=== PATIENT | male | born 1940 | race Caucasian/White ===

== ENCOUNTER → 2017-08-21 14:38 | Outpatient (POV) | payer MEDICARE, SELFPAY | PROVIDERS: Family Provider Internal Medicine Adolescent Medicine; Visit Provider Internal Medicine Nephrology | DX: Z00.00 Encounter for general adult medical examination without abnormal findings (principal) ==

== ENCOUNTER → 2018-03-08 14:01 | Outpatient (POV) | payer MEDICARE, SELFPAY | PROVIDERS: Family Provider Internal Medicine Adolescent Medicine; Visit Provider Internal Medicine Nephrology | DX: Z00.00 Encounter for general adult medical examination without abnormal findings (principal) ==

== ENCOUNTER → 2019-04-03 09:54 | Outpatient (CLI) | payer MEDICARE, OTHER, SELFPAY ==
--- NOTE | 2019-04-03 10:06 | ECG_ITS ---
APPROVED REPORT Exam: Resting ECG HR:61 bpm ECG Measurements Heart Rate 61 AXES NM 166 P 79 QRSd 80 QRS 62 QT 404 T 64 QTc 406 <Conclusion> Normal sinus rhythm with sinus arrhythmia Normal ECG Electronically signed by : Casimiro Cobos, 04/03/2019 13:42:47
[2019-04-03 10:49] LABS: Basophils # 0.1 K/mm3 (0-0.2); Eosinophils # 0.5 K/mm3 (0.0-0.4); Eosinophils % 5.6 % (0.1-12.0); Hematocrit 44.6 % (42.0-52.0); Hemoglobin 14.2 g/dL (14.1-18.0); Lymphocytes # 2.7 K/mm3 (0.7-4.5); Lymphocytes % 33.1 % (10-50); Mean Corpuscular HGB Conc 31.8 g/dL (31.8-35.4); Mean Corpuscular Hemoglobin 30.4 pg (27.0-31.2); Mean Corpuscular Volume 95.7 fl (80-94); Mean Platelet Volume 8.7 fl (7.4-10.4); Monocytes # 0.8 K/mm3 (0.1-1.0); Monocytes % 9.8 % (1.7-9.3); Neutrophils # 4.1 K/mm3 (1.8-7.8); Neutrophils % 50.4 % (37.0-80.0); Platelet Count 181 K/mm3 (142-424); Red Blood Count 4.66 M/mm3 (4.60-6.20); Red Cell Distribution Width 14.2 % (11.5-17.5); White Blood Count 8.1 K/mm3 (4.8-10.8)
== END ==
PROVIDERS: Visit Provider Otolaryngology
DX: Z01.818 Encounter for other preprocedural examination (principal); L98.9 Disorder of the skin and subcutaneous tissue, unspecified
CPT/HCPCS: 36415; 85025; 93005

== ENCOUNTER → 2022-01-04 09:29 | Outpatient (POV) | payer MEDICARE, OTHER, SELFPAY | PROVIDERS: Visit Provider Dermatology | DX: Z00.00 Encounter for general adult medical examination without abnormal findings (principal) ==

== ENCOUNTER → 2022-03-22 14:13 | Outpatient (POV) | payer MEDICARE, OTHER, SELFPAY | PROVIDERS: Visit Provider Dermatology | DX: Z00.00 Encounter for general adult medical examination without abnormal findings (principal) ==

== ENCOUNTER → 2022-04-12 12:52 | Outpatient (POV) | payer MEDICARE, OTHER, SELFPAY | PROVIDERS: Visit Provider Dermatology | DX: Z00.00 Encounter for general adult medical examination without abnormal findings (principal) ==

== ENCOUNTER 2024-02-20 09:00 | Observation (INO) | payer MEDICARE, OTHER, SELFPAY ==
[2024-02-20] VITALS (13 sets, daily range): BP systolic 136–186; BP diastolic 61–100; PULSE 54–102; RESP 15–21; TEMP 36.4–37; O2SAT 94–98; BMI 23.1; BMI 22.6
--- NOTE | 2024-02-20 09:03 | ECG_ITS ---
APPROVED REPORT Exam: Resting ECG HR:68 bpm ECG Measurements Heart Rate 68 AXES QRSd 93 QRS 57 QT 422 T 56 QTc 440 Conclusion Sinus rhythm with intermittent PVCs Electronically signed by : IWONA POLLARD, 02/20/2024 13:31:10
--- NOTE | 2024-02-20 09:08 | PC.NURSE ---
Family at BS
--- NOTE | 2024-02-20 09:10 | XR_ITS ---
FINAL REPORT CLINICAL HISTORY: Chest pain, dizziness, nausea FINDINGS: SINGLE-VIEW CHEST The heart size is normal. The mediastinum is normal. The lungs are clear. There is no pneumothorax. IMPRESSION: No acute cardiopulmonary process. Reviewed, Interpreted and Dictated by Gelacio Smith MD Transcribed by Mila Valdez Authenticated and [facility]
--- NOTE | 2024-02-20 09:13 | PC.NURSE ---
RAD at BS
[2024-02-20 09:15] LABS: Basophils # 0.1 K/mm3 (0-0.2); Basophils % 1.6 % (0.1-2.0); Eosinophils # 0.4 K/mm3 (0.0-0.4); Eosinophils % 5.2 % (0.1-12.0); Hematocrit 47.3 % (42.0-52.0); Hemoglobin 15.4 g/dL (14.1-18.0); Lymphocytes # 2.3 K/mm3 (0.7-4.5); Lymphocytes % 31.4 % (10-50); Mean Corpuscular HGB Conc 32.5 g/dL (31.8-35.4); Mean Corpuscular Hemoglobin 31.7 pg (27.0-31.2); Mean Corpuscular Volume 97.4 fl (80-94); Mean Platelet Volume 9.8 fl (7.4-10.4); Monocytes # 0.7 K/mm3 (0.1-1.0); Monocytes % 10.2 % (1.7-9.3); Neutrophils # 3.7 K/mm3 (1.8-7.8); Neutrophils % 51.6 % (37.0-80.0); Platelet Count 160 K/mm3 (142-424); Red Blood Count 4.85 M/mm3 (4.60-6.20); Red Cell Distribution Width 14.1 % (11.5-17.5); White Blood Count 7.2 K/mm3 (4.8-10.8)
[2024-02-20] MEDS: LACTATED RINGERS 1000ML 1,000 ML 999 ML IV (09:15)
[2024-02-20] MEDS: ONDANSETRON 4MG/2ML VIAL 4 MG IV (09:15)
[2024-02-20] MEDS: ASPIRIN 81MG CHEWABLE TABLET 324 MG PO (09:16)
--- NOTE | 2024-02-20 09:18 | PC.NURSE ---
Molina Bass at bedside
--- NOTE | 2024-02-20 09:20 | CT_ITS ---
FINAL REPORT TECHNIQUE: thin section axial CT with and without IV contrast supplemented with multiplanar 3-D reconstruction of the head. This study was performed with techniques to keep radiation doses as low as reasonably achievable, (ALARA)individualized dose reduction techniques using automated exposure control or adjustment of mA and/or kV according to the patient's size were employed. CLINICAL HISTORY: isolated dizziness, falling to left. FINDINGS: The cranial circulation is unremarkable. There is no significant stenosis, aneurysm or occlusion. The right A1 segment is dominant. IMPRESSION: No acute process. Reviewed, Interpreted and Dictated by Gelacio Smith MD Transcribed by Mila Valdez Authenticated and [facility]
--- NOTE | 2024-02-20 09:20 | CT_ITS ---
FINAL REPORT TECHNIQUE: NASCET technique utilized for stenosis evaluation. CLINICAL HISTORY: isolated dizziness, falling to left. FINDINGS: RIGHT CAROTID: No significant stenosis is seen of the cervical common or internal carotid artery. LEFT CAROTID: No significant stenosis seen of the cervical common or internal carotid artery. VERTEBRALS: The vertebral arteries are codominant. No significant stenosis is present. IMPRESSION: No significant arterial abnormality. Reviewed, Interpreted and Dictated by Gelacio Smith MD Transcribed by Mila Valdez Authenticated and . [facility]
--- NOTE | 2024-02-20 09:20 | CT_ITS ---
FINAL REPORT TECHNIQUE: Axial CT images were performed through the head. Coronal reformatted images were submitted. This study was performed with techniques to keep radiation doses as low as reasonably achievable (ALARA). Individualized dose reduction techniques using automated exposure control or adjustment of mA and/or kV according to the patient's size were employed. CLINICAL HISTORY: isolated dizziness, falling to left. FINDINGS: There is moderate atrophy with proportional ventriculomegaly. There is mild decreased attenuation in the deep white matter bilaterally. There is no evidence of hemorrhage. There is no mass or edema identified. There is no abnormal extra-axial fluid seen. The sinuses are well aerated. IMPRESSION: Chronic appearing findings without acute intracranial abnormality. Reviewed, Interpreted and Dictated by Gelacio Smith MD Transcribed by Mila Valdez Authenticated and . [facility]
--- NOTE | 2024-02-20 09:22 | PC.NURSE ---
Dr. Auguste would like to Stroke Alert pt. I notified radiology for pt to go STAT to scan.
[2024-02-20 09:23] LABS: Chloride 109 mmol/L (98-107); Sodium 138 mmol/L (136-145)
[2024-02-20 09:25] LABS: Magnesium 1.8 mg/dl (1.6-2.3)
[2024-02-20 09:26] LABS: Alanine Aminotransferase 15 U/L (12-78); Albumin/Globulin Ratio 1.6 (1.1-1.8); Alkaline Phosphatase 65 U/L (38-126); Aspartate Amino Transferase 31 U/L (17-59); Bilirubin,Total 0.8 mg/dl (0.2-1.3); Blood Urea Nitrogen 22 mg/dl (9-20); Calcium 8.8 mg/dl (8.4-10.2); Carbon Dioxide 25 mmol/L (22.0-30.0); Creatinine Clearance Estimated 45 mL/min (50-200); Estimated Glomerular Filt Rate 48 ml/min (>60); GFR (African American) 58 ML/MIN (>60); Globulin 2.5 g/dL (1.3-3.2); Glucose 161 mg/dl (74-100); Total Protein,Serum 6.5 g/dl (6.3-8.2)
[2024-02-20 09:34] LABS: NT Pro Brain Natriuretic Pep. 426 pg/mL (0-450)
[2024-02-20 09:42] LABS: T4 (Thyroxine) 8.1 ug/dl (5.53-11.0)
[2024-02-20] MEDS: SODIUM CHLORIDE 0.9% 10ML SYR (RAD ONLY) 10 ML IV (09:44)
[2024-02-20] MEDS: 0.9 % SODIUM CHLORIDE 50 ML VIAL IV (09:44)
[2024-02-20 09:45] LABS: Troponin I < 0.01 ng/ml (0.00-0.034)
[2024-02-20] MEDS: IOPAMIDOL-370 (76%);100ML BOTTLE 80 ML IV (09:45)
--- NOTE | 2024-02-20 10:11 | HMH.EDCP ---
Discharge Plan Disposition Patient Disposition: Admitted Chief Complaint: Dizziness Prescriptions Prescriptions: No Action pantoprazole 20 mg tablet,delayed release (DR/EC) 20 mg PO DAILY metformin 500 mg tablet 500 mg PO BID aspirin [Aspir-81] 81 mg tablet,delayed release (DR/EC) 81 mg PO DAILY levothyroxine 75 mcg capsule 75 mcg PO DAILY lisinopril-hydrochlorothiazide 10-12.5 mg tablet 1 tab PO DAILY Referrals Follow up/Referrals: Casimiro Cobos MD [Primary Care Provider] - See instructions Clinical Impressions Clinical Impression: Dizziness, Atrial bigeminy Print Language Print Language: Azeri Discharge ED Provider: Kevin Auguste HPI General Chief Complaint: Dizziness Stated Complaint: Chest Pain Time Seen by Provider: 02/20/24 09:08 History of Present Illness HPI narrative: Please note that above description of symptoms, in this electronic medical record under categorization of recalled from ER triage doctor by RN are reflective of an initial nursing assessment, however, is not reflective of my full history and physical exam that was personally taken and clarified. Consequentially, this preceding description of symptoms, which may include the patient's categorized chief complaint in the EMR, do not reflect my personal clinical impression, and the ultimate description of history of present illness and patient stated complaints should be deferred to this section of the note. Unless stated otherwise or congruent with this section of the note, additional signs, symptoms, or incongruence should be interpreted as inaccurate with my clinical impression. Related Data Home Medications ?Medication ?Instructions ?Recorded ?Confirmed aspirin 81 mg tablet,delayed 81 mg PO DAILY preventitive 02/25/19 12/13/21 release (Aspir-) levothyroxine 75 mcg capsule 75 mcg PO DAILY thyroid 02/25/19 12/13/21 lisinopril 10 1 tab PO DAILY blood pressure 02/25/19 12/13/21 mg-hydrochlorothiazide 12.5 mg tablet metformin 500 mg tablet 500 mg PO BID sugar 02/25/19 12/13/21 pantoprazole 20 mg tablet,delayed 20 mg PO DAILY stomach 02/25/19 12/13/21 release Allergies Allergy/AdvReac Type Severity Reaction Status Date / Time morphine Allergy Intermediate I-ITCHING Verified 12/13/21 12:56 [facility] Disclaimer: The information contained in this section may have been updated after the patient was seen, as this information can be updated by other users. Social History Smoking Status: Former smoker alcohol intake: never substance use type: denies use current occupational status: retired Travel in the last 8 weeks: None household members: spouse housing: house current occupational exposures/hazards: No caffeine: Yes ROS Obtained: Yes All systems reviewed & no additional complaints except as documented Physical Exam General General appearance: alert and in distress (Secondary to nausea) Eye Eye exam: Present normal appearance, PERRL and EOMI; Absent nystagmus Neck Neck exam: Present normal inspection and trachea midline Chest Chest inspection: Present normal inspection and symmetric chest wall rise Respiratory Respiratory exam: Present normal lung sounds bilaterally; Absent respiratory distress, wheezes, stridor, accessory muscle use or prolonged expiratory phase Cardiovascular Cardiovascular exam: Present normal rhythm, bradycardia, systolic murmur and other (Pulses equal and symmetric in upper and lower extremities) Abdominal Exam Abdominal exam: Present soft; Absent distention or tenderness Extremities Exam Extremities exam: Absent edema Neurological Exam Neurological exam: Present alert, oriented X3, CN II-XII intact and other (Cerebellar exam within normal limits); Absent motor sensory deficit Skin Skin exam: Present warm and dry; Absent cyanosis, diaphoresis or pallor HEART Score HEART Score HEART Score assessment performed?: Yes History (anamnesis): Moderately suspicious ECG: Normal Age: >65 years Risk factors: Atherosclerosis history Troponin: </= normal limit HEART Score: 5 Critical Care Critical Care Time Critical Care Time: Yes (neuro) Attestation: On 02/20/24, the high probability of a clinically significant, sudden or life threatening deterioration of the following system(s) required my full and direct attention, intervention and personal management. The time I documented below is in addition to time spent performing reported procedures but includes the following listed in this critical care notation. Total Time Total Critical Care Time: 45 Medical Decision Making Medical Records Medical records reviewed: Yes I reviewed the patient's medical records. Sreedhar Inquiry Pt receiving controlled substance: No Sreedhar was queried for this patient: No Vital Signs Vital Signs: 02/20/24 09:01 02/20/24 10:05 02/20/24 10:31 Temperature 98.6 F Temperature Source Oral Pulse Rate 62 Pulse Rate [Right] 102 H Respiratory Rate 17 16 Blood Pressure 177/70 H 171/72 H Blood Pressure [Right Arm] 186/100 H Blood Pressure Mean 111 105 Blood Pressure Mean [Right Arm] 128 Blood Pressure Source [Right Arm] Automatic Cuff 02 Sat by Pulse Oximetry 98 98 Oxygen Delivery Method Room Air Room Air 02/20/24 11:01 02/20/24 11:31 Temperature Temperature Source Pulse Rate 62 59 L Pulse Rate [Right] Respiratory Rate 18 Blood Pressure 169/75 H 170/87 H Blood Pressure [Right Arm] Blood Pressure Mean 108 111 Blood Pressure Mean [Right Arm] Blood Pressure Source [Right Arm] 02 Sat by Pulse Oximetry 95 95 Oxygen Delivery Method Room Air Room Air Lab Data Labs: Lab Results 02/20/24 09:01: WBC 7.2, RBC 4.85, Hgb 15.4, Hct 47.3, MCV 97.4 H, MCH 31.7 H, MCHC 32.5, RDW 14.1, Plt Count 160, MPV 9.8, Neut % (Auto) 51.6, Lymph % (Auto) 31.4, Carlton % (Auto) 10.2 H, Eos % (Auto) 5.2, Baso % (Auto) 1.6, Neut # (Auto) 3.7, Lymph # (Auto) 2.3, Carlton # (Auto) 0.7, Eos # (Auto) 0.4, Baso # (Auto) 0.1, Sodium 138, Potassium 4.0, Chloride 109 H, Carbon Dioxide 25, Anion Gap 8.0, BUN 22 H, Creatinine 1.40 H, Estimated Creat Clear 45, Estimated GFR 48 L, Est GFR ( Amer) 58 L, Glucose 161 H, Hemoglobin A1c 6.9 H, Calcium 8.8, Magnesium 1.8, Total Bilirubin 0.8, AST 31, ALT 15, Alkaline Phosphatase 65, Troponin I < 0.01, NT-Pro-B Natriuret Pep 426, Total Protein 6.5, Albumin 4.0, Globulin 2.5, Albumin/Globulin Ratio 1.6, TSH 16.30 H, Thyroxine (T4) 8.1 02/20/24 09:01 02/20/24 09:01 Response Orders (Tests/Meds): ED MEDICATIONS Discontinued Medications Generic Name Dose Route Start Last Admin Trade Name Freq PRN Reason Stop Dose Admin Aspirin 324 mg 02/20/24 09:11 02/20/24 09:16 Aspirin 81mg Chewable Tablet PO 02/20/24 09:12 324 mg ONCE ONE Administration Lactated Ringer's 1,000 mls @ 999 mls/hr 02/20/24 09:13 02/20/24 09:15 Lactated Ringer's 1000 Ml Bag IV 02/20/24 10:13 999 mls/hr .Q1H1M ONE Administration Iopamidol 80 ml 02/20/24 09:39 02/20/24 09:45 Iopamidol-370 (76%);100ml Bottle IV 02/20/24 09:40 80 ml ONCE ONE Administration Meclizine HCl 50 mg 02/20/24 11:38 Meclizine 25mg Tablet PO 02/20/24 11:39 ONCE ONE Ondansetron HCl 4 mg 02/20/24 09:13 02/20/24 09:15 Ondansetron 4mg/2ml Vial IV 02/20/24 09:14 4 mg ONCE ONE Administration Sodium Chloride 50 ml 02/20/24 09:39 02/20/24 09:44 0.9 % Sodium Chloride 50 Ml Vial IV 02/20/24 09:40 50 ml ONCE ONE Administration Sodium Chloride 10 ml 02/20/24 09:39 02/20/24 09:44 Sodium Chloride 0.9% 10ml Syr (Rad Only) IV 02/20/24 09:40 10 ml ONCE ONE Administration ORDERS Category Date Time Status CT angio head Stat Cat Scan 02/20/24 09:[address] angio neck Stat Cat Scan 02/20/24 09:[address] head/brain wo con Stat Cat Scan 02/20/24 09:20 Completed Cardiology Consult [Consult to Cardiology] [CONS] Cons 02/20/24 11:38 Active Routine CXR --portable [XR chest portable] Stat Exams 02/20/24 09:10 Completed CMP [Comprehensive Metabolic Panel] Stat Lab 02/20/24 09:01 Completed Complete Blood Count Auto Diff Stat Lab 02/20/24 09:01 Completed Hemoglobin A1C Stat Lab 02/20/24 09:01 Completed MAG [Magnesium] Stat Lab 02/20/24 09:01 Completed NT Pro Brain Natriuretic Pep. Stat Lab 02/20/24 09:01 Completed T4 (Thyroxine) Stat Lab 02/20/24 09:01 Completed TSH [Thyroid Stimulating Hormone] Stat Lab 02/20/24 09:01 Completed Troponin I Q3H Lab 02/20/24 12:15 Ordered Troponin I Q3H Lab 02/20/24 15:15 Ordered Troponin I Stat Lab 02/20/24 09:01 Completed MDM Narrative Medical Decision Narrative: 83 male who hypertension, hyperlipidemia, dm, hypothyroidism presenting with dizziness. Patient states that he woke up around 7 AM with dizziness that he is never had before. Started also having chest pain. Called EMS. EMS arrived, patient no longer complaining of chest pain, but having dizziness. States that he was falling to the left, family corroborating story. Patient states he is never had a history of vertigo, never had anything like this in the past. No current chest pain, no other neurologic deficits. No vision changes, headache, but has been nauseated and vomiting due to the dizziness. History was obtained via conversation with patient, family, EMS. On arrival, patient hemodynamically stable, alert, oriented x4, appropriate, GCS 15, moving all extremities spontaneously, pupils equal and reactive to light. Full physical exam performed and significant for NIHSS 0. Cranial nerve, cerebellar, motor and sensory exams normal. Ambulation trial deferred at this time. Patient's cardiac exam with right upper sternal border murmur concerning for aortic stenosis, but no other abnormalities on cardiovascular exam. Lungs are clear to auscultation bilaterally. Differential includes posterior circulation stroke, BPPV, metabolic abnormality, arrhythmia, ACS, MA, dissection, among others. Patient was given 324 mg aspirin, 4 mg Zofran for symptomatic management and correction of underlying abnormalities. Patient placed on continuous cardiac monitoring and continuous pulse ox with initial blood pressure 177/70, heart rate 62, saturation 98% on room air. Independent interpretation of EKG shows sinus rhythm 68 beats a minute with intermittent PVCs. No ST or T wave changes concerning for acute ischemia. FL within normal limits, QRS 93, QTc 440 Workup independently interpreted and significant for nonactionable CBC. Chemistry with mild HUNTER versus CKD, unknown baseline, creatinine 1.4. Patient's troponin and BNP nonactionable. Chest x-ray negative.. On independent interpretation of imaging, no acute intracranial hemorrhage, no obvious vascular stenosis, dissection, or other abnormality on CTA head and neck. See radiology read for full review of final results. Heart score 5. He was consulted and case was discussed at length. They visited patient. Recommended admission for telemetry monitoring. On reevaluation, patient remains dizzy, nauseated. Meclizine was given. I am still concerned about posterior circulation stroke that was not identified on CTA of the head and neck. Because of this, as well as cardiology recommendations, I contacted hospitalist and case was discussed at length, ultimately patient to be admitted for further MRI, cardiac monitoring, and further evaluation. Because patient high risk for clinical decompensation, deemed appropriate for inpatient admission. Results were relayed to patient who voiced understanding and patient was agreeable to inpatient admission and management. Patient was admitted to the hospital for further definitive management. Section Housekeeper disclaimer Much of this encounter note is an electronic reinforcing steel worker spoken language to printed text. Electronic reinforcing steel worker of the spoken language may permit errors. Although I have reviewed the note, some errors may still exist.
--- NOTE | 2024-02-20 11:23 | PC.NURSE ---
Called Cardiology per Dr Auguste to have them come and see this pt
--- NOTE | 2024-02-20 11:41 | PC.NURSE ---
Dianna Valdovinos APRN in Cardiology returned call, gave information for consult.
[2024-02-20 12:12] LABS: Hemoglobin A1C 6.9 % (4.0-6.0)
[2024-02-20] MEDS: MECLIZINE 25MG TABLET 50 MG PO (12:28)
--- NOTE | 2024-02-20 12:40 | CA_ITS ---
APPROVED REPORT EXAM: Comprehensive 2D, Doppler, and color-flow Echocardiogram Security Assistant: PRESTON Alvarado, RVS Ht: 6 ft 2 in Wt: 180lbs BSA: 2.08 BP: 170/87 mmHg Rhythm: Bradycardia Indications: CP, MurmurVertigo, Brett cardia, SOA, Ex-smoker, DM, HTN, HLD 2D Dimensions IVSd 1.13 cm M: 0.6-1.2 LVEF (Visual) 49.20 % PWd 1.12 cm M: 0.6 - 1.2 LA Volume 56.10 mL LVDd 4.71 cm M: 4.2 - 5.9 LA Volume Index [id number] mL/m2 (M/F) 16-34 LVDs 3.54 cm M: 2.5 - 4.0 Left Atrium 4.02 cm M: 3.0 - 4.0 M-Mode Dimensions RVDd 3.35 cm (0.9-2.6) LA Diam 3.76 cm (1.9-4.0) LVDd 4.45 cm (3.5-5.7) LVDs 3.51 cm (3.5-5.7) IVSd 1.00 cm (0.6-1.1) PWd 0.90 cm (0.6-1.1) EF (Teich) 43.20% EPSs 0.87 cm FS 21.10% EDV (Teich) 90.10 mL TAPSE 2.01 (<1.7) ESV (Teich) 51.20 mL LV Diastology E Decel Time 227 (160-240 msec) E/A Ratio 0.85 MED A' 12.00 cm/s LAT A' 11.50 cm/s Aortic Valve MAGGIE Index 1.46 cm2/m2 AoV Peak Romeo. 119.0 (50-130 cm/s) AO Peak GR. 5.60 mmHg AO Mean GR. 2.80 (<5 mmHg) AO VTI 28.4 (18-25 cm) MAGGIE (VTI) 3.11 (2.5-4.5 cm2) Mitral Valve MV A Velocity 83.0 (40-130 cm/s) E/A Ratio 0.85 Pulmonary Valve [place] End VMAX 178.0 cm/s Tricuspid Valve TR P. Velocity 276.00 cm/s RAP Estimate 10.00 mmHg RVSP 40.50 mmHg Left Ventricle The left ventricle is normal size. The left ventricular systolic function is normal. The left ventricular ejection fraction is within the normal range. There is increased LV wall thickness. Proximal septal thickening is noted. There is normal LV segmental wall motion. The left ventricular diastolic function is normal. LVEF is 55%. Right Ventricle Right ventricle is mildly dilated. The right ventricular systolic function is normal. Atria The left atrium size is normal. The right atrium is mildly dilated. There is no Doppler evidence of interatrial shunt. Aortic Valve The aortic valve is mildly thickened. There is no aortic valvular stenosis. No aortic regurgitation. Mitral Valve The mitral valve is normal in structure. No evidence of mitral valve stenosis. Mild mitral regurgitation. Tricuspid Valve The tricuspid valve leaflets are thin and pliable. Mild tricuspid regurgitation. RVSP is 30-35 mmHg. Pulmonic Valve The pulmonary valve is normal in structure. Trace pulmonic regurgitation. Great Vessels The aortic root is normal in size. The ascending aorta is normal in size. IVC is normal in size and collapses >50% with inspiration. Pericardium There is no pericardial effusion. Other Information Study Quality: Fair Conclusion Normal biventricular systolic function. Mild RV dilation. Mild RA dilation. Mild MR, mild TR. RVSP 30-35 mmHg. Electronically signed by : Sadaf Ballesteros MD 02/21/2024 10:07:19
--- NOTE | 2024-02-20 12:44 | P.CONCA_ITS ---
History of Present Illness History of Present Illness Consult date: 02/20/24 Requesting physician: Kevin Auguste Chief complaint: dizziness History of present illness: This is an 83-year-old white gentleman who presented to the emergency department complaints of dizziness. He has a past medical history of hypertension, hyperlipidemia, diabetes mellitus and hypothyroidism. The patient has been noncompliant with his medications and stopped taking all of his medicines about 6 months or more ago. The patient states that he woke up around 7 AM this morning with dizziness. He states that he was severely dizzy and when he tried to sit up on the bed he was leaning to his left. He states that he was unable to really sit up independently because of how dizzy he was. He states that his had to help him walk to the chair. He states that this was severe. He states at times it feels like the room is spinning and then at times it feels like he is the one spinning and very dizzy and unsteady and feels like he is leaning to the left. He denied any chest pain or pressure. He states he is short of breath intermittently at times and no worse than usual for him. He denies any lower extremity edema. He does have associated nausea with the dizziness. He states that he has been dry heaving and vomited small amounts on 2 or 3 occasions because of the significant dizziness. He denies any fever, chills, diarrhea constipation, PND or orthopnea. 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 Upon arrival to the emergency department the patient was found to be in ventricular bigeminy and had an elevated blood pressure with a systolic blood pressure greater than 170. Cardiology was then consulted. CTA of the head and neck were both negative for any acute processes. [facility] Disclaimer: The information contained in this section may have been updated after the patient was seen, as this information can be updated by other users. Medical History (Updated 02/20/24 @ 13:05 by Dianna Valdovinos APRN) Renal insufficiency Medical non-compliance Hypothyroidism Diabetes mellitus Hyperlipidemia Hypertension Ventricular bigeminy Social History Smoking Status: Former smoker alcohol intake: never substance use type: denies use current occupational status: retired Travel in the last 8 weeks: None household members: spouse housing: house current occupational exposures/hazards: No caffeine: Yes Review of Systems Review of Systems Review of systems:: pertinent systems reviewed and negative unless documented below Constitutional Constitutional: Reports system reviewed and no additional complaints, except as documented and Denies headache(s) Eyes Eyes: Reports system reviewed and no additional complaints, except as documented ENT Ears, Nose, Mouth, and Throat: Reports system reviewed and no additional complaints, except as documented, Reports disequilibrium, Reports dizziness and Denies headache(s) *Cardiovascular Cardiovascular: Reports system reviewed and no additional complaints, except as documented, Denies chest pain, Reports dyspnea on exertion and Reports ligh theadedness *Respiratory Respiratory: Reports system reviewed and no additional complaints, except as documented and Reports dyspnea on exertion *Gastrointestinal Gastrointestinal: Reports system reviewed and no additional complaints, except as documented *Genitourinary Genitourinary: Reports system reviewed and no additional complaints, except as documented *Musculoskeletal Musculoskeletal: Reports system reviewed and no additional complaints, except as documented Integumentary/Breasts Skin/Breast: Reports system reviewed and no additional complaints, except as documented *Neurologic Neurologic: Reports system reviewed and no additional complaints, except as documented, Reports disequilibrium, Reports dizziness and Denies headache(s) Psychiatric Psychiatric: Reports system reviewed and no additional complaints, except as documented Endocrine Endocrine: Reports system reviewed and no additional complaints, except as documented Hematologic/Lymphatic Hematologic/Lymphatic: Reports system reviewed and no additional complaints, except as documented Allergic/Immunologic Allergic/Immunologic: Reports system reviewed and no additional complaints, except as documented Exam Data for Last 24 hours Vital signs and Labs for Last 24 Hours: Temp Pulse Resp BP Pulse Ox O2 Del Method 98.6 F 63 18 165/66 H 96 Room Air 02/20/24 09:01 02/20/24 12:01 02/20/24 11:31 02/20/24 12:01 02/20/24 12:02/20/24 12:01 Laboratory Results - last 24 hr 02/20/24 09:01: WBC 7.2, RBC 4.85, Hgb 15.4, Hct 47.3, MCV 97.4 H, MCH 31.7 H, MCHC 32.5, RDW 14.1, Plt Count 160, MPV 9.8, Neut % (Auto) 51.6, Lymph % (Auto) 31.4, [place] % (Auto) 10.2 H, Eos % (Auto) 5.2, Baso % (Auto) 1.6, Neut # (Auto) 3.7, Lymph # (Auto) 2.3, [place] # (Auto) 0.7, Eos # (Auto) 0.4, Baso # (Auto) 0.1, Sodium 138, Potassium 4.0, Chloride 109 H, Carbon Dioxide 25, Anion Gap 8.0, BUN 22 H, Creatinine 1.40 H, Estimated Creat Clear 45, Estimated GFR 48 L, Est GFR ( Amer) 58 L, Glucose 161 H, Hemoglobin A1c 6.9 H, Calcium 8.8, Magnesium 1.8, Total Bilirubin 0.8, AST 31, ALT 15, Alkaline Phosphatase 65, Troponin I < 0.01, NT-Pro-B Natriuret Pep 426, Total Protein 6.5, Albumin 4.0, Globulin 2.5, Albumin/Globulin Ratio 1.6, TSH 16.30 H, Thyroxine (T4) 8.1 I & O for Last 24 hours: Intake & Output 02/17/24 02/18/24 02/19/24 02/20/24 23:59 23:59 23:59 23:59 Weight 180 lb Narrative: EKG is sinus rhythm with PVCs and a rate of 68 bpm. Telemetry strip is sinus rhythm with ventricular bigeminy and a rate in the 60s. Constitutional Constitutional: no acute distress and average body habitus *Routine HEENT Exam Head: Present normocephalic and atraumatic ENT: Present mucous membranes moist *Routine Neck Exam Neck: Present supple, full ROM and normal carotid upstroke; Absent JVD, carotid bruit or lymphadenopathy *Routine Respiratory Exam Respiratory: Present CTA bilaterally, normal respiratory effort, able to speak in complete sentences and symmetric chest movement *Routine Cardiovascular Exam Cardiovascular: Present RRR, Normal S1 and Normal S2; Absent murmur or gallop *Routine Abdominal Exam Abdominal: Present soft and normoactive bowel sounds; Absent tenderness, distended or organomegaly *Routine Extremities Exam Extremities: Present full ROM, pulses intact and normal capillary refill; Absent cyanosis, clubbing or edema *Routine Skin Exam Skin: Present intact and warm; Absent erythema *Routine Neurological Exam Neurological: Present alert, oriented X3 and CN II-XII intact; Absent sensory deficit or motor deficit Routine Psychiatric Exam Psychiatric: Present normal affect Meds Home Medications and Allergies Home Medications ?Medication ?Instructions ?Recorded ?Confirmed ?Type aspirin 81 mg tablet,delayed 81 mg PO DAILY preventitive 02/25/19 12/13/21 History release (Aspir-) levothyroxine 75 mcg capsule 75 mcg PO DAILY thyroid 02/25/19 12/13/21 History lisinopril 10 1 tab PO DAILY blood pressure 02/25/19 12/13/21 History mg-hydrochlorothiazide 12.5 mg tablet metformin 500 mg tablet 500 mg PO BID sugar 02/25/19 12/13/21 History pantoprazole 20 mg tablet,delayed 20 mg PO DAILY stomach 02/25/19 12/13/21 History release New Prescriptions to Start Prescriptions: Allergies Allergy/AdvReac Type Severity Reaction Status Date / Time morphine Allergy Intermediate I-ITCHING Verified 12/13/21 12:56 Assessment and Plan *Assessment and plan (1) Dizziness: Status: Acute Category: Medical Code(s): R42 - Dizziness and giddiness (2) Ventricular bigeminy: Status: Acute Category: Medical Code(s): I49.8 - Other specified cardiac arrhythmias (3) Hypertension: Status: Acute Qualifiers: Hypertension type: primary hypertension Qualified Code(s): I10 - Essential (primary) hypertension Category: Medical Code(s): I10 - Essential (primary) hypertension (4) Hyperlipidemia: Status: Acute Qualifiers: Hyperlipidemia type: mixed hyperlipidemia Qualified Code(s): E78.2 - Mixed hyperlipidemia Category: Medical Code(s): E78.5 - Hyperlipidemia, unspecified (5) Diabetes mellitus: Status: Acute Qualifiers: Diabetes mellitus complication status: without complication 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: without construction 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 use Diabetes mellitus type: type 2 Qualified Code(s): E11.9 - Type 2 diabetes mellitus without complications Category: Medical Code(s): E11.9 - Type 2 diabetes mellitus without complications (6) Hypothyroidism: Status: Acute Qualifiers: Hypothyroidism type: unspecified Qualified Code(s): E03.9 - Hypothyroidism, unspecified Category: Medical Code(s): E03.9 - Hypothyroidism, unspecified (7) Medical non-compliance: Status: Acute Category: Medical Code(s): Z91.199 - Patient's noncompliance with other medical treatment and regimen due to unspecified reason (8) Renal insufficiency: Status: Acute Category: Medical Code(s): N28.9 - Disorder of kidney and ureter, unspecified Plan Plan: 1. The patient presented to the emergency department with complaints of dizziness. He is still quite dizzy during my physical examination. However, he is neurologically intact and no nystagmus is noted. He remains in ventricular bigeminy during the cardiology examination. We do recommend that the patient be admitted to the hospital and placed on telemetry for observation for at least 24 hours. We want to rule out any high-grade AV blocks, bradycardia or tacky arrhythmias secondary to the ventricular bigeminy. 2. Will obtain an echocardiogram to evaluate his LV function secondary to his dizziness and shortness of breath. 3. CTA of the head and neck were negative for any stenosis. 4. Recommend a brain MRI with and without contrast in the morning to definitively rule out a CVA. 5. He denies any chest pain or pressure. His initial troponin is negative. We do recommend serial troponins to rule out a non-STEMI. 6. His blood pressure is elevated. He reports that he stopped taking his medicine over 6 months ago. He needs better control of his blood pressure. Will restart lisinopril 10 mg p.o. daily. 7. Repeat a BMP in the morning. His creatinine is 1.4 today so we want to make sure that this does not worsen with 3 initiating lisinopril. 8. The patient does have hypothyroidism. His TSH is greater than 16. This could be the cause of his ventricular ectopy. The patient does need treatment of his hypothyroidism. Will defer this to the hospitalist. 9. Further recommendations will be made pending the patient's response to treatment and the results of his echocardiogram. Thank you for the opportunity to help participate in the care of this patient. All recommendations and orders are per Dr. Ballesteros.
[2024-02-20] MEDS: LISINOPRIL 10MG TABLET 10 MG PO (13:51)
--- NOTE | 2024-02-20 14:00 | EXP.HP ---
History of Present Illness *Admission Date: 02/20/24 *Reason for visit:: Dizziness *History of present illness: This is an 83-year-old white gentleman with past medical history of renal insufficiency, hypothyroidism, diabetes, hyperlipidemia, hypertension, bigeminy. Patient admits to 6 months of medical noncompliance for unknown reasons. Patient presents to hospital complaining of dizziness starting at 7 AM. Patient reports left-sided falling due to ataxia with vertigo/lightheadedness symptoms noted. Patient unable to sit/stand without ataxia secondary to dizziness symptoms. Denies recent infections. Admits to dry heaves and small emesis today. Denies abdominal pain, diarrhea, constipation, fevers, chills, known sick contacts, lower extremity swelling, SOB/VELEZ. Patient found to be bradycardic upon presentation in emergency room. Patient required assistance from today to prevent fall secondary to ataxia. Patient's blood pressure elevated in emergency room with systolic over 170s. CTA head/neck in emergency room negative for acute CVA. Patient noted to be in bigeminy at time of initial ED evaluation. [facility] Disclaimer: The information contained in this section may have been updated after the patient was seen, as this information can be updated by other users. Medical History (Updated 02/20/24 @ 13:05 by Dianna Valdovinos APRN) Renal insufficiency Medical non-compliance Hypothyroidism Diabetes mellitus Hyperlipidemia Hypertension Ventricular bigeminy Social History Smoking Status: Former smoker alcohol intake: never substance use type: denies use current occupational status: retired Travel in the last 8 weeks: None household members: spouse housing: house current occupational exposures/hazards: No caffeine: Yes Review of Systems Constitutional Constitutional: Reports system reviewed and no additional complaints, except as documented ENT Ears, Nose, Mouth, and Throat: Reports disequilibrium and Reports dizziness *Neurologic Neurologic: Reports system reviewed and no additional complaints, except as documented, Reports disequilibrium and Reports dizziness Meds Home Medications and Allergies Home Medications ?Medication ?Instructions ?Recorded ?Confirmed ?Type No Known Home Medications 02/20/24 02/20/24 History New Prescriptions to Start Prescriptions: Allergies Allergy/AdvReac Type Severity Reaction Status Date / Time morphine Allergy Intermediate I-ITCHING Verified 12/13/21 12:56 Exam Data for Last 24 hours Vital signs and Labs for Last 24 Hours: Temp Pulse Resp BP Pulse Ox O2 Del Method 98.6 F 63 18 165/66 H 96 Room Air 02/20/24 09:01 02/20/24 12:01 02/20/24 11:31 02/20/24 12:01 02/20/24 12:01 02/20/24 12:01 Laboratory Results - last 24 hr 02/20/24 09:01: WBC 7.2, RBC 4.85, Hgb 15.4, Hct 47.3, MCV 97.4 H, MCH 31.7 H, MCHC 32.5, RDW 14.1, Plt Count 160, MPV 9.8, Neut % (Auto) 51.6, Lymph % (Auto) 31.4, [place] % (Auto) 10.2 H, Eos % (Auto) 5.2, Baso % (Auto) 1.6, Neut # (Auto) 3.7, Lymph # (Auto) 2.3, [place] # (Auto) 0.7, Eos # (Auto) 0.4, Baso # (Auto) 0.1, Sodium 138, Potassium 4.0, Chloride 109 H, Carbon Dioxide 25, Anion Gap 8.0, BUN 22 H, Creatinine 1.40 H, Estimated Creat Clear 45, Estimated GFR 48 L, Est GFR ( Amer) 58 L, Glucose 161 H, Hemoglobin A1c 6.9 H, Calcium 8.8, Magnesium 1.8, Total Bilirubin 0.8, AST 31, ALT 15, Alkaline Phosphatase 65, Troponin I < 0.01, NT-Pro-B Natriuret Pep 426, Total Protein 6.5, Albumin 4.0, Globulin 2.5, Albumin/Globulin Ratio 1.6, TSH 16.30 H, Thyroxine (T4) 8.1 I & O for Last 24 hours: Intake & Output 02/17/24 02/18/24 02/19/24 02/20/24 23:59 23:59 23:59 23:59 Weight 81.647 kg Constitutional Constitutional: no acute distress *Routine HEENT Exam Head: Present normocephalic Eye: Present EOMI ENT: Present mucous membranes moist *Routine Neck Exam Neck: Present supple and full ROM *Routine Respiratory Exam Respiratory: Present diminished air movement *Routine Cardiovascular Exam Cardiovascular: Present RRR, Normal S1 and Normal S2 *Routine Abdominal Exam Abdominal: Present soft and normoactive bowel sounds *Routine Rectal Exam Rectal:: deferred *Routine Genitalia Exam Genitalia:: deferred *Routine Extremities Exam Extremities: Present full ROM and normal capillary refill *Routine Skin Exam Skin: Present intact and dry *Routine Neurological Exam Neurological: Present alert, oriented X3 and abnormal gait Assessment and Plan *Assessment and plan (1) Renal insufficiency: Status: Acute Category: Medical Code(s): N28.9 - Disorder of kidney and ureter, unspecified (2) Diabetes mellitus: Status: Acute Qualifiers: Diabetes mellitus complication status: without complication Diabetes mellitus senior living insulin use: without intermediate accountant use Diabetes mellitus type: type 2 Qualified Code(s): E11.9 - Type 2 diabetes mellitus without complications Category: Medical Code(s): E11.9 - Type 2 diabetes mellitus without complications (3) Ventricular bigeminy: Status: Acute Category: Medical Code(s): I49.8 - Other specified cardiac arrhythmias (4) Hypertension: Status: Acute Qualifiers: Hypertension type: primary hypertension Qualified Code(s): I10 - Essential (primary) hypertension Category: Medical Code(s): I10 - Essential (primary) hypertension (5) Dizziness: Status: Acute Category: Medical Code(s): R42 - Dizziness and giddiness (6) Hypothyroidism: Status: Acute Qualifiers: Hypothyroidism type: unspecified Qualified Code(s): E03.9 - Hypothyroidism, unspecified Category: Medical Code(s): E03.9 - Hypothyroidism, unspecified Plan 83-year-old with past medical history of renal insufficiency, hypertension, diabetes, hyperlipidemia, hypertension presents with dizziness and bigeminy. Patient ataxic gait emergency room and falls to the right. Patient admits to stopping home medications 6 months ago for unknown reasons. Dizziness rule out arrhythmia or brain symptoms for CVA vs vestibular neuritis: ? CT imaging in emergency room showed no signs of acute CVA. Will order MRI during hospitalization. PT/OT evaluation. Place patient on telemetry to monitor for AV blocks and arrhythmias. Also consult cardiology. Order serial troponins. HUNTER superimposed on CKD: Gentle hydration during hospitalization Hypertension: Patient stopped meds 6 months ago for unknown reasons. Restart BP meds during hospitalization. Diabetes: Sinus, insulin, ACHS Accu-Cheks. hemoglobin A1c 6.9 confirming diabetes diagnosis.. Subclinical hypothyroidism: Patient with high TSH but normal T4. Will monitor during hospitalization and only treat the patient becomes symptomatic PPx: Lovenox subcutaneous FEN: Cardiac diet CODE STATUS: Full
[2024-02-20 14:27] LABS: Troponin I < 0.01 ng/ml (0.00-0.034)
[2024-02-20] MEDS: ENOXAPARIN 40MG/0.4ML SYRINGE 40 MG SQ (14:31)
[2024-02-20] MEDS: 0.9 % SODIUM CHLORIDE 1000ML 1,000 ML 100 ML IV (14:31)
[2024-02-20 16:49] LABS: Troponin I < 0.01 ng/ml (0.00-0.034)
[2024-02-20 17:00] LABS: POC Glucose,Bedside 202 (70-110)
[2024-02-20] MEDS: humaLOG 100 UNITS/ML 10ML VIAL (SSI) SQ (17:17)
[2024-02-21] VITALS: BP 141/69; PULSE 54; PULSE 59; RESP 18; TEMP 36.8; O2SAT 93
[2024-02-21] MEDS: 0.9 % SODIUM CHLORIDE 1000ML 1,000 ML 100 ML IV (00:40)
[2024-02-21 04:00] VITALS: BP 123/55; PULSE 60; PULSE 65; RESP 16; TEMP 36.6; O2SAT 97; BMI 23.9
[2024-02-21 05:41] LABS: POC Glucose,Bedside 121 (70-110)
--- NOTE | 2024-02-21 06:00 | MR_ITS ---
FINAL REPORT CLINICAL HISTORY: dizziness, CVA symptoms COMPARISON: None FINDINGS: Multiplanar MR imaging of the brain was performed without and with contrast. There is no evidence of intracranial hemorrhage or mass. No abnormal extra-axial fluid collection is seen. Mild to moderate atrophy is present with proportional mild ventriculomegaly. There are patchy areas of increased signal in periventricular white matter, consistent with mild changes of ischemic/gliotic microvascular disease. There is no evidence of shift of the midline structures. The posterior fossa and brainstem have an unremarkable appearance. No area of abnormal restricted diffusion is identified. No abnormal contrast enhancement is seen. Normal major vessel vascular flow voids are noted. There is mild increase signal in the left mastoid air cells consistent with chronic mastoiditis. IMPRESSION: Mild to moderate atrophy with proportional ventriculomegaly. Patchy increased signal in the periventricular white matter consistent with chronic mild ischemic/gliotic microvascular disease. Mild increased signal in the left mastoid air cells consistent with chronic mastoiditis. Reviewed, Interpreted and Dictated by Gelacio Smith MD Transcribed by Chayo Ross Authenticated and [facility]
[2024-02-21 08:00] VITALS: BP 128/61; PULSE 65; RESP 19; TEMP 36.6; O2SAT 94
--- NOTE | 2024-02-21 08:03 | HMH.PTEV ---
Physical Therapy Evaluation Rehab PT IP Evaluation Start: 02/20/24 13:59 Freq: ONCE Status: Active Protocol: Document 02/21/24 07:45 JERI (Rec: 02/21/24 07:53 JERI [id number]) Subjective/History History History Per H&P: This is an 83-year-old white gentleman with past medical history of renal insufficiency , hypothyroidism, diabetes, hyperlipidemia, hypertension, bigeminy. Patient admits to 6 months of medical noncompliance for unknown reasons. Patient presents to hospital complaining of dizziness starting at 7 AM. Patient reports left-sided falling due to ataxia with vertigo/lightheadedness symptoms noted. Patient unable to sit/stand without ataxia secondary to dizziness symptoms. Denies recent infections. Admits to dry heaves and small emesis today. Denies abdominal pain, diarrhea, constipation, fevers , chills, known sick contacts, lower extremity swelling, SOB /VELEZ. Patient found to be bradycardic upon presentation in emergency room. Patient required assistance from today to prevent fall secondary to ataxia. Patient' s blood pressure elevated in emergency room with systolic over 170s. CTA head/neck in emergency room negative for acute CVA. Patient noted to be in bigeminy at time of initial ED evaluation. Subjective Subjective Pt visibly frustrated with PT' s history taking questions. I have no trouble walking . Pt lives with his in a split level home. Pt's bedroom is on the second floor (4 steps). Pt IND with all mobility prior to admission. Pt still driving before admission. New diagnosis of cancer in past 12 No months? Rehab PT IP Eval Objective Appearance Patient Behavior Cooperative Patient Orientation Person,Situation Difficulty following instructions none Speech Pattern Clear Ambulation Patient Able to Ambulate Yes Ambulation Observation IP General Gait Pattern Observation No Deviations/Normal Ambulation Distance (feet) 20 Ambulation Assistive Device None Ambulation Ability Supervision/Stand by Balance Ability to Arise Able, w/o using arms Sitting Balance Steady, safe Standing Balance Narrow stance w/o support Transfers Bed Transfer Ability Independent Sit to Stand Bed Transfer Ability Independent Rehab PT IP prob,goals,plan Problems Date of Evaluation: 02/21/24 Rehab Potential Rehab Potential Innapropriate for Skilled Therapy Discharge Plan PT Discharge Plan Pt frustrated with PT's request to demo functional mobility. Pt ambulated with SUP and VCs to control speed. Pt demo'd good balance. Pt safe to d/c home when deemed medically necessary d/t current level of mobility, home set-up, and family support. Pt not appropriate for skilled acute care PT at this time d/t pt?s mobility being at baseline. Eval Complexity Eval Charge Codes 40823 - Moderate Complexity PHYSICIAN CERTIFICATION: I certify the specified therapy services for Layo Bergeron are required, authorized, and reviewed every 30 days.
[2024-02-21] MEDS: LISINOPRIL 10MG TABLET 10 MG PO (09:55)
[2024-02-21] MEDS: DOCUSATE SODIUM 100 MG CAPSULE PO (09:55)
[2024-02-21] MEDS: ENOXAPARIN 40MG/0.4ML SYRINGE 40 MG SQ (09:55)
[2024-02-21 09:58] LABS: Albumin Level 3.3 g/dl (3.5-5.0); Chloride 108 mmol/L (98-107)
[2024-02-21 09:59] LABS: Potassium 4.5 mmoL/L (3.5-5.1); Sodium 139 mmol/L (136-145)
[2024-02-21 10:01] LABS: Alanine Aminotransferase 13 U/L (12-78); Aspartate Amino Transferase 20 U/L (17-59); Blood Urea Nitrogen 18 mg/dl (9-20); Chloride 108 mmol/L (98-107); Creatinine Clearance Estimated 43 mL/min (50-200); Estimated Glomerular Filt Rate 44 ml/min (>60); GFR (African American) 54 ML/MIN (>60); Potassium 4.8 mmoL/L (3.5-5.1); Sodium 139 mmol/L (136-145)
[2024-02-21 10:02] LABS: Albumin/Globulin Ratio 1.5 (1.1-1.8); Alkaline Phosphatase 57 U/L (38-126); Anion Gap 4.5 mEq/L (5-15); Bilirubin,Total 0.6 mg/dl (0.2-1.3); Calcium 8.1 mg/dl (8.4-10.2); Carbon Dioxide 31 mmol/L (22.0-30.0); Chol/HDL Ratio 7.3 (1-3.5); Cholesterol 203 mg/dl (140-200); Globulin 2.2 g/dL (1.3-3.2); Glucose 189 mg/dl (74-100); HDL Cholesterol 28 mg/dl (40-60); Total Protein,Serum 5.5 g/dl (6.3-8.2); Triglycerides 245 mg/dl (30-150); VLDL Cholesterol 49 mg/dL (0-40)
[2024-02-21 10:04] LABS: Anion Gap 5.8 mEq/L (5-15); Blood Urea Nitrogen 19 mg/dl (9-20); Calcium 8.2 mg/dl (8.4-10.2); Carbon Dioxide 30 mmol/L (22.0-30.0); Creatinine Clearance Estimated 46 mL/min (50-200); Estimated Glomerular Filt Rate 48 ml/min (>60); GFR (African American) 58 ML/MIN (>60); Glucose 187 mg/dl (74-100)
--- NOTE | 2024-02-21 10:07 | EXP.CARD.PN ---
Subjective Subjective Date: 02/21/24 Time: 09:30 Principal diagnosis: dizziness, HTN, hypothroidism Interval history: This is an 83-year-old white gentleman who presented to the emergency department with complaints of dizziness. The patient was in ventricular bigeminy while in the emergency department so the patient was kept overnight for observation. This morning he is in sinus rhythm and his ventricular ectopy has significantly improved. His blood pressure is under much better control today. He states that his dizziness has essentially resolved and he was able to get up and ambulate with no issues this morning. He states he is feeling much better. He denies any chest pain or pressure. He denies any shortness of breath or edema. He denies any fever, chills, nausea, vomiting, diarrhea, PND or orthopnea. Exam Data for Last 24 hours Vital signs and Labs for Last 24 Hours: Temp Pulse Resp BP Pulse Ox O2 Del Method 98 F 65 19 128/61 94 L Room Air 02/21/24 08:00 02/21/24 08:00 02/21/24 08:00 02/21/24 08:00 02/21/24 08:00 02/21/24 09:00 Laboratory Results - last 24 hr 02/20/24 09:01: Hemoglobin A1c 6.9 H 02/20/24 13:45: Troponin I < 0.01 02/20/24 16:18: Troponin I < 0.01 02/20/24 16:53: POC Glucose 202 H 02/21/24 05:32: POC Glucose 121 H I & O for Last 24 hours: Intake & Output 02/18/24 02/19/24 02/20/24 02/21/24 23:59 23:59 23:59 23:59 Intake Total 1360 / 1360 330 / 330 Output Total 800 / 800 Balance 1360 / 1360 -470 / -470 Weight 176 lb 3 oz 186 lb 6.4 oz Narrative: Telemetry strip is sinus rhythm. Constitutional Constitutional: no acute distress and average body habitus *Routine HEENT Exam Head: Present normocephalic and atraumatic ENT: Present mucous membranes moist *Routine Neck Exam Neck: Present supple, full ROM and normal carotid upstroke; Absent JVD, carotid bruit or lymphadenopathy *Routine Respiratory Exam Respiratory: Present CTA bilaterally, normal respiratory effort, able to speak in complete sentences and symmetric chest movement *Routine Cardiovascular Exam Cardiovascular: Present RRR, Normal S1 and Normal S2; Absent murmur or gallop *Routine Abdominal Exam Abdominal: Present soft and normoactive bowel sounds; Absent tenderness, distended or organomegaly *Routine Extremities Exam Extremities: Present full ROM, pulses intact and normal capillary refill; Absent cyanosis, clubbing or edema *Routine Skin Exam Skin: Present intact and warm; Absent erythema *Routine Neurological Exam Neurological: Present alert, oriented X3 and CN II-XII intact; Absent sensory deficit or motor deficit Routine Psychiatric Exam Psychiatric: Present normal affect Progress Note: A&P Assessment and plan (1) Dizziness: Status: Acute (2) Hypertension: Status: Acute (3) Ventricular bigeminy: Status: Acute (4) Renal insufficiency: Status: Acute (5) Diabetes mellitus: Status: Acute (6) Hypothyroidism: Status: Acute (7) Medical non-compliance: Status: Acute (8) Hyperlipidemia: Status: Acute Assessment and Plan Assessment and Plan for All Diagnoses:: Plan: 1. The patient presented to the emergency department complaints of dizziness. This is significantly proved during his hospital stay. He did have a CTA of the head and neck which ruled out a CVA. He is scheduled to undergo MRI this morning to definitively rule out a CVA. 2. The patient did have ventricular bigeminy yesterday and some bradycardia while in the field when EMS got to him. He was admitted overnight for observation on telemetry. No significant high-grade AV blocks noted in his ventricular activity/ventricular bigeminy has resolved. 3. His echocardiogram shows normal ejection fraction with mild MR and mild TR. 4. He denies any chest pain or pressure. He ruled out for an DC. No plans for invasive left cardiac catheterization at this time. 5. His blood pressure is well-controlled this morning after restarting lisinopril. 6. His LDL goal is less than 100. His LDL is 125. 7. His creatinine is stable at 1.4 today. 8. The patient does have hypothyroidism. His TSH is greater than 16. We do recommend that he go back on levothyroxine. Restart levothyroxine 75 mcg daily. 9. As long as his MRI of the brain is negative for CVA then the patient can be discharged today from a cardiac standpoint. He will need to be discharged on aspirin 81 mg daily and lisinopril 10 mg daily from a cardiac standpoint. He will also need to be discharged with a 2-week event monitor due to the ventricular bigeminy. He will need to follow-up in cardiology clinic in 1 to 2 weeks on an outpatient basis. Thank you for the opportunity to help participate in the care of this patient. All recommendations and orders are per Dr. Ballesteros.
[2024-02-21 10:09] LABS: POC Glucose,Bedside 158 (70-110)
[2024-02-21 10:13] LABS: Direct LDL Cholesterol 125.44 mg/dL (100-129)
[2024-02-21 10:24] LABS: Phosphorous 2.7 mg/dl (2.5-4.5)
--- NOTE | 2024-02-21 11:55 | EXP.DC.SUM ---
General Admission date:: 02/20/24 Discharge date: 02/21/24 HPI HPI HPI: This is an 83-year-old white gentleman with past medical history of renal insufficiency, hypothyroidism, diabetes, hyperlipidemia, hypertension, bigeminy. Patient admits to 6 months of medical noncompliance for unknown reasons. Patient presents to hospital complaining of dizziness starting at 7 AM. Patient reports left-sided falling due to ataxia with vertigo/lightheadedness symptoms noted. Patient unable to sit/stand without ataxia secondary to dizziness symptoms. Denies recent infections. Admits to dry heaves and small emesis today. Denies abdominal pain, diarrhea, constipation, fevers, chills, known sick contacts, lower extremity swelling, SOB/VELEZ. Patient found to be bradycardic upon presentation in emergency room. Patient required assistance from today to prevent fall secondary to ataxia. Patient's blood pressure elevated in emergency room with systolic over 170s. CTA head/neck in emergency room negative for acute CVA. Patient noted to be in bigeminy at time of initial ED evaluation. Hospital Course Hospital Course Hospital Course: Patient presented to hospital complaining of dizziness, vertigo, lightheadedness. Patient monitored on telemetry overnight with no arrhythmias noted. Patient had echocardiogram done 02/20 with no acute abnormalities. Patient evaluated by cardiology, with no cardiac dizziness etiologies noted. Patient had MRI/MRA brain done 02/20 without acute abnormalities. Patient evaluated by physical therapy/Occupational Therapy with no functional/ADL deficits noted. Patient's dizziness/vertigo/lightheadedness resolved during hospitalization on maintenance IV fluids. Patient subsequently discharged home and instructed to follow-up with PCP, cardiology, and neurology on outpatient basis. Patient noted to have A1c equals 6.9 during hospitalization. Patient admits to noncompliance with medication, and not taking metformin at home at baseline. Given patient's creatinine level 1.4, patient discontinued from metformin, and started on glyburide 2.5 mg p[address] daily by Dr. Ruelas at time of hospital discharge. Patient advised to follow-up with PCP for further diabetic medication titration. Exam Data for Last 24 hours Vital signs and Labs for Last 24 Hours: Temp Pulse Resp BP Pulse Ox O2 Del Method 98 F 65 19 128/61 94 L Room Air 02/21/24 08:00 02/21/24 08:00 02/21/24 08:00 02/21/24 08:00 02/21/24 08:00 02/21/24 11:00 Laboratory Results - last 24 hr 02/20/24 09:01: Hemoglobin A1c 6.9 H 02/20/24 13:45: Troponin I < 0.01 02/20/24 16:18: Troponin I < 0.01 02/20/24 16:53: POC Glucose 202 H 02/21/24 05:32: POC Glucose 121 H 02/21/24 09:28: Sodium 139 02/21/24 09:28: Sodium 139, Potassium 4.8 02/21/24 09:28: Potassium 4.5, Chloride 108 H 02/21/24 09:28: Chloride 108 H, Carbon Dioxide 30 02/21/24 09:28: Carbon Dioxide 31 H, Anion Gap 5.8 02/21/24 09:28: Anion Gap 4.5 L, BUN 19 02/21/24 09:28: BUN 18, Creatinine 1.40 H 02/21/24 09:28: Creatinine 1.50 H, Estimated Creat Clear 46 02/21/24 09:28: Estimated Creat Clear 43, Estimated GFR 48 L 02/21/24 09:28: Estimated GFR 44 L, Est GFR ( Amer) 58 L 02/21/24 09:28: Est GFR ( Amer) 54 L, Glucose 187 H 02/21/24 09:28: Glucose 189 H, Calcium 8.2 L 02/21/24 09:28: Calcium 8.1 L, Phosphorus 2.7, Total Bilirubin 0.6, AST 20 D, ALT 13, Alkaline Phosphatase 57, Total Protein 5.5 L, Albumin 3.3 L D, Globulin 2.2, Albumin/Globulin Ratio 1.5, Triglycerides 245 H, Cholesterol 203 H, LDL Cholesterol Direct 125.44, VLDL Cholesterol 49 H, HDL Cholesterol 28 L, Cholesterol/HDL Ratio 7.3 H 02/21/24 10:02: POC Glucose 158 H I & O for Last 24 hours: Intake & Output 02/18/24 02/19/24 02/20/24 02/21/24 23:59 23:59 23:59 23:59 Intake Total 1360 / 1360 330 / 330 Output Total 800 / 800 Balance 1360 / 1360 -470 / -470 Weight 79.917 kg 84.55 kg Constitutional Constitutional: no acute distress *Routine HEENT Exam Head: Present normocephalic Eye: Present EOMI ENT: Present mucous membranes moist *Routine Neck Exam Neck: Present supple and full ROM *Routine Respiratory Exam Respiratory: Present CTA bilaterally and respiratory distress *Routine Cardiovascular Exam Cardiovascular: Present RRR, Normal S1 and Normal S2 *Routine Abdominal Exam Abdominal: Present soft and normoactive bowel sounds *Routine Extremities Exam Extremities: Present full ROM, pulses intact and normal capillary refill *Routine Skin Exam Skin: Present intact and dry Results Data Completed and Pending Labs on day of discharge: Labs from last 24 hours 02/21/24 02/21/24 02/21/24 10:02 09:28 09:28 Sodium Potassium Chloride Carbon Dioxide Anion Gap BUN Creatinine Estimated Creat Clear Estimated GFR Est GFR ( Amer) Glucose 189 H POC Glucose 158 H Hemoglobin A1c Calcium 8.1 L 8.2 L Phosphorus 2.7 Total Bilirubin 0.6 AST 20 D ALT 13 Alkaline Phosphatase 57 Troponin I Total Protein 5.5 L Albumin 3.3 L D Globulin 2.2 Albumin/Globulin Ratio 1.5 Triglycerides 245 H Cholesterol 203 H LDL Cholesterol Direct 125.44 VLDL Cholesterol 49 H HDL Cholesterol 28 L Cholesterol/HDL Ratio 7.3 H 02/21/24 02/21/24 02/21/24 09:28 09:28 09:28 Sodium Potassium Chloride Carbon Dioxide Anion Gap BUN Creatinine Estimated Creat Clear 43 Estimated GFR 44 L 48 L Est GFR ( Amer) 54 L 58 L Glucose 187 H POC Glucose Hemoglobin A1c Calcium Phosphorus Total Bilirubin AST ALT Alkaline Phosphatase Troponin I Total Protein Albumin Globulin Albumin/Globulin Ratio Triglycerides Cholesterol LDL Cholesterol Direct VLDL Cholesterol HDL Cholesterol Cholesterol/HDL Ratio 02/21/24 02/21/24 02/21/24 09:28 09:28 09:28 Sodium Potassium Chloride Carbon Dioxide Anion Gap 4.5 L BUN 18 19 Creatinine 1.50 H 1.40 H Estimated Creat Clear 46 Estimated GFR Est GFR ( Amer) Glucose POC Glucose Hemoglobin A1c Calcium Phosphorus Total Bilirubin AST ALT Alkaline Phosphatase Troponin I Total Protein Albumin Globulin Albumin/Globulin Ratio Triglycerides Cholesterol LDL Cholesterol Direct VLDL Cholesterol HDL Cholesterol Cholesterol/HDL Ratio 02/21/24 02/21/24 02/21/24 09:28 09:28 09:28 Sodium Potassium 4.5 Chloride 108 H 108 H Carbon Dioxide 31 H 30 Anion Gap 5.8 BUN Creatinine Estimated Creat Clear Estimated GFR Est GFR ([facility]) Glucose POC Glucose Hemoglobin A1c Calcium Phosphorus Total Bilirubin AST ALT Alkaline Phosphatase Troponin I Total Protein Albumin Globulin Albumin/Globulin Ratio Triglycerides Cholesterol LDL Cholesterol Direct VLDL Cholesterol HDL Cholesterol Cholesterol/HDL Ratio 02/21/24 02/21/24 02/21/24 09:28 09:28 05:32 Sodium 139 139 Potassium 4.8 Chloride Carbon Dioxide Anion Gap BUN Creatinine Estimated Creat Clear Estimated GFR Est GFR ([facility]) Glucose POC Glucose 121 H Hemoglobin A1c Calcium Phosphorus Total Bilirubin AST ALT Alkaline Phosphatase Troponin I Total Protein Albumin Globulin Albumin/Globulin Ratio Triglycerides Cholesterol LDL Cholesterol Direct VLDL Cholesterol HDL Cholesterol Cholesterol/HDL Ratio 02/20/24 02/20/24 02/20/24 16:53 16:18 13:45 Sodium Potassium Chloride Carbon Dioxide Anion Gap BUN Creatinine Estimated Creat Clear Estimated GFR Est GFR ([facility]) Glucose POC Glucose 202 H Hemoglobin A1c Calcium Phosphorus Total Bilirubin AST ALT Alkaline Phosphatase Troponin I < 0.01 < 0.01 Total Protein Albumin Globulin Albumin/Globulin Ratio Triglycerides Cholesterol LDL Cholesterol Direct VLDL Cholesterol HDL Cholesterol Cholesterol/HDL Ratio 02/20/24 09:01 Sodium Potassium Chloride Carbon Dioxide Anion Gap BUN Creatinine Estimated Creat Clear Estimated GFR Est GFR ([facility]) Glucose POC Glucose Hemoglobin A1c 6.9 H Calcium Phosphorus Total Bilirubin AST ALT Alkaline Phosphatase Troponin I Total Protein Albumin Globulin Albumin/Globulin Ratio Triglycerides Cholesterol LDL Cholesterol Direct VLDL Cholesterol HDL Cholesterol Cholesterol/HDL Ratio Impressions Impressions: Date of Service: 02/20/24 Procedure(s): CA echo doppler complete Accession Number(s): [id number] Conclusion Normal biventricular systolic function. Mild RV dilation. Mild RA dilation. Mild MR, mild TR. RVSP 30-35 mmHg. 02/20/2024 CTA neck: IMPRESSION: No significant arterial abnormality. Reviewed, Interpreted and Dictated by Gelacio Smith MD Transcribed by Mila Valdez 02/20/2024 CTA head: No acute process CT head 02/20/2024: Chronic appearing findings without acute intracranial abnormalities. DS: Diagnosis Discharge Diagnosis (1) Dizziness: Status: Acute Code(s): R42 - Dizziness and giddiness (2) Hypertension: Status: Acute Code(s): I10 - Essential (primary) hypertension Qualifiers: Hypertension type: primary hypertension Qualified Code(s): I10 - Essential (primary) hypertension (3) Ventricular bigeminy: Status: Acute Code(s): I49.8 - Other specified cardiac arrhythmias (4) Renal insufficiency: Status: Acute Code(s): N28.9 - Disorder of kidney and ureter, unspecified (5) Diabetes mellitus: Status: Acute Code(s): E11.9 - Type 2 diabetes mellitus without complications Qualifiers: Diabetes mellitus complication status: without complication 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 insulin use: without senior care use Diabetes mellitus type: type 2 Qualified Code(s): E11.9 - Type 2 diabetes mellitus without complications (6) Hypothyroidism: Status: Acute Code(s): E03.9 - Hypothyroidism, unspecified Qualifiers: Hypothyroidism type: unspecified Qualified Code(s): E03.9 - Hypothyroidism, unspecified (7) Medical non-compliance: Status: Acute Code(s): Z91.199 - Patient's noncompliance with other medical treatment and regimen due to unspecified reason (8) Hyperlipidemia: Status: Acute Code(s): E78.5 - Hyperlipidemia, unspecified Qualifiers: Hyperlipidemia type: mixed hyperlipidemia Qualified Code(s): E78.2 - Mixed hyperlipidemia Meds Home Medications and Allergies Home Medications ?Medication ?Instructions ?Recorded ?Confirmed ?Type levothyroxine 75 mcg tablet 75 mcg PO DAILY 02/20/24 02/20/24 History allopurinol 300 mg tablet 300 mg PO DAILY #90 tabs 02/21/24 02/20/24 Rx aspirin 81 mg chewable tablet 81 mg PO DAILY #90 tabs 02/21/24 02/20/24 Rx cholecalciferol (vitamin D3) 50 50 mcg PO DAILY #90 caps 02/21/24 02/20/24 Rx mcg (2,000 unit) capsule (Vitamin D3) glyburide 2.5 mg tablet 2.5 mg PO DAILY #30 tabs 02/21/24 Rx lisinopril 10 mg tablet 10 mg PO DAILY #90 tabs 02/21/24 Rx omeprazole 40 mg capsule,delayed 40 mg PO DAILY #90 caps 02/21/24 02/20/24 Rx release New Prescriptions to Start Prescriptions: glyburide True Ruelas lisinopril SurajSherando Allergies Allergy/AdvReac Type Severity Reaction Status Date / Time morphine Allergy Intermediate I-ITCHING Verified 12/13/21 12:56 Discharge Plan Disposition Patient Disposition: Home, Self-Care Condition: Fair Follow up Plan Follow up with: Susannah Nuñez MD [Referring] - 1 month (syncope) Perry Lynn MD [Staff Physician] - 1 month (Evaluation for syncope. Status post MRI brain, echocardiogram, and cardiac evaluation during hospitalization 02/20/2024.) Casimiro Cobos MD [Primary Care Provider] - 02/27/24 10:15 am Prescriptions/Medication Reconciliation: New lisinopril 10 mg Tablet 10 mg PO DAILY Qty: 90 0RF glyburide 2.5 mg tablet 2.5 mg PO DAILY Qty: 30 0RF Continued levothyroxine 75 mcg Tablet 75 mcg PO DAILY omeprazole 40 mg Capsule,Delayed Release(Dr/Ec) 40 mg PO DAILY Qty: 90 0RF aspirin 81 mg Tablet,Chewable 81 mg PO DAILY Qty: 90 0RF allopurinol 300 mg Tablet 300 mg PO DAILY Qty: 90 0RF cholecalciferol (vitamin D3) [Vitamin D3] 50 mcg (2,000 unit) Capsule 50 mcg PO DAILY Qty: 90 0RF Discontinued metformin 500 mg Tablet 500 mg PO DAILY lisinopril-hydrochlorothiazide 10-12.5 mg Tablet 1 tab PO DAILY Problem Reconciliation Problems Reviewed?: Yes Patient Discharge Instructions ACTIVITY: Continue current activity DIET: continue same diet Patient Instructions: Essential Hypertension, DI for Dizziness-Nonvertigo Print Language: Vietnamese Providers Primary Care Provider: Casimiro Cobos Admit Provider: True Ruelas Attending Provider: True Ruelas
[2024-02-21] MEDS: SODIUM CHLORIDE 0.9% 10ML SYR (RAD ONLY) 10 ML IV (13:28)
[2024-02-21] MEDS: GADOTERIDOL INJ 20ML SYRINGE 17 ML IV (13:28)
[2024-02-21 14:14] LABS: Magnesium 1.8 mg/dl (1.6-2.3)
[2024-02-21 14:18] LABS: Basophils # 0.1 K/mm3 (0-0.2); Basophils % 1.5 % (0.1-2.0); Eosinophils # 0.3 K/mm3 (0.0-0.4); Eosinophils % 5.2 % (0.1-12.0); Hematocrit 45.7 % (42.0-52.0); Hemoglobin 14.3 g/dL (14.1-18.0); Lymphocytes # 1.7 K/mm3 (0.7-4.5); Lymphocytes % 28.6 % (10-50); Mean Corpuscular HGB Conc 31.3 g/dL (31.8-35.4); Mean Corpuscular Hemoglobin 31.7 pg (27.0-31.2); Mean Platelet Volume 10.2 fl (7.4-10.4); Monocytes # 0.6 K/mm3 (0.1-1.0); Neutrophils # 3.3 K/mm3 (1.8-7.8); Neutrophils % 54.6 % (37.0-80.0); Platelet Count 135 K/mm3 (142-424); Red Blood Count 4.52 M/mm3 (4.60-6.20); Red Cell Distribution Width 14.3 % (11.5-17.5); White Blood Count 6.1 K/mm3 (4.8-10.8)
--- NOTE | 2024-02-22 15:31 | CARE MANAGER ---
Contacted patient and related to hospital discharge. Patient states he is feeling better. He is aware of new medications and what medications to stop. He is also aware of follow up appointment and denies questions or concerns. KOTA Brenner
== END 2024-02-21 14:55 | disposition home or self-care (01) ==
LOC: ER 12:17 → 2ND 13:30
PROVIDERS: Nurse Practitioner Family; Admitting Provider Internal Medicine; Emergency Provider Emergency Medicine; PCP Internal Medicine Adolescent Medicine; Visit Provider Internal Medicine
DX: R42 Dizziness and giddiness (principal); N28.9 Disorder of kidney and ureter, unspecified; E11.9 Type 2 diabetes mellitus without complications; I49.8 Other specified cardiac arrhythmias; I10 Essential (primary) hypertension; E03.9 Hypothyroidism, unspecified; E78.2 Mixed hyperlipidemia; Z91.199 Patient's noncompliance with other medical treatment and regimen due to unspecified reason; Z09 Encounter for follow-up examination after completed treatment for conditions other than malignant neoplasm; Z87.891 Personal history of nicotine dependence; Z79.899 Other long term (current) drug therapy
CPT/HCPCS: 36415; 70450; 70496; 70498; 70553; 71045; 80048; 80053; 80061; 82962; 83036; 83735; 83880; 84100; 84436; 84443; 84484; 85025; 93005; 93270; 93306; 97162; 97165; 99291; A9576; G0378; J1650; J2405; J7030; J7120; Q9967

== ENCOUNTER 2024-03-21 10:59 | Outpatient (CLI) | payer MEDICARE, OTHER, SELFPAY | END 2024-03-21 23:59 | disposition home or self-care (01) | LOC: RT 11:00 | PROVIDERS: PCP Internal Medicine Adolescent Medicine; Visit Provider Physician Assistant | DX: R00.2 Palpitations (principal) | CPT/HCPCS: 93270 ==

== ENCOUNTER 2024-04-03 08:53 | Outpatient (CLI) | payer MEDICARE, OTHER, SELFPAY ==
--- NOTE | 2024-04-03 08:54 | CT_ITS ---
APPROVED REPORT Tube Builder: CLINICAL INDICATION Chest Pain TECHNIQUE Image Acquisition: A 128 slice MDCT scanner (TrekkSofta View) was used for data acquisition. A noncontrast coronary calcium scan was performed. A CT attenuation threshold of 130 Hounsfield units (HU) was used for the detection of calcium in contiguous voxels of 1 sq mm in area to be counted as individual lesions. Bolus tracking in the ascending aorta with a threshold of 180 HU was performed. Immediately afterwards, ECG synchronized cardiac CT was then performed from the cardiac base to apex using retrospective gating with ECG tube current modulation. A total of 85 mL of Isovue 370 mg/mL contrast medium was administered at 5 mL/sec followed by a saline flush using a biphasic injection protocol. A tube voltage of 120 KVp was used. The patient received the following medications prior to the cardiac CT. 0.8 mg of sublingual nitroglycerin The average heart rate at the time of acquisition was 64 bpm and regular. Image Reconstruction Transaxial images were reconstructed at 0.67 mm slide thickness. Data was reviewed interactively on an advanced workstation capable of 2 and 3-dimensional displays in all conventional reconstruction formats, including multiplanar reformations, maximum intensity projections, curved multiplanar reformations, and volume rendered reconstructions. When applicable, selected routine images describing the relevant coronary anatomy and pathology were saved and sent to PACS. Complications None Technical Quality Overall image quality was poor and non-diagnostic due to significant motion. Coronary artery opacification was adequate. Total DLP (Dose-Length Product) is 2564.1 mGy-cm. The reported value represents the total of one or more individual components during the CT acquisition of this date and at this time, and as such, the same value may appear in more than one CT report depending on the interpreting/reporting physicians. COMPARISON None FINDINGS CT Coronary Calcium Scoring LMA (Left Main Artery) = 20 LAD (Left Anterior Descending) = 325 LCX (Left Coronary Circumflex) = 107 RCA (Right Coronary Artery) = 0 Total Calcium Score = 452 using the AJ-130 method. The observed calcium score of 452 is at 45th percentile for subjects of the same age, sex, and race/ethnicity. The interpretation of the calcium heart score is based on the following continuum*: 0 = no calcified plaque detected (risk of coronary artery disease is very low ??? less than 5%) 1-10 = calcium detected in extremely minimal levels (risk of coronary diseases is still low ??? less than 10%) 11-100 = mild levels of plaque detected with certainty (mild or minimal narrowing of heart arteries is likely) 101-400 = definite,at least moderate levels of plaque detected (relatively high risk of a heart attack within 3-5 years) >401-999 = extensive levels of plaque detected (high risk of heart attack, high levels of vascular disease are present, high likelihood of at least one significant coronary narrowing) *The calcium heart score quantifies the burden of coronary calcification/plaque in the coronary arteries. The calcium heart score is not able to evaluate the presence or burden of non-calcified (i.e. soft) plaque. There is no identifiable calcification in the aortic valve, mitral annulus or mitral valve, pericardium, or myocardium. Coronary CT Angiography The coronary arterial system is right dominant. Quantitative Stenosis Grading: Left Main (LM): The left main originates normally from the left sinus of Valsalva. The LM bifurcates into the left anterior descending artery and left circumflex artery. There is mixed calcified/noncalcified plaque in the LM, with indeterminate degree of luminal stenosis. Left Anterior Descending (LAD) and Diagonal Branches: There is mixed calcified/noncalcified plaque noted in the proximal and mid LAD segments, with indeterminate degree of luminal stenosis. Left Circumflex (LCX) and Obtuse Marginals (OM): There is mixed calcified/noncalcified plaque in the proximal LCx, with indeterminant degree of luminal stenosis. Right Coronary Artery (RCA): The RCA originates normally from the right sinus of Valsalva. The RCA gives off a posterior descending artery (PDA) and posterolateral (PL) branches. Grossly, there is no obvious evidence of plaque in the RCA. Non-Coronary Cardiac Findings: Analysis of the left ventricular (LV) structure and function was performed after 3-D reconstruction of the LV from axial images, with user-corrected automatic contouring for assessment of LV volumes and user-defined reconstruction from oblique planes for measurement of 3-D cardiac structure and function. -The left ventricle systolic function is normal. -No pericardial thickening or calcification. -Central and branch pulmonary arteries in the [id number] are unremarkable. -Thoracic aorta within the visualized thoracic aortic-branches in the [id number] is unremarkable. Extracardiac Structures No significant extra-cardiac findings. Note, however, that this study is focused on the cardiac findings. IMPRESSION -Poor image quality due to significant motion. Nondiagnostic imaging of the coronary arteries. -Presence of coronary calcification with an Agatston score = 452 using the AJ-130 method. -The observed calcium score of 452 is at 45th percentile for subjects of the same age, sex, and race/ethnicity. -Multivessel atherosclerotic coronary disease with indeterminant degree of luminal stenosis due to poor image quality. Possible evidence of significant flow-limiting atherosclerosis of the coronary arteries. -CAD-RADS is indeterminate. Management recommendations per ACC/AHA guidelines*, as clinically appropriate. In the setting of nondiagnostic CCTA, further evaluation for CAD and ischemia is suggested with alternative modalities, if clinically feasible and indicated. *Recommendations: CAD RADS 0: Reassurance. Consider non-atherosclerotic causes of chest pain. CAD RADS 1: Consider non-atherosclerotic causes of chest pain. Consider preventive therapy and risk factor modification. CAD RADS 2: Consider non-atherosclerotic causes of chest pain. Consider preventive therapy and risk factor modification, particularly for patients with nonobstructive plaque in multiple segments. CAD RADS 3: Consider further functional testing. Consider symptom-guided anti-ischemic and preventive pharmacotherapy as well as risk factor modification per published guideline statements. CAD RADS 4A: Consider further functional testing or invasive coronary angiography with revascularization per published guideline statements. Consider symptom-guided anti-ischemic and preventive pharmacotherapy as well as risk factor modification per published guideline statements. CAD RADS 4B: Invasive coronary angiography recommended with revascularization per published guideline statements. Consider symptom-guided anti-ischemic and preventive pharmacotherapy as well as risk factor modification per published guideline statements. CAD RADS 5: Consider invasive angiography and/or viability assessment with revascularization per published guideline statements. Consider symptom-guided anti-ischemic and preventive pharmacotherapy as well as risk factor modification per published guideline statements. CRITICAL RESULT None COMMUNICATION Per this written report The coronary and cardiac findings of this CCTA were reviewed, reported, and signed by Neymar Ballesteros MD ([employer]) Conclusion Electronically signed by : Sadaf Ballesteros MD 04/08/2024 13:09:56
[2024-04-03 09:17] VITALS: BMI 23.3
[2024-04-03 09:19] VITALS: BP 153/88; PULSE 48; RESP 16; O2SAT 99
[2024-04-03 09:23] LABS: POC Glucose,Bedside 138 (70-110)
[2024-04-03 09:35] LABS: Chloride 104 mmol/L (98-107); Potassium 4.1 mmoL/L (3.5-5.1); Sodium 140 mmol/L (136-145)
[2024-04-03 09:38] LABS: Anion Gap 11.1 mEq/L (5-15); Blood Urea Nitrogen 19 mg/dl (9-20); Calcium 9.2 mg/dl (8.4-10.2); Carbon Dioxide 29 mmol/L (22.0-30.0); Creatinine Clearance Estimated 39 mL/min (50-200); Estimated Glomerular Filt Rate 41 ml/min (>60); GFR (African American) 50 ML/MIN (>60); Glucose 144 mg/dl (74-100)
[2024-04-03 10:03] VITALS: BP 161/98; PULSE 56; RESP 16; O2SAT 95
[2024-04-03] MEDS: NITROGLYCERIN 0.4MG SL TABLET SL (10:03)
[2024-04-03 10:06] VITALS: BP 135/93; PULSE 55; RESP 16; O2SAT 96
[2024-04-03 10:09] VITALS: BP 108/62; PULSE 58; RESP 16; O2SAT 96
[2024-04-03 10:12] VITALS: BP 103/56; PULSE 56; RESP 16; O2SAT 96
[2024-04-03 10:15] VITALS: BP 158/76; PULSE 59; RESP 16; O2SAT 98
[2024-04-03] MEDS: SODIUM CHLORIDE 0.9% 10ML SYR (RAD ONLY) 10 ML IV (10:17)
[2024-04-03] MEDS: 0.9 % SODIUM CHLORIDE 50 ML VIAL IV (10:17)
[2024-04-03] MEDS: IOPAMIDOL-370 (76%);100ML BOTTLE 85 ML IV (10:17)
[2024-04-03] MEDS: 0.9 % SODIUM CHLORIDE 1000ML 1,000 ML 999 ML IV (10:22)
== END 2024-04-03 11:06 | disposition home or self-care (01) ==
PROVIDERS: PCP Internal Medicine Adolescent Medicine; Visit Provider Physician Assistant
DX: I49.3 Ventricular premature depolarization (principal); E11.9 Type 2 diabetes mellitus without complications; E78.2 Mixed hyperlipidemia; I10 Essential (primary) hypertension; I49.8 Other specified cardiac arrhythmias; R42 Dizziness and giddiness; R06.00 Dyspnea, unspecified; R07.9 Chest pain, unspecified
CPT/HCPCS: 75574; 80048; 82962; J7030; Q9967

== ENCOUNTER 2024-06-04 10:16 | Outpatient (CLI) | payer MEDICARE, OTHER, SELFPAY ==
--- NOTE | 2024-06-04 10:19 | US_ITS ---
FINAL REPORT TECHNIQUE: Ultrasound images of the kidneys and bladder were obtained. CLINICAL HISTORY: STAGE 3 KIDNEY DISEASE COMPARISON: None FINDINGS: The right kidney measures 11.7 cm in length. There is a 3.6 cm right renal cyst. There is no hydronephrosis. The left kidney measures 11.1 cm in length. There is a probable nonobstructing stone in the mid left kidney. There is no hydronephrosis. The urinary bladder is unremarkable. The spleen is unremarkable. IMPRESSION: Right renal cyst. Probable nonobstructing left kidney stone without hydronephrosis. Reviewed, Interpreted and Dictated by Marcial Ash III, MD Transcribed by Sherin Preston Authenticated and [facility][1]
== END 2024-06-04 23:59 | disposition home or self-care (01) ==
LOC: RAD 10:17
PROVIDERS: PCP Internal Medicine Adolescent Medicine; Visit Provider Internal Medicine Adolescent Medicine
DX: N18.31 Chronic kidney disease, stage 3a (principal)
CPT/HCPCS: 76770

== ENCOUNTER 2024-09-24 12:44 | Outpatient (CLI) | payer MEDICARE, OTHER, SELFPAY ==
[2024-09-24 13:22] LABS: Basophils # 0.1 K/mm3 (0-0.2); Basophils % 1.1 % (0.1-2.0); Eosinophils # 0.3 K/mm3 (0.0-0.4); Eosinophils % 3.9 % (0.1-12.0); Hematocrit 47.3 % (42.0-52.0); Hemoglobin 15.7 g/dL (14.1-18.0); Lymphocytes # 2.5 K/mm3 (0.7-4.5); Mean Corpuscular HGB Conc 33.2 g/dL (31.8-35.4); Mean Corpuscular Hemoglobin 30.7 pg (27.0-31.2); Mean Corpuscular Volume 92.4 fl (80-94); Mean Platelet Volume 11.3 fl (7.4-10.4); Monocytes # 0.9 K/mm3 (0.1-1.0); Monocytes % 10.4 % (1.7-9.3); Neutrophils # 4.5 K/mm3 (1.8-7.8); Neutrophils % 54.4 % (37.0-80.0); Platelet Count 150 K/mm3 (142-424); Red Blood Count 5.12 M/mm3 (4.60-6.20); Red Cell Distribution Width 12.6 % (11.5-17.5); White Blood Count 8.2 K/mm3 (4.8-10.8)
[2024-09-24 13:51] LABS: Albumin Level 4.5 g/dl (3.5-5.0); Chloride 104 mmol/L (98-107); Sodium 138 mmol/L (136-145)
[2024-09-24 13:52] LABS: Potassium 4.6 mmoL/L (3.5-5.1)
[2024-09-24 13:54] LABS: Alanine Aminotransferase 19 U/L (12-78); Anion Gap 9.6 mEq/L (5-15); Aspartate Amino Transferase 26 U/L (17-59); Bilirubin,Unconjugated 0.5 mg/dL (0.0-1.1); Blood Urea Nitrogen 30 mg/dl (9-20); Carbon Dioxide 29 mmol/L (22.0-30.0); Estimated Glomerular Filt Rate 38 ml/min (>60); GFR (African American) 47 ML/MIN (>60); Total Protein,Serum 6.5 g/dl (6.3-8.2)
[2024-09-24 13:55] LABS: Alkaline Phosphatase 80 U/L (38-126); Bilirubin,Direct 0.1 mg/dl (0.0-0.4); Bilirubin,Indirect 0.5 mg/dL (0.0-0.9); Bilirubin,Total 0.6 mg/dl (0.2-1.3); Calcium 9.6 mg/dl (8.4-10.2); Chol/HDL Ratio 6.8 (1-3.5); Cholesterol 252 mg/dl (140-200); Glucose 224 mg/dl (74-100); HDL Cholesterol 37 mg/dl (40-60); Magnesium 1.8 mg/dl (1.6-2.3); Triglycerides 263 mg/dl (30-150); VLDL Cholesterol 53 mg/dL (0-40)
[2024-09-24 14:08] LABS: Direct LDL Cholesterol 154.71 mg/dL (100-129)
[2024-09-24 14:14] LABS: Free T4 (Free Thyroxine) 1.19 ng/dl (0.78-2.19)
[2024-09-24 14:27] LABS: Thyroid Stimulating Hormone 6.98 uIU/mL (0.465-4.68)
== END 2024-09-24 23:59 | disposition home or self-care (01) ==
LOC: LAB 12:46
PROVIDERS: PCP Nurse Practitioner Family; Visit Provider Physician Assistant
DX: R93.1 Abnormal findings on diagnostic imaging of heart and coronary circulation (principal); I47.10 Supraventricular tachycardia, unspecified; R06.09 Other forms of dyspnea; I49.3 Ventricular premature depolarization; E11.9 Type 2 diabetes mellitus without complications; E78.2 Mixed hyperlipidemia; I10 Essential (primary) hypertension; I49.8 Other specified cardiac arrhythmias; R42 Dizziness and giddiness
CPT/HCPCS: 36415; 80048; 80061; 80076; 83735; 84439; 84443; 85025

== ENCOUNTER 2024-09-25 13:11 | Observation (INO) | payer MEDICARE, OTHER, SELFPAY ==
[2024-09-25] VITALS (20 sets, daily range): BP systolic 112–150; BP diastolic 64–97; PULSE 44–73; RESP 14–20; TEMP 36.7–36.9; O2SAT 93–100; BMI 24.6
--- NOTE | 2024-09-25 07:17 | IR_ITS ---
APPROVED REPORT Patient Location: Outpatient PROCEDURES Left heart catheterization Left ventriculogram Selective coronary angiogram Drug-eluting stent deployment to the ostial proximal mid distal left main artery Drug-eluting stent deployment to the proximal and mid LAD INDICATION Coronary artery disease, Accelerated angina pectoris, Abnormal CCTA Informed consent was obtained prior to the procedure. COMPLICATIONS NONE Estimated Blood Loss: LESS THAN 10 ML TECHNIQUE One percent lidocaine used to anesthetize the right anterior aspect of the wrist. The right radial artery was accessed via the Seldinger technique. A 6 Portuguese sheath was placed in the right radial artery. 2.5 mg of Verapamil, 800 mcg of nitroglycerin, 1mg Lidocaine and 5000 U Heparin were given through the arterial sheath. The papa catheter was also used to perform left heart catheterization, left ventriculogram and selective coronary angiogram. At the end the diagnostic angiogram therapeutic Was administered giving a therapeutic ACT and the guide catheter was placed in left main artery followed by Choice PT extra-support wire placed in the circumflex artery and 1 in the LAD. A 2.5 x 20 mm noncompliant balloon was deployed at 20 stevie throughout the mid and proximal LAD to predilate the calcified severe stenoses. A 2.75 x 38 mm Omar frontier stent was deployed at 16 stevie in the proximal to mid LAD reducing the critical stenosis. An additional 4 mm x 30 mm Omar frontier stent was placed in the left coronary cusp extending into the ostium throughout the left main artery and into the proximal LAD overlapping the first stent. This was deployed at 16 stevie. A 4.5 x 12 mm balloon was then deployed in the ostial proximal and mid segment of the left main artery at 20 stevie. A 3.5 x 12 mm noncompliant balloon was deployed at 24 stevie throughout the proximal LAD to post dilate. Excellent angiograph results were obtained with LUIS-3 flow being present before and after the procedure and both the left main artery and the LAD. At the end the procedure the apparatus was removed the sheath was removed and hemostasis was achieved using TR banding patient was transferred to the postop putting in stable condition ANGIOGRAPHIC RESULTS The left main artery Has an ostial eccentric 40% stenosis with a distal 30 to 40% stenosis The left anterior descending artery Large with proximal calcified complex 80 to 90% stenoses which extend into the mid LAD The circumflex artery Large and dominant with an ostial 40% calcified stenosis in the mid vessel 30% stenosis The right coronary artery Nondominant small caliber with diffuse 30% calcified stenoses The KATZ ventriculogram reveals Preserved at 55% The left ventricular end-diastolic pressure 15 mmHg IMPRESSION Severe critical disease as described above Successful stenting the ostial proximal mid distal left main artery severe disease reduced to 0% with 1 drug-eluting stent Successful stenting the ostial proximal mid LAD severe disease reduced to 0% with 2 contiguous drug-eluting stents Preserved ejection fraction Normal LVEDP PLAN 1. Plavix and aspirin 2. Patient requires admission due to chronic renal insufficiency complex nature of the intervention as well as to reduce contrast nephropathy by giving IV fluids 3. Chemistry panel and CBC in the morning 4. LDL less than 55 achieved with high intensity statin 5. Avoidance of tobacco products 6. Risk factor modification 7. Cardiac rehabilitation Electronically signed by : Perry Lynn MD 09/25/2024 15:24:39
[2024-09-25] MEDS: HEPARIN 1,000 UNITS/ML 10ML VIAL (CATH LAB) 10000 UNIT IV (12:06)
[2024-09-25] MEDS: NITROGLYCERIN 800MCG/8ML SYR (CATH LAB) 800 MCG IA (12:06)
[2024-09-25] MEDS: VERAPAMIL 2.5MG/ML 2ML VIAL 2.5 MG IV (12:06)
[2024-09-25] MEDS: LIDOCAINE 1% 10ML MDV 20 ML IJ (12:06)
[2024-09-25] MEDS: 0.9 % SODIUM CHLORIDE 500 ML 25 ML IV (12:07)
[2024-09-25] MEDS: diphenhydrAMINE 50MG/ML VIAL 50 MG IV (12:07)
[2024-09-25] MEDS: HEPARIN 1,000 UNITS/500ML NS (CATH LAB) 3000 UNIT IV (12:07)
[2024-09-25] MEDS: MIDAZOLAM HCL 1MG/ML 5ML VIAL 1 MG IV (12:51)
[2024-09-25] MEDS: FENTANYL 100MCG/2ML VIAL 50 MCG IV (12:52)
[2024-09-25] MEDS: CLOPIDOGREL 300MG TABLET 600 MG PO (12:54)
--- NOTE | 2024-09-25 14:15 | HMH.PHAINT1 ---
Pharmacy Intervention Comments: home medication list verified using list from cardiology office
[2024-09-25] MEDS: IOPAMIDOL-370 (76%);100ML BOTTLE 120 ML IV (14:50)
[2024-09-25 15:00] LABS: CATHL Activated Clotting Time 315 SEC (74-125)
--- NOTE | 2024-09-25 17:10 | P.HP_ITS ---
History of Present Illness *Reason for visit:: LHC *History of present illness: Layo Bergeron is a 83-year-old male with a medical history significant for type 2 diabetes, hypertension, hyperlipidemia, hypothyroidism, former smoker, GERD who presented for an outpatient elective LHC and received 3 stents to LAD and left main artery. However, given his CKD stage III Dr. Lynn discussed admission and monitoring renal function post PCI to which I agreed. On my evaluation of patient, he was sitting comfortably in bed without acute concerns. Denies chest pain, shortness of breath. Extensively discussed LHC and risk factors to CAD and CKD today with family at bedside. Patient will start making lifestyle m odifications. [facility] Disclaimer: The information contained in this section may have been updated after the patient was seen, as this information can be updated by other users. Medical History Renal insufficiency Medical non-compliance Hypothyroidism Diabetes mellitus Hyperlipidemia Hypertension Ventricular bigeminy Family History Other No significant family history Social History Smoking Status: Former smoker alcohol intake: never substance use type: denies use current occupational status: retired Travel in the last 8 weeks: None household members: spouse housing: house current occupational exposures/hazards: No caffeine: Yes Have you lived/traveled outside [place] in past 30 days?: No Contact w/someone who lives/traveled outside [place] past 30 days?: No Exposure to someone with infectious disease in past 14 days?: No Do you have a fever (greater than 100.4 F or 38 C)?: No Have you tested positive for COVID-19: No Exposed to someone with COVID-19 in past 14 days?: No Do you have a sore throat?: No Do you have a cough?: No Do you have any weakness?: No Do you have any diarrhea?: No Are you experiencing any unusual bleeding?: No Do you have any muscle aches/pain?: No Do you have any abdominal pain?: No Are you experiencing loss of taste or smell?: No Other Medical History Have you received the Flu Vaccine for this season: No Have you received the Pneumonia Vaccine: No Meds Home Medications and Allergies Home Medications ?Medication ?Instructions ?Recorded ?Confirmed ?Type levothyroxine 75 mcg tablet 75 mcg PO DAILY 02/20/24 09/25/24 History aspirin 81 mg chewable tablet 81 mg PO DAILY #90 tabs 02/21/24 09/25/24 Rx cholecalciferol (vitamin D3) 50 50 mcg PO DAILY #90 caps 02/21/24 09/25/24 Rx mcg (2,000 unit) capsule (Vitamin D3) glyburide 2.5 mg tablet 2.5 mg PO DAILY #30 tabs 02/21/24 09/25/24 Rx lisinopril 10 mg tablet 10 mg PO DAILY #90 tabs 02/21/24 09/25/24 Rx omeprazole 40 mg capsule,delayed 40 mg PO DAILY #90 caps 02/21/24 09/25/24 Rx release bisoprolol fumarate 5 mg tablet 5 mg PO DAILY #30 tabs 08/12/24 09/25/24 Rx amlodipine 5 mg tablet (Norvasc) 5 mg PO DAILY #30 tabs 09/17/24 09/25/24 Rx clopidogrel 75 mg tablet (Plavix) 75 mg PO DAILY #30 tabs 09/25/24 Rx New Prescriptions to Start Prescriptions: clopidogrel [Plavix] Perry Lynn Allergies Allergy/AdvReac Type Severity Reaction Status Date / Time morphine Allergy Intermediate I-ITCHING Verified 09/17/24 10:03 Exam Data for Last 24 hours Vital signs and Labs for Last 24 Hours: Temp Pulse Resp BP Pulse Ox O2 Del Method 98.4 F 60 17 123/71 96 Room Air 09/25/24 13:02 09/25/24 16:00 09/25/24 13:45 09/25/24 13:45 09/25/24 13:45 09/25/24 13:45 Laboratory Results - last 24 hr 09/25/24 12:34: Activated Clotting Time 315 H* I & O for Last 24 hours: Intake & Output 09/22/24 09/23/24 09/24/24 09/25/24 23:59 23:59 23:59 23:59 Weight 84.822 kg Constitutional Constitutional: no acute distress *Routine HEENT Exam Head: Present normocephalic Eye: Present EOMI and PERRL ENT: Present mucous membranes moist *Routine Neck Exam Neck: Present supple; Absent lymphadenopathy *Routine Respiratory Exam Respiratory: Present CTA bilaterally *Routine Cardiovascular Exam Cardiovascular: Present RRR *Routine Abdominal Exam Abdominal: Present soft and normoactive bowel sounds; Absent tenderness *Routine Rectal Exam Rectal:: deferred *Routine Genitalia Exam Genitalia:: deferred *Routine Extremities Exam Extremities: Present edema; Absent cyanosis or clubbing Comments: Left leg pitting edema *Routine Skin Exam Skin: Present warm; Absent rash *Routine Neurological Exam Neurological: Present alert and oriented X3 Assessment and Plan *Assessment and plan (1) Abnormal findings on diagnostic imaging of heart and coronary circulation: Status: Acute Category: Medical Code(s): R93.1 - Abnormal findings on diagnostic imaging of heart and coronary circulation Plan Layo Reyes is a 83-year-old male with a medical history significant for type 2 diabetes, hypertension, hyperlipidemia, hypothyroidism, former smoker, GERD who presented for an outpatient elective LHC and received 3 stents to LAD and left main artery. However, given his CKD stage III Dr. Lynn discussed admission and monitoring renal function post PCI to which I agreed. On my evaluation of patient, he was sitting comfortably in bed without acute concerns. Denies chest pain, shortness of breath. Extensively discussed LHC and risk factors to CAD and CKD today with family at bedside. Patient will start making lifestyle modifications. #CAD #CKD stage III #Hyperlipidemia #Hypertension ? S/p PCI 09/25/2024 with 1 stent to left main artery, 2 stents to LAD. LVEF normal. Patient tolerated procedure well. ? Aspirin 81 mg, Plavix 75 mg, bisoprolol 5 mg, atorvastatin 40 mg. ? Continue home lisinopril 10 mg, hold amlodipine for now. ? Cardiology consulted, pending further recommendations. ? Hemoglobin A1c 6.9%, LDL 154, TSH 6.98, free T4 normal. Former smoker. ? Continuous cardiac telemetry. ? LR at 50 mL/h. Creatinine 1.7, GFR 38. At baseline. #Type 2 diabetes ? A1c 6.9 last year, follow-up repeat A1c. ? LDSSI, ACHS glucose checks. #Hypothyroidism ? TSH elevated 6.98, free T4 normal per ? Increased levothyroxine from 75 to 88 mcg. #GERD ? Continue home PPI. Full code DVT prophylaxis: Lovenox 40 mg
[2024-09-25] MEDS: LACTATED RINGERS 1000ML 1,000 ML 50 ML IV (17:43)
[2024-09-25 19:58] LABS: POC Glucose,Bedside 133 (70-110)
[2024-09-25] MEDS: PANTOPRAZOLE 40MG TABLET 40 MG PO (20:15)
[2024-09-25] MEDS: ATORVASTATIN 40MG TABLET 40 MG PO (20:15)
[2024-09-25 22:25] LABS: Basophils # 0.1 K/mm3 (0-0.2); Basophils % 0.8 % (0.1-2.0); Eosinophils # 0.3 K/mm3 (0.0-0.4); Eosinophils % 4.4 % (0.1-12.0); Hematocrit 41.3 % (42.0-52.0); Hemoglobin 14.1 g/dL (14.1-18.0); Lymphocytes # 2.4 K/mm3 (0.7-4.5); Lymphocytes % 32.7 % (10-50); Mean Corpuscular HGB Conc 34.1 g/dL (31.8-35.4); Mean Corpuscular Hemoglobin 31.2 pg (27.0-31.2); Mean Corpuscular Volume 91.4 fl (80-94); Mean Platelet Volume 11.2 fl (7.4-10.4); Monocytes # 0.8 K/mm3 (0.1-1.0); Monocytes % 11.3 % (1.7-9.3); Neutrophils # 3.7 K/mm3 (1.8-7.8); Neutrophils % 49.7 % (37.0-80.0); Platelet Count 131 K/mm3 (142-424); Red Blood Count 4.52 M/mm3 (4.60-6.20); Red Cell Distribution Width 12.6 % (11.5-17.5); White Blood Count 7.4 K/mm3 (4.8-10.8)
[2024-09-25 22:26] LABS: Chloride 104 mmol/L (98-107); Sodium 139 mmol/L (136-145)
[2024-09-25 22:29] LABS: Blood Urea Nitrogen 24 mg/dl (9-20); Carbon Dioxide 29 mmol/L (22.0-30.0); Creatinine Clearance Estimated 38 mL/min (50-200); Estimated Glomerular Filt Rate 38 ml/min (>60); GFR (African American) 47 ML/MIN (>60)
[2024-09-25 22:30] LABS: Calcium 8.7 mg/dl (8.4-10.2); Glucose 96 mg/dl (74-100)
[2024-09-26] VITALS: BP 150/72; PULSE 53; PULSE 60; RESP 17; TEMP 36.4; O2SAT 96
--- NOTE | 2024-09-26 01:44 | PC.NURSE ---
Took over care for patient at 0100, patient resting bed with no complaints.
[2024-09-26 04:00] VITALS: BP 118/71; PULSE 64; RESP 16; TEMP 36.4; O2SAT 97; BMI 22.2
[2024-09-26 04:03] VITALS: PULSE 80
--- NOTE | 2024-09-26 04:38 | PC.NURSE ---
Alert and oriented. No complaints of pain. Ambulates to the restroom with standby assist. Bed alarm on. Room air. Right radial site, dressing CDI. NSR on tele. Call light in reach.
--- NOTE | 2024-09-26 05:54 | PC.NURSE ---
Patient dressing came off Right radial site, went to replace with tegaderm and 2x2, patient stated he didnt like it because it is sticky , patient ask this RN to place coban around instead of tegaderm, educated patient need for dressing to be on for full 24 hours due to complications from band coming off delaying, and need for clear tegaderm to be able to assess the site while getting the pressure from the tegaderm. Patient stated to go ahead . Proceeded to dress site, put tegaderm on different way to prevent pulling of hair, which is the patients concern.
--- NOTE | 2024-09-26 06:01 | PC.NURSE ---
[facility] notified this RN of patient refusing lab draw. Notified Dennis Parham APRN.
[2024-09-26 08:00] VITALS: BP 124/54; PULSE 51; PULSE 90; RESP 21; TEMP 36.9; O2SAT 98
[2024-09-26] MEDS: LISINOPRIL 10MG TABLET 10 MG PO (08:35)
[2024-09-26] MEDS: BISOPROLOL 5MG TABLET 5 MG PO (08:35)
[2024-09-26] MEDS: ASPIRIN EC 81MG TABLET 81 MG PO (08:37)
[2024-09-26] MEDS: LEVOTHYROXINE 88MCG (0.088MG) TAB 88 MCG PO (08:41)
[2024-09-26] MEDS: CLOPIDOGREL 75MG TAB 75 MG PO (10:31)
[2024-09-26 12:00] VITALS: BP 135/84; PULSE 58; RESP 19; O2SAT 97
--- NOTE | 2024-09-26 12:21 | EXP.DC.SUM ---
General Admission date:: 09/25/24 HPI HPI HPI: Layo Bergeron is a 83-year-old male with a medical history significant for type 2 diabetes, hypertension, hyperlipidemia, hypothyroidism, former smoker, GERD who presented for an outpatient elective LHC and received 3 stents to LAD and left main artery. However, given his CKD stage III Dr. Lynn discussed admission and monitoring renal function post PCI to which I agreed. On my evaluation of patient, he was sitting comfortably in bed without acute concerns. Denies chest pain, shortness of breath. Extensively discussed LHC and risk factors to CAD and CKD today with family at bedside. Patient will start making lifestyle modifications. Hospital Course Hospital Course Hospital Course: Layo Reyes is a 83-year-old male with a medical history significant for type 2 diabetes, hypertension, hyperlipidemia, hypothyroidism, former smoker, GERD who presented for an outpatient elective LHC and received 3 stents to LAD and left main artery. However, given his CKD stage III Dr. Lynn discussed admission and monitoring renal function post PCI to which I agreed. On my evaluation of patient, he was sitting comfortably in bed without acute concerns. Denies chest pain, shortness of breath. Extensively discussed LHC and risk factors to CAD and CKD today with family at bedside. Patient will start making lifestyle modifications. #CAD #CKD stage III #Hyperlipidemia #Hypertension ? S/p PCI 09/25/2024 with 1 stent to left main artery, 2 stents to LAD. LVEF normal. Patient tolerated procedure well. ? Aspirin 81 mg, Plavix 75 mg, bisoprolol 5 mg, atorvastatin 40 mg. ? Continue home lisinopril, amlodipine. ? Hemoglobin A1c 6.9%, LDL 154, TSH 6.98, free T4 normal. Former smoker. ? Extensively discussed risk factors including diabetes, hyperlipidemia and educated on nutritional changes. Patient and family at bedside understood. ? Renal functions remained stable, creatinine 1.7, GFR 38. At baseline. #Type 2 diabetes ? A1c 6.9 last year, follow-up repeat A1c. ? LDSSI, ACHS glucose checks. ? Continue home regimen. #Hypothyroidism ? Continue home levothyroxine 75 mcg. #GERD ? Continue home PPI. Total time spent on discharge: 32 minutes on chart review, counseling, documentation, and direct care with patient. Exam Data for Last 24 hours Vital signs and Labs for Last 24 Hours: Temp Pulse Resp BP Pulse Ox O2 Del Method 98.4 F 51 L 21 124/54 L 98 Room Air 09/26/24 08:00 09/26/24 08:00 09/26/24 08:00 09/26/24 08:00 09/26/24 08:00 09/26/24 09:00 Laboratory Results - last 24 hr 09/25/24 12:34: Activated Clotting Time 315 H* 09/25/24 19:47: POC Glucose 133 H 09/25/24 21:44: WBC 7.4, RBC 4.52 L, Hgb 14.1, Hct 41.3 L, MCV 91.4, MCH 31.2, MCHC 34.1, RDW 12.6, Plt Count 131 L, MPV 11.2 H, Neut % (Auto) 49.7, Lymph % (Auto) 32.7, [place] % (Auto) 11.3 H, Eos % (Auto) 4.4, Baso % (Auto) 0.8, Neut # (Auto) 3.7, Lymph # (Auto) 2.4, [place] # (Auto) 0.8, Eos # (Auto) 0.3, Baso # (Auto) 0.1, Sodium 139, Potassium 4.0, Chloride 104, Carbon Dioxide 29, Anion Gap 10.0, BUN 24 H, Creatinine 1.70 H, Estimated Creat Clear 38, Estimated GFR 38 L, Est GFR ( Amer) 47 L, Glucose 96, Calcium 8.7 I & O for Last 24 hours: Intake & Output 09/23/24 09/24/24 09/25/24 09/26/24 23:59 23:59 23:59 23:59 Intake Total 580 / 580 360 / 360 Output Total 600 / 600 0 / 0 Balance -20 / -20 360 / 360 Weight 84.822 kg 76.067 kg Constitutional Constitutional: no acute distress *Routine HEENT Exam Head: Present normocephalic Eye: Present EOMI and PERRL ENT: Present mucous membranes moist *Routine Neck Exam Neck: Present supple; Absent lymphadenopathy *Routine Respiratory Exam Respiratory: Present CTA bilaterally *Routine Cardiovascular Exam Cardiovascular: Present RRR *Routine Abdominal Exam Abdominal: Present soft and normoactive bowel sounds; Absent tenderness *Routine Extremities Exam Extremities: Present edema; Absent cyanosis or clubbing *Routine Skin Exam Skin: Present warm; Absent rash *Routine Neurological Exam Neurological: Present alert and oriented X3 Results Data Completed and Pending Labs on day of discharge: Labs from last 24 hours 09/25/24 09/25/24 09/25/24 21:44 19:47 12:34 WBC 7.4 RBC 4.52 L Hgb 14.1 Hct 41.3 L MCV 91.4 MCH 31.2 MCHC 34.1 RDW 12.6 Plt Count 131 L MPV 11.2 H Neut % (Auto) 49.7 Lymph % (Auto) 32.7 [place] % (Auto) 11.3 H Eos % (Auto) 4.4 Baso % (Auto) 0.8 Neut # (Auto) 3.7 Lymph # (Auto) 2.4 [place] # (Auto) 0.8 Eos # (Auto) 0.3 Baso # (Auto) 0.1 Activated Clotting Time 315 H* Sodium 139 Potassium 4.0 Chloride 104 Carbon Dioxide 29 Anion Gap 10.0 BUN 24 H Creatinine 1.70 H Estimated Creat Clear 38 Estimated GFR 38 L Est GFR ( Amer) 47 L Glucose 96 POC Glucose 133 H Calcium 8.7 DS: Diagnosis Discharge Diagnosis (1) Abnormal findings on diagnostic imaging of heart and coronary circulation: Status: Acute Code(s): R93.1 - Abnormal findings on diagnostic imaging of heart and coronary circulation Meds Home Medications and Allergies Home Medications ?Medication ?Instructions ?Recorded ?Confirmed ?Type levothyroxine 75 mcg tablet 75 mcg PO DAILY 02/20/24 09/25/24 History cholecalciferol (vitamin D3) 50 50 mcg PO DAILY #90 caps 02/21/24 09/25/24 Rx mcg (2,000 unit) capsule (Vitamin D3) glyburide 2.5 mg tablet 2.5 mg PO DAILY #30 tabs 02/21/24 09/25/24 Rx lisinopril 10 mg tablet 10 mg PO DAILY #90 tabs 02/21/24 09/25/24 Rx omeprazole 40 mg capsule,delayed 40 mg PO DAILY #90 caps 02/21/24 09/25/24 Rx release bisoprolol fumarate 5 mg tablet 5 mg PO DAILY #30 tabs 08/12/24 09/25/24 Rx amlodipine 5 mg tablet (Norvasc) 5 mg PO DAILY #30 tabs 09/17/24 09/25/24 Rx clopidogrel 75 mg tablet (Plavix) 75 mg PO DAILY #30 tabs 09/25/24 Rx aspirin 81 mg chewable tablet 81 mg PO DAILY #90 tabs 09/26/24 Rx atorvastatin 40 mg tablet 40 mg PO HS 30 days #30 tabs 09/26/24 Rx New Prescriptions to Start Prescriptions: aspirin Werner Cox atorvastatin Werner Cox clopidogrel [Plavix] Perry Lynn Allergies Allergy/AdvReac Type Severity Reaction Status Date / Time morphine Allergy Intermediate I-ITCHING Verified 09/17/24 10:03 Discharge Plan Disposition Patient Disposition: Home, Self-Care Condition: Fair Follow up Plan Follow up with: Perry Lynn MD [Staff Physician] - 10/02/24 9:30 am Prescriptions/Medication Reconciliation: New clopidogrel [Plavix] 75 mg Tablet 75 mg PO DAILY Qty: 30 6RF atorvastatin 40 mg Tablet 40 mg PO HS 30 Days Qty: 30 0RF Continued amlodipine [Norvasc] 5 mg tablet 5 mg PO DAILY Qty: 30 2RF bisoprolol fumarate 5 mg tablet 5 mg PO DAILY Qty: 30 5RF levothyroxine 75 mcg Tablet 75 mcg PO DAILY lisinopril 10 mg Tablet 10 mg PO DAILY Qty: 90 0RF omeprazole 40 mg Capsule,Delayed Release(Dr/Ec) 40 mg PO DAILY Qty: 90 0RF cholecalciferol (vitamin D3) [Vitamin D3] 50 mcg (2,000 unit) Capsule 50 mcg PO DAILY Qty: 90 0RF glyburide 2.5 mg tablet 2.5 mg PO DAILY Qty: 30 0RF aspirin 81 mg Tablet,Chewable 81 mg PO DAILY Qty: 90 0RF Problem Reconciliation Problems Reviewed?: Yes Patient Discharge Instructions Patient Instructions: DI for Cardiac Catheterization, DI for Coronary Stenting, DI for Surgical Site Infection, DI for Moderate Sedation Print Language: Nigerian Providers Primary Care Provider: Casimiro Cobos Admit Provider: Werner Cox Attending Provider: Werner Cox
--- NOTE | 2024-09-26 13:35 | PC.NURSE ---
Student nurse, Samanta Fuller provided care to pt under my supervision.
--- NOTE | 2024-09-26 15:25 | DIET.NUTRFU ---
RD saw pateint prior to discharge to review cardiac and diabetic diet education, provided handouts. does most of the cooking but he seemed resistant to change his meal plans. He consumes buttermilk daily, butter and 3-4 fried eggs. provided contact information for further follow-up
--- NOTE | 2024-09-27 10:21 | SW/DCPLANNER ---
Spoke with patient on the phone. Patient stated that he is doing well and glad that this is all over. Patient stated that he is aware of his upcoming appointments. Patient stated that he was able to picker tender his new medicine from [facility]. Patient stated that he has no concerns or questions at this time. Divina Bruno
== END 2024-09-26 13:19 | disposition home or self-care (01) ==
LOC: 2ND 13:12
PROVIDERS: Internal Medicine; Admitting Provider Student in an Organized Health Care Education/Training Program; PCP Internal Medicine Adolescent Medicine; Visit Provider Student in an Organized Health Care Education/Training Program
DX: I25.118 Atherosclerotic heart disease of native coronary artery with other forms of angina pectoris (principal); I77.1 Stricture of artery; R93.1 Abnormal findings on diagnostic imaging of heart and coronary circulation; I47.10 Supraventricular tachycardia, unspecified; I49.3 Ventricular premature depolarization; E11.22 Type 2 diabetes mellitus with diabetic chronic kidney disease; E78.2 Mixed hyperlipidemia; I12.9 Hypertensive chronic kidney disease with stage 1 through stage 4 chronic kidney disease, or unspecified chronic kidney disease; Z87.891 Personal history of nicotine dependence; Z79.84 Long term (current) use of oral hypoglycemic drugs; N18.30 Chronic kidney disease, stage 3 unspecified; E03.9 Hypothyroidism, unspecified; Z79.01 Long term (current) use of anticoagulants; Z79.82 Long term (current) use of aspirin; Z79.899 Other long term (current) drug therapy; Z88.5 Allergy status to narcotic agent
CPT/HCPCS: 80048; 82962; 85025; 85347; 92928; 93458; 99152; 99153; C1725; C1760; C1769; C1874; C9600; G0378; J1200; J1644; J3010; J7120; Q9967

== ENCOUNTER 2024-09-28 09:00 | Outpatient (CLI) | payer MEDICARE, OTHER, SELFPAY ==
[2024-09-28 09:32] LABS: Anion Gap 14.4 mEq/L (5-15); Blood Urea Nitrogen 22 mg/dl (9-20); Carbon Dioxide 28 mmol/L (22.0-30.0); Chloride 100 mmol/L (98-107); Estimated Glomerular Filt Rate 38 ml/min (>60); GFR (African American) 47 ML/MIN (>60); Glucose 218 mg/dl (74-100); Potassium 4.4 mmoL/L (3.5-5.1); Sodium 138 mmol/L (136-145)
[2024-09-28 10:23] LABS: Basophils # 0.1 K/mm3 (0-0.2); Basophils % 1.3 % (0.1-2.0); Eosinophils # 0.4 K/mm3 (0.0-0.4); Eosinophils % 4.8 % (0.1-12.0); Hematocrit 45.2 % (42.0-52.0); Hemoglobin 15.3 g/dL (14.1-18.0); Lymphocytes # 2.3 K/mm3 (0.7-4.5); Mean Corpuscular HGB Conc 33.8 g/dL (31.8-35.4); Mean Corpuscular Hemoglobin 31.2 pg (27.0-31.2); Mean Corpuscular Volume 92.1 fl (80-94); Mean Platelet Volume 11.6 fl (7.4-10.4); Monocytes % 11.3 % (1.7-9.3); Neutrophils # 4.7 K/mm3 (1.8-7.8); Neutrophils % 55.2 % (37.0-80.0); Platelet Count 150 K/mm3 (142-424); Red Blood Count 4.91 M/mm3 (4.60-6.20); Red Cell Distribution Width 12.5 % (11.5-17.5); White Blood Count 8.5 K/mm3 (4.8-10.8)
== END 2024-09-28 23:59 | disposition home or self-care (01) ==
LOC: LAB 09:02
PROVIDERS: PCP Internal Medicine Adolescent Medicine; Visit Provider Physician Assistant
DX: N18.32 Chronic kidney disease, stage 3b (principal); E11.9 Type 2 diabetes mellitus without complications; I25.10 Atherosclerotic heart disease of native coronary artery without angina pectoris
CPT/HCPCS: 36415; 80048; 85025

== ENCOUNTER 2025-05-19 12:58 | Outpatient (CLI) | payer MEDICARE, SELFPAY ==
--- NOTE | 2025-05-19 13:03 | XR_ITS ---
FINAL REPORT TECHNIQUE: Chest PA & Lateral CLINICAL HISTORY: ORTHOPNEA, CAD, PERIPHERAL EDEMA, RT-SIDE CHEST PAIN states unable to lay flat COMPARISON: 02/20/2024 FINDINGS: 2 views of the chest were performed. The heart size is normal. The mediastinum is within normal limits. There is no acute cardiopulmonary process. There are no pleural effusions. There is no pneumothorax. The bony thorax appears intact. IMPRESSION: No acute cardiopulmonary process. Reviewed, Interpreted and Dictated by Gelacio Smith MD Transcribed by Chayo Ross Authenticated and [facility]
== END 2025-05-19 23:59 | disposition home or self-care (01) ==
LOC: RAD 13:00
PROVIDERS: PCP Nurse Practitioner Family; Visit Provider Nurse Practitioner Family
DX: I25.10 Atherosclerotic heart disease of native coronary artery without angina pectoris (principal)
CPT/HCPCS: 71046

== ENCOUNTER 2025-05-21 10:18 | Inpatient (IN) | payer MEDICARE, SELFPAY ==
[2025-05-21] VITALS (25 sets, daily range): BP systolic 118–158; BP diastolic 60–84; PULSE 53–75; RESP 13–20; TEMP 36.4–37.1; O2SAT 92–99; BMI 23.7
--- NOTE | 2025-05-21 10:20 | ECG_ITS ---
APPROVED REPORT Exam: Resting ECG HR:74 bpm ECG Measurements Heart Rate 74 AXES [place] 186 P 93 QRSd 92 QRS 25 QT 432 T -2 QTc 460 Conclusion SINUS RHYTHM WITH FREQUENT VENTRICULAR PREMATURE COMPLEXES MODERATE ST DEPRESSION [0.05+ mV ST DEPRESSION] ABNORMAL ECG INTERPRETATION BASED ON A DEFAULT AGE OF 40 YEARS UNCONFIRMED REPORT Normal sinus rhythm with frequent PVCs. Mild ST depression in lead V3 and V4. Mild ST elevation in aVL. Electronically signed by : NADYA GARNER, 05/22/2025 14:27:29
--- NOTE | 2025-05-21 10:40 | ED_ITS ---
<Statement entered by Asim Herbert MD - 05/21/25 20:11> I was consulted by the DELFIN, and we discussed the complexity of the problems being addressed. I approve the treatment and management plan for this patient's care in the emergency department, thus performing a substantive portion of the medical decision making. Both the patient's EKGs were interpreted by me personally. Patient has frequent PVCs as well as ST depressions in leads V3 and V4 on initial EKG without reciprocal changes. No STEMI based on this EKG. Repeat EKG shows further ST depressions in leads V3, V4, V5 and mild depressions in V6 with possible very mild ST elevation in aVL. There is likely some mild ST depression in lead III and aVF as well. Asim Herbert MD Discharge Plan Disposition Patient Disposition: Admitted Prescriptions Prescriptions: No Action levothyroxine 88 mcg tablet 88 mcg PO DAILY Patient Comments: TAKE 1 TABLET BY MOUTH ONCE DAILY amlodipine 5 mg tablet See Rx Instructions .ROUTE .COMPLEX Qty: 30 5RF Dose Instruction: TAKE 1 TABLET BY MOUTH ONCE DAILY Rx Instructions: TAKE 1 TABLET BY MOUTH ONCE DAILY bisoprolol fumarate 5 mg tablet See Rx Instructions .ROUTE .COMPLEX Qty: 90 3RF Dose Instruction: Take 1 tablet by mouth once daily Rx Instructions: Take 1 tablet by mouth once daily clopidogrel 75 mg tablet See Rx Instructions .ROUTE .COMPLEX Qty: 90 3RF Dose Instruction: TAKE 1 TABLET BY MOUTH ONCE DAILY Rx Instructions: TAKE 1 TABLET BY MOUTH ONCE DAILY lisinopril 10 mg Tablet 10 mg PO DAILY Qty: 90 0RF omeprazole 40 mg Capsule,Delayed Release(Dr/Ec) 40 mg PO DAILY Qty: 90 0RF cholecalciferol (vitamin D3) [Vitamin D3] 50 mcg (2,000 unit) Capsule 50 mcg PO DAILY Qty: 90 0RF glyburide 2.5 mg tablet 2.5 mg PO DAILY Qty: 30 0RF atorvastatin 40 mg Tablet 40 mg PO HS 30 Days Qty: 30 0RF aspirin 81 mg Tablet,Chewable 81 mg PO DAILY Qty: 90 0RF Referrals Follow up/Referrals: Magalie White APRN [Primary Care Provider, Medical] - See instructions Clinical Impressions Clinical Impression: Acute non-ST elevation myocardial infarction (NSTEMI) Instructions Patient Instructions: Acute Coronary Syndrome Print Language Print Language: Indian Discharge ED Provider: Asim Herbert [facility] General Chief Complaint: Chest Pain Stated Complaint: chest pain Time Seen by Provider: 05/21/25 10:25 Mode of Arrival: EMS Source of Information: Patient Limitations: No Limitations Description of Symptoms (Recalled from ER Triage Doc. by RN): patient states he has had substernal chest pain for 3 days that is pressure, ems gave him 324mg of aspirin and one sublingual nitro 0.4 that relieved his pain. in triage he reports he is better and ready to go home History of Present Illness HPI narrative: Patient is a 84-year-old male who presents to the emergency department via EMS with complaints of chest pain. Patient states chest pain has been happening on and off for some time, has been worsening over the past several days, and was worse all through the night which prompted him to call 911 this morning. Patient describes the pain as being in the middle of his chest and does not endorse radiation, states the pain has been worse with laying flat which has led him to be sleeping in a recliner recently. Patient endorses shortness of breath along with the chest pain. States he took some of his ahwjkxy-eh-gql's water retention pills in recent days and has felt some relief, states his doctor gave him a 40 mg Lasix yesterday which he believes has helped his leg swelling go down. Patient had 2 stents placed in August 2024; states that he thinks he has felt worse with regards to chest pain and shortness of breath since then. Patient was given 325 of aspirin and 1 sublingual nitro by EMS and route to the ED. Patient states he does not know if the nitro made him feel any better; EMS provider states that at that time the patient said his pain went from a 12 to a 5 after the nitro. Patient denies any pain or nausea at time of this HPI patient denies any recent fever or other recent complaints; denies abdominal pain, nausea, vomiting. Cardiac cath 09/25/2024 IMPRESSION Severe critical disease as described above Successful stenting the ostial proximal mid distal left main artery severe disease reduced to 0% with 1 drug-eluting stent Successful stenting the ostial proximal mid LAD severe disease reduced to 0% with 2 contiguous drug-eluting stents Preserved ejection fraction Normal LVEDP Onset (ago): day(s) Related Data Home Medications ?Medication ?Instructions ?Recorded ?Confirmed levothyroxine 88 mcg tablet 88 mcg PO DAILY 11/28/24 0 11/28/24 Previous Rx's ?Medication ?Instructions ?Recorded cholecalciferol (vitamin D3) 50 50 mcg PO DAILY #90 ca ps 02/21/24 mcg (2,000 unit) capsule (Vitamin D3) glyburide 2.5 mg tablet 2.5 mg PO DAILY #30 tabs lisinopril 10 mg tablet 10 mg PO DAILY #90 tabs 02/01 07/26 omeprazole 40 mg capsule,delayed 40 mg PO DAILY #90 ca ps 02/21/24 release aspirin 81 mg chewable tablet 81 mg PO DAILY #90 tabs 09/26/24 atorvastatin 40 mg tablet 40 mg PO HS 30 days #30 tabs 09/26/24 amlodipine 5 mg tablet See Rx Instructions .Route 0 01/02/25 .COMPLEX #30 tabs bisoprolol fumarate 5 mg tablet See Rx Instructions .R oute 03/04/25 .COMPLEX #90 tabs clopidogrel 75 mg tablet See Rx Instructions .Route 1 .COMPLEX #90 tabs Allergies Allergy/AdvReac Type Severity Reaction Status Date / Time morphine Allergy Intermediate I-ITCHING Verified 11/28/24 13:[address] [facility] Disclaimer: The information contained in this section may have been updated after the patient was seen, as this information can be updated by other users. Medical History (Updated 05/21/25 @ 12:53 by CODY Guillen) Fatigue SOB (shortness of breath) Chest pain Atypical angina Abnormal findings on diagnostic imaging of heart and coronary circulation Dizziness Renal insufficiency Medical non-compliance Hypothyroidism Diabetes mellitus Hyperlipidemia Hypertension Ventricular bigeminy Surgical History History of cardiac cath Family History Other No significant family history Social History Smoking Status: Never smoker alcohol intake: never substance use type: denies use current occupational status: retired Travel in the last 8 weeks?: None household members: spouse housing: house current occupational exposures/hazards: No caffeine: Yes Have you lived/traveled outside US in past 30 days?: No Contact w/someone who lives/traveled outside US past 30 days?: No Exposure to someone with infectious disease in past 14 days?: No Do you have a fever (greater than 100.4 F or 38 C)?: No Have you tested positive for COVID-19?: No Exposed to someone with COVID-19 in past 14 days?: No Do you have a sore throat?: No Do you have a cough?: No Do you have any weakness?: No Do you have any diarrhea?: No Are you experiencing any unusual bleeding?: No Do you have any muscle aches/pain?: No Do you have any abdominal pain?: No Are you experiencing loss of taste or smell?: No Other Medical History Have you received the Flu Vaccine for this season: No Have you received the Pneumonia Vaccine: No ROS Obtained: Yes Systems reviewed as appropriate & no additional complaints except as documented Physical Exam General General appearance: alert and in no apparent distress Head Head exam: atraumatic and normocephalic Eye Eye exam: Present normal appearance and PERRL Neck Neck exam: Present normal inspection and trachea midline Chest Chest inspection: Present normal inspection and symmetric chest wall rise; Absent tenderness Respiratory Respiratory exam: Present normal lung sounds bilaterally; Absent respiratory distress, wheezes or stridor Cardiovascular Cardiovascular exam: Present regular rate and other (PVCs noted; runs of trigeminy and quadrigeminy observed on bedside monitor) Abdominal Exam Abdominal exam: Present soft and normal bowel sounds; Absent distention, tenderness or guarding Extremities Exam Extremities exam: Present normal inspection Back Exam Back exam: Present normal inspection and tenderness Neurological Exam Neurological exam: Present alert and oriented X3 Psychiatric Psychiatric exam: Present normal affect and normal mood Skin Skin exam: Present warm and dry HEART Score HEART Score HEART Score assessment performed?: Yes History (anamnesis): Moderately suspicious ECG: Non-specific disturbance Age: >65 years Risk factors: 3 or more risk factors Troponin: 1-3x normal limit HEART Score: 7 Critical Care Critical Care Time Critical Care Time: No Medical Decision Making Medical Records Medical records reviewed: Yes I reviewed the patient's medical records. Sreedhar Inquiry Pt receiving controlled substance: No Vital Signs Vital Signs: 05/21/25 10:25 05/21/25 10:30 05/21/25 11:00 Temperature 98.4 F Temperature Source Oral Pulse Rate 53 L Pulse Rate [Right Radial] 61 Respiratory Rate 15 18 15 Blood Pressure 122/74 122/64 Blood Pressure [Right Arm] 135/78 Blood Pressure Mean [Right Arm] 97 Blood Pressure Source [Right Arm] Automatic Cuff Blood Pressure Position [Right Arm] Supine 02 Sat by Pulse Oximetry 98 97 Oxygen Delivery Method Room Air 05/21/25 11:30 05/21/25 12:01 Temperature Temperature Source Pulse Rate 54 L 58 L Pulse Rate [Right Radial] Respiratory Rate 13 17 Blood Pressure 136/68 147/77 H Blood Pressure [Right Arm] Blood Pressure Mean [Right Arm] Blood Pressure Source [Right Arm] Blood Pressure Position [Right Arm] 02 Sat by Pulse Oximetry 98 98 Oxygen Delivery Method Lab Data Lab results reviewed: Yes I reviewed the patient's lab results. Labs: Lab Results 05/21/25 10:21: WBC 7.9, RBC 4.56 L, Hgb 14.3, Hct 42.7, MCV 93.6, MCH 31.4 H, MCHC 33.5, RDW 12.6, Plt Count 152, MPV 11.5 H, Neut % (Auto) 49.1, Lymph % (Auto) 33.4, Meigs % (Auto) 11.5 H, Eos % (Auto) 4.7, Baso % (Auto) 1.0, Neut # (Auto) 3.9, Lymph # (Auto) 2.6, Meigs # (Auto) 0.9, Eos # (Auto) 0.4, Baso # (Auto) 0.1, Sodium 140, Potassium 4.2, Chloride 104, Carbon Dioxide 28, Anion Gap 12.2, BUN 39 H, Creatinine 1.80 H, Estimated Creat Clear 34, Estimated GFR 36 L, Est GFR ( Amer) 44 L, Glucose 173 H, Hemoglobin A1c 6.9 H, Calcium 9.4, Phosphorus 3.5, Magnesium 1.8, Total Bilirubin 0.7, AST 27, ALT 16, Alkaline Phosphatase 76, Troponin I 0.13 H, NT-Pro-B Natriuret Pep 387, Total Protein 7.0, Albumin 4.6, Globulin 2.4, Albumin/Globulin Ratio 1.9 H, T riglycerides 234 H, Cholesterol 170, LDL Cholesterol Direct 100.54, VLDL Cholesterol 47 H, HDL Cholesterol 30 L, Cholesterol/HDL Ratio 5.7 H, TSH 4.04 05/21/25 10:21 05/21/25 10:21 Response Orders (Tests/Meds): ED MEDICATIONS Generic Name Dose Route Start Last Admin Trade Name Lana PRN Reason Stop Dose Admin Acetaminophen 650 mg 05/21/25 12:44 Acetaminophen 325mg Tab PO 06/20/25 12:43 Q4HP PRN Fever or Mild Pain (1-3) Hydrocodone Bitart/Acetaminophen 1 tab 05/21/25 12:44 Hydrocodone/Apap 5/325 Mg Tablet PO 06/20/25 12:43 Q4HP PRN Moderate Pain (4-6) Diazepam 5 mg 05/21/25 13:09 Diazepam 5mg Tablet PO 05/22/25 01:09 ONCE PRN Anxiety Enoxaparin Sodium 40 mg 05/22/25 09:00 Enoxaparin 40mg/0.4ml Syringe SUBCUT 06/21/25 08:59 DAILY WENDY Fentanyl Citrate 50 mcg 05/21/25 13:09 Fentanyl 100mcg/2ml Vial IV 05/22/25 01:09 Q3MINP PRN Sedation Fentanyl Citrate 25 mcg 05/21/25 13:09 Fentanyl 100mcg/2ml Vial IV 05/22/25 01:09 Q3MINP PRN Sedation Flumazenil 0.2 mg 05/21/25 13:09 Flumazenil 0.1mg/Ml 5ml Vial IV 05/22/25 01:09 NEEDED PRN Sedation Heparin Sodium (Porcine) 5,000 unit 05/21/25 13:09 Heparin 1,000 Units/Ml 10ml Vial (Mechanical Shovel Operator) IV 05/21/25 17:09 NEEDED PRN Emergency Box Safety Deposit Supervisor Hydralazine HCl 20 mg 05/21/25 13:09 Hydralazine 20mg/Ml Vial IV 05/21/25 17:09 ONCE PRN sbp>160 Adenosine 180 mg/ Sodium 90 mls @ 440.894 mls/hr 05/21/25 13:09 Chloride IV 05/21/25 17:09 ONCE PRN fractional flow reserve 180 MCG/KG/MIN Adenosine 90 mg/ Sodium 90 mls @ 881.788 mls/hr 05/21/25 13:09 Chloride IV 05/21/25 17:09 ONCE PRN fractional flow reserve 180 MCG/KG/MIN Sodium Chloride 500 mls @ 25 mls/hr 05/21/25 13:15 Sod Chloride 0.9% 500ml Bag IV 05/22/25 13:09 .Q20H [facility] Insulin Human Lispro 0 unit 05/21/25 16:30 Humalog 100 Units/Ml 10ml Vial ([facility]) SUBCUT 06/20/25 16:29 ACHS [facility] Protocol Labetalol HCl 20 mg 05/21/25 13:09 Labetalol 20mg/4ml Syringe IV 05/21/25 17:09 ONCE PRN sbp>160 Midazolam HCl 1 mg 05/21/25 13:09 Midazolam 2mg/2ml Vial IV 05/22/25 01:09 Q3MINP PRN Sedation Midazolam HCl 1 mg 05/21/25 13:09 Midazolam Hcl 1mg/Ml 5ml Vial IV 05/22/25 01:09 Q3MINP PRN Sedation Naloxone HCl 0.4 mg 05/21/25 13:09 Naloxone 0.4mg/Ml Vial IV 05/22/25 01:09 Q5MINP PRN Decreased Respirations Nicotine 21 mg 05/21/25 12:44 Nicotine 21mg/24hr Patch TD 06/20/25 12:43 DAILYP PRN Nicotine Cravings Nitroglycerin 0.4 mg 05/21/25 10:41 05/21/25 12:11 Nitroglycerin 0.4mg Sl Tablet SL 05/22/25 10:41 0.4 mg Q5MINP PRN Administration Chest Pain Nitroglycerin 800 mcg 05/21/25 13:09 Nitroglycerin 800mcg/8ml Syr (Mechanical Shovel Operator) IA 05/21/25 17:09 NEEDED PRN Emergency Box Safety Deposit Supervisor Ondansetron HCl 4 mg 05/21/25 12:44 Ondansetron 4mg/2ml Vial IV 06/20/25 12:43 Q8HP PRN Nausea Ondansetron HCl 4 mg 05/21/25 13:09 Ondansetron 4mg/2ml Vial IV 05/22/25 01:09 NEEDED PRN Nausea Promethazine HCl 25 mg 05/21/25 13:09 Promethazine Hcl 25mg/Ml 1ml Vial IV 05/22/25 01:09 NEEDED PRN Nausea And Vomiting Protamine Sulfate 50 mg 05/21/25 13:09 Protamine Sulfate 50mg/5ml Vial (Mechanical Shovel Operator) IV 05/21/25 17:09 ONCE PRN act>200 Discontinued Medications Generic Name Dose Route Start Last Admin Trade Name Jarredq PRN Reason Stop Dose Admin Diphenhydramine HCl 50 mg 05/21/25 13:09 Diphenhydramine 50mg/Ml Vial IV 05/21/25 13:10 ONCE ONE Heparin Sodium/Sodium Chloride 3,000 unit 05/21/25 13:09 Heparin 1,000 Units/500ml Ns (Mechanical Shovel Operator) IV 05/21/25 13:10 ONCE ONE Sodium Chloride 500 mls @ 500 mls/hr 05/21/25 11:31 05/21/25 12:48 Sod Chloride 0.9% 500ml Bag IV 05/21/25 12:30 0 mls/hr .Q1H WENDY Infusion Lidocaine HCl 10 ml 05/21/25 13:09 Lidocaine 1% 10ml Mdv IJ 05/21/25 13:10 ONCE ONE Lidocaine HCl 10 ml 05/21/25 13:09 Lidocaine 1% 5ml Pf Vial IJ 05/21/25 13:10 ONCE ONE Morphine Sulfate 4 mg 05/21/25 13:09 Morphine 4mg/Ml Syringe IV 05/21/25 13:10 ONCE ONE Sodium Chloride 25 ml 05/21/25 13:09 Sodium Chloride 0.9% 25ml Bag IV 05/21/25 13:10 ONCE ONE Verapamil HCl 2.5 mg 05/21/25 13:09 Verapamil 2.5mg/Ml 2ml Vial IV 05/21/25 13:10 ONCE ONE ORDERS Category Date Time Status Cardiology Consult [Consult to Cardiology] [CONS] Cons 05/21/25 12:44 Active Routine XR chest portable Stat Exams 05/21/25 10:41 Completed Complete Blood Count Auto Diff AMLAB Lab 05/22/25 06:00 Ordered Complete Blood Count Auto Diff AMLAB Lab 05/23/25 06:00 Ordered Complete Blood Count Auto Diff AMLAB Lab 05/24/25 06:00 Ordered Complete Blood Count Auto Diff AMLAB Lab 05/25/25 06:00 Ordered Complete Blood Count Auto Diff AMLAB Lab 05/26/25 06:00 Ordered Complete Blood Count Auto Diff Stat Lab 05/21/25 10:21 Completed Comprehensive Metabolic Panel AMLAB Lab 05/22/25 06:00 Ordered Comprehensive Metabolic Panel AMLAB Lab 05/23/25 06:00 Ordered Comprehensive Metabolic Panel AMLAB Lab 05/24/25 06:00 Ordered Comprehensive Metabolic Panel AMLAB Lab 05/25/25 06:00 Ordered Comprehensive Metabolic Panel AMLAB Lab 05/26/25 06:00 Ordered Comprehensive Metabolic Panel Stat Lab 05/21/25 10:21 Completed HIV Combo Stat Lab 05/21/25 10:20 Received Hemoglobin A1C Stat Lab 05/21/25 10:21 Completed Hepatitis C Ab Qual. W/ RFX Stat Lab 05/21/25 10:20 Received Lipid Panel Routine Lab 05/21/25 10:21 Completed Magnesium AMLAB Lab 05/22/25 06:00 Ordered Magnesium AMLAB Lab 05/23/25 06:00 Ordered Magnesium AMLAB Lab 05/24/25 06:00 Ordered Magnesium AMLAB Lab 05/25/25 06:00 Ordered Magnesium AMLAB Lab 05/26/25 06:00 Ordered Magnesium Stat Lab 05/21/25 10:21 Completed NT Pro Brain Natriuretic Pep. Stat Lab 05/21/25 10:21 Completed Phosphorous Stat Lab 05/21/25 10:21 Completed TSH [Thyroid Stimulating Hormone] Stat Lab 05/21/25 10:21 Completed Troponin I Q3H Lab 05/21/25 13:30 Received Troponin I Q3H Lab 05/21/25 16:45 Ordered Troponin I Stat Lab 05/21/25 10:21 Completed CA echo doppler complete Stat Y 05/21/25 12:44 Completed Physician Consults Physician Consulted: Dr. Lynn Time: 12:26 Reason -: Admission Comment/Response: Mechanical Shovel Operator MDM Narrative Medical Decision Narrative: In summary patient is an 84-year-old male who presents to the emergency department for evaluation of chest pain. Patient is hemodynamically stable upon arrival, afebrile. Unremarkable physical exam with lung sounds clear in all scott bilaterally, no JVD or tracheal deviation noted, no increased work of breathing, no chest tenderness, minimal edema noted to lower legs bilaterally which patient says is improved from his normal swelling level. Differential diagnosis includes ACS, CHF exacerbation, pneumonia. Initial workup will be conducted with appropriate labs, chest x-ray, EKG. Initial interventions include normal saline 500 mL, as needed nitroglycerin ordered but not given during patient's ED course. Initial workup reviewed by ga CBC with no significant leukocytosis or anemia, chemistry with acute on chronic kidney injury, no significant electrolyte dysfunction or transaminitis BNP within normal limits, initial troponin 0.13. Upon repeat evaluation patient had additional chest pain, and repeat EKG continued to show ischemia. Given this, shredding machine tender Dr. Lynn was consulted and believes this patient is a candidate for Mechanical Shovel Operator today. Full report of patient's ED course was given to hospitalist physician Dr. Cox for admission. I informally interpreted the patient's chest x-ray and no acute cardiopulmonary process was noted. EKG was interpreted by ED attending physician. I informally interpreted EKG on bedside monitor was sinus rhythm with intermittent PVCs; runs of trigeminy and bigeminy noted. Repeat twelve-lead EKG continue to show ischemia.
--- NOTE | 2025-05-21 10:41 | XR_ITS ---
FINAL REPORT CLINICAL HISTORY: CP, hx of CHF COMPARISON: 05/19/2025 FINDINGS: A portable view of the chest was obtained. Cardiac and mediastinal silhouettes are within normal limits. The lungs are clear. There is no pleural effusion or pneumothorax. IMPRESSION: No acute process on this portable exam. Reviewed, Interpreted and Dictated by Amber Cardozo MD Transcribed by Sherin Preston Authenticated and [facility]
[2025-05-21 10:52] LABS: Hematocrit 42.7 % (42.0-52.0); Hemoglobin 14.3 g/dL (14.1-18.0); Immature Granulocytes % 0.3 %; Mean Corpuscular HGB Conc 33.5 g/dL (31.8-35.4); Mean Corpuscular Hemoglobin 31.4 pg (27.0-31.2); Mean Corpuscular Volume 93.6 fl (80-94); Nucleated Red Blood Cells % 0 %; Platelet Count 152 K/mm3 (142-424); Red Blood Count 4.56 M/mm3 (4.60-6.20); Red Cell Distribution Width-SD 43.1 fL; White Blood Count 7.9 K/mm3 (4.8-10.8)
[2025-05-21 10:56] LABS: Alanine Aminotransferase 16 U/L (12-78); Albumin Level 4.6 g/dl (3.5-5.0); Albumin/Globulin Ratio 1.9 (1.1-1.8); Alkaline Phosphatase 76 U/L (38-126); Anion Gap 12.2 mEq/L (5-15); Aspartate Amino Transferase 27 U/L (17-59); Bilirubin,Total 0.7 mg/dl (0.2-1.3); Blood Urea Nitrogen 39 mg/dl (9-20); Calcium 9.4 mg/dl (8.4-10.2); Carbon Dioxide 28 mmol/L (22.0-30.0); Chloride 104 mmol/L (98-107); Creatinine Clearance Estimated 34 mL/min (50-200); Creatinine,Serum 1.80 mg/dl (0.66-1.25); Estimated Glomerular Filt Rate 36 ml/min (>60); GFR (African American) 44 ML/MIN (>60); Globulin 2.4 g/dL (1.3-3.2); Glucose 173 mg/dl (74-100); Magnesium 1.8 mg/dl (1.6-2.3); Phosphorous 3.5 mg/dl (2.5-4.5); Potassium 4.2 mmoL/L (3.5-5.1); Sodium 140 mmol/L (136-145); Total Protein,Serum 7.0 g/dl (6.3-8.2)
[2025-05-21 11:08] LABS: NT Pro Brain Natriuretic Pep. 387 pg/mL (0-450); Troponin I 0.13 ng/ml (0.00-0.034)
[2025-05-21] MEDS: 0.9 % SODIUM CHLORIDE 500 ML IV (11:53)
--- OUTSIDE RECORDS SUMMARY | 2025-05-21 11:53 | XMS_ITS ---
Author Organization Unknown ENCOUNTERS Encounter Performer Location Date Diagnosis Diagnosis Status Emergency [facility] [place] [address] [place] [address] [id number] Pre Admit [facility] [place] [address] [place] [id number] Outpatient [facility] [place] [address] [place] [id number] [facility] Out[facility] [address] [place] [place] [address] [id number] [facility] Emergency [place] [address] [place] [id number] A Pre Admit [place] [address] [place] [id number] *Note: Encounters from your own facility or health system may be excluded. Allergies, Adverse Reactions, Alerts Allergen Type Severity Identification Date morphine drug allergy 3 [id number] Medications Name Date Quantity Days Supplied GPI Number
--- NOTE | 2025-05-21 11:56 | PC.NURSE ---
Rounded on patient, no needs voiced at this time.
[2025-05-21] MEDS: NITROGLYCERIN 0.4MG SL TABLET 0.4 MG SL (12:11)
--- NOTE | 2025-05-21 12:12 | ECG_ITS ---
APPROVED REPORT Exam: Resting ECG HR:60 bpm ECG Measurements Heart Rate 60 AXES TX 169 P 66 QRSd 94 QRS 34 QT 433 T 0 QTc 435 Conclusion SINUS RHYTHM MODERATE ST DEPRESSION [0.05+ mV ST DEPRESSION] ABNORMAL ECG INTERPRETATION BASED ON A DEFAULT AGE OF 40 YEARS UNCONFIRMED REPORT Normal sinus rhythm. ST depressions in leads V3, V4, V5 and mild depressions in V6, 2, 3 and possibly aVF as well. Very mild elevation in ST segment of aVL Electronically signed by : NADYA GARNER, 05/22/2025 14:26:32
--- NOTE | 2025-05-21 12:44 | CA_ITS ---
APPROVED REPORT EXAM: Comprehensive 2D, Doppler, and color-flow Echocardiogram Barrel Leveler: Steph Lott RT(R) Ht: 6 ft 1 in Wt: 180lbs BSA: 2.06 BP: 147/77 mmHg Indications: NSTEMI, chest pain, CAD M-Mode Dimensions RVDd 3.02 cm (0.9-2.6) LA Diam 3.79 cm (1.9-4.0) LVDd 3.82 cm (3.5-5.7) LVDs 2.78 cm (3.5-5.7) IVSd 0.85 cm (0.6-1.1) PWd 1.09 cm (0.6-1.1) EF (Teich) 53.70% FS 27.20% EDV (Teich) 62.70 mL ESV (Teich) 29.00 mL LV Diastology E Decel Time 277 (160-240 msec) E/A Ratio 0.7 Mitral Valve MV E Max Romeo. 66.0 (40-130 cm/s) MV A Velocity 101.0 (40-130 cm/s) E/A Ratio 0.66 MV PHT 81.0 ms Left Ventricle The left ventricle is normal size. Left ventricular systolic function is normal. The left ventricular ejection fraction is within the normal range. There is increased left ventricular wall thickness. There is normal LV segmental wall motion. The left ventricular diastolic function is normal. LVEF is 60% Right Ventricle The right ventricle is normal size. The right ventricular systolic function is normal. Atria Left atrium is mildly dilated. Right atrium is mildly dilated. There is no color Doppler evidence of interatrial shunt. Aortic Valve The aortic valve opens well. There is no hemodynamically significant aortic valvular stenosis. No aortic regurgitation is present. Mitral Valve The mitral valve is normal in structure. No evidence of mitral valve stenosis. Mild mitral regurgitation is present. Tricuspid Valve The tricuspid valve leaflets are thin and pliable. Trace tricuspid regurgitation. There is insufficient TR jet to estimate RVSP. Pulmonic Valve The pulmonary valve is grossly normal in structure. Trace pulmonic valve regurgitation is present. Great Vessels The aortic root is normal in size. IVC is normal in size and collapses >50% with inspiration. Pericardium There is no pericardial effusion. Other Information Study Quality: Fair Conclusion Normal biventricular systolic function. Mild biatrial dilation. Mild MR. Electronically signed by : Sadaf Ballesteros MD 05/22/2025 12:42:54
--- NOTE | 2025-05-21 12:44 | EXP.HP ---
History of Present Illness *Admission Date: 05/21/25 *Reason for visit:: Chest pain, leg swelling *History of present illness: Layo Bergeron is a 84-year-old male with medical history significant for CAD with 2 stents, type 2 diabetes, CKD, hypertension, hypothyroidism, GERD who presents with several day history of midsternal chest pain and worsening leg swelling. Patient states this chest pain was aching in nature and got progressively worse to the point where he decided come to the ED. He also notes he has had bilateral leg swelling, pain for about 1 to 2 weeks for which his PCP prescribed Lasix 40 mg which he has been adherent to. He denies fever/chills, shortness of breath, cough, abdominal pain. He also notes he did have some alleviation of chronic chest pain with 2 stents in August but has had on and off chest pain since then still. Workup in the ED significant for creatinine 1.8, hemoglobin A1c 6.9%, troponin 0.13, EKG without acute ischemic changes, CXR without acute findings. He received aspirin 324 mg on EMS and given additional IV nitroglycerin in the ER with NS 100 mL liter bolus. Given his presentation ER consulted Dr. Lynn who recommended further evaluation with a left heart cath and admission. I was consulted by the ED provider and I decided to admit patient for further evaluation management. [facility] Disclaimer: The information contained in this section may have been updated after the patient was seen, as this information can be updated by other users. Medical History Fatigue SOB (shortness of breath) Chest pain Atypical angina Abnormal findings on diagnostic imaging of heart and coronary circulation Dizziness Renal insufficiency Medical non-compliance Hypothyroidism Diabetes mellitus Hyperlipidemia Hypertension Ventricular bigeminy Surgical History History of cardiac cath Family History Other No significant family history Social History (Updated 05/21/25 @ 14:31 by Randi Pantoja RN) Smoking Status: Never smoker alcohol intake: never substance use type: denies use current occupational status: retired Travel in the last 8 weeks?: None household members: spouse housing: house current occupational exposures/hazards: No caffeine: Yes Have you lived/traveled outside US in past 30 days?: No Contact w/someone who lives/traveled outside US past 30 days?: No Exposure to someone with infectious disease in past 14 days?: No Do you have a fever (greater than 100.4 F or 38 C)?: No Have you tested positive for COVID-19?: No Exposed to someone with COVID-19 in past 14 days?: No Do you have a sore throat?: No Do you have a cough?: No Do you have any weakness?: No Are you experiencing any nausea/vomitting?: No Do you have any diarrhea?: No Are you experiencing any unusual bleeding?: No Do you have any muscle aches/pain?: No Do you have any abdominal pain?: No Are you experiencing loss of taste or smell?: No Other Medical History Have you received the Flu Vaccine for this season: No Have you received the Pneumonia Vaccine: No Meds Home Medications and Allergies Home Medications ?Medication ?Instructions ?Recorded ?Confirmed ?Type glyburide 2.5 mg tablet 2.5 mg PO DAILY #30 tabs 02/21/24 05/21/25 Rx lisinopril 10 mg tablet 10 mg PO DAILY #90 tabs 02/21/24 05/21/25 Rx omeprazole 40 mg capsule,delayed 40 mg PO DAILY #90 caps 02/21/24 05/21/25 Rx release aspirin 81 mg chewable tablet 81 mg PO DAILY #90 tabs 09/26/24 05/21/25 Rx atorvastatin 40 mg tablet 40 mg PO HS 30 days #30 tabs 09/26/24 05/21/25 Rx levothyroxine 88 mcg tablet 88 mcg PO DAILY 11/28/24 05/21/25 History amlodipine 5 mg tablet 5 mg PO DAILY 05/21/25 05/21/25 History bisoprolol fumarate 5 mg tablet 5 mg PO DAILY 05/21/25 05/21/25 History clopidogrel 75 mg tablet 75 mg PO DAILY 05/21/25 05/21/25 History furosemide 40 mg tablet (Lasix) 40 mg PO DAILY 05/21/25 05/21/25 History New Prescriptions to Start Prescriptions: Allergies Allergy/AdvReac Type Severity Reaction Status Date / Time morphine Allergy Intermediate I-ITCHING Verified 11/28/24 13:19 Exam Data for Last 24 hours Vital signs and Labs for Last 24 Hours: Temp Pulse Resp BP Pulse Ox O2 Del Method 98.4 F 58 L 17 147/77 H 98 Room Air 05/21/25 10:25 05/21/25 12:01 05/21/25 12:01 05/21/25 12:01 05/21/25 12:01 05/21/25 10:25 Laboratory Results - last 24 hr 05/21/25 10:21: WBC 7.9, RBC 4.56 L, Hgb 14.3, Hct 42.7, MCV 93.6, MCH 31.4 H, MCHC 33.5, RDW 12.6, Plt Count 152, MPV 11.5 H, Neut % (Auto) 49.1, Lymph % (Auto) 33.4, [place] % (Auto) 11.5 H, Eos % (Auto) 4.7, Baso % (Auto) 1.0, Neut # (Auto) 3.9, Lymph # (Auto) 2.6, [place] # (Auto) 0.9, Eos # (Auto) 0.4, Baso # (Auto) 0.1, Sodium 140, Potassium 4.2, Chloride 104, Carbon Dioxide 28, Anion Gap 12.2, BUN 39 H, Creatinine 1.80 H, Estimated Creat Clear 34, Estimated GFR 36 L, Est GFR ( Amer) 44 L, Glucose 173 H, Calcium 9.4, Phosphorus 3.5, Magnesium 1.8, Total Bilirubin 0.7, AST 27, ALT 16, Alkaline Phosphatase 76, Troponin I 0.13 H, NT-Pro-B Natriuret Pep 387, Total Protein 7.0, Albumin 4.6, Globulin 2.4, Albumin/Globulin Ratio 1.9 H I & O for Last 24 hours: Intake & Output 05/18/25 05/19/25 05/20/25 05/21/25 23:59 23:59 23:59 23:59 Weight 81.647 kg Constitutional Constitutional: no acute distress and chronically ill appearing *Routine HEENT Exam Head: Present normocephalic Eye: Present EOMI and PERRL ENT: Present mucous membranes moist *Routine Neck Exam Neck: Present supple; Absent lymphadenopathy *Routine Respiratory Exam Respiratory: Present CTA bilaterally *Routine Cardiovascular Exam Cardiovascular: Present RRR *Routine Abdominal Exam Abdominal: Present soft and normoactive bowel sounds; Absent tenderness *Routine Rectal Exam Rectal:: deferred *Routine Genitalia Exam Genitalia:: deferred *Routine Extremities Exam Extremities: Absent cyanosis, clubbing or edema *Routine Skin Exam Skin: Present warm; Absent rash *Routine Neurological Exam Neurological: Present alert and oriented X3 Assessment and Plan *Assessment and plan (1) Acute non-ST elevation myocardial infarction (NSTEMI): Status: Acute Category: Medical Code(s): I21.4 - Non-ST elevation (NSTEMI) myocardial infarction Plan Layo Bergeron is a 84-year-old male with medical history significant for CAD with 2 stents, type 2 diabetes, CKD, hypertension, hypothyroidism, GERD who presents with several day history of midsternal chest pain and worsening leg swelling. Patient states this chest pain was aching in nature and got progressively worse to the point where he decided come to the ED. He also notes he has had bilateral leg swelling, pain for about 1 to 2 weeks for which his PCP prescribed Lasix 40 mg which he has been adherent to. He denies fever/chills, shortness of breath, cough, abdominal pain. He also notes he did have some alleviation of chronic chest pain with 2 stents in August but has had on and off chest pain since then still. Workup in the ED significant for creatinine 1.8, hemoglobin A1c 6.9%, troponin 0.13, EKG without acute ischemic changes, CXR without acute findings. He received aspirin 324 mg on EMS and given additional IV nitroglycerin in the ER with NS 100 mL liter bolus. Given his presentation ER consulted Dr. Lynn who recommended further evaluation with a left heart cath and admission. I was consulted by the ED provider and I decided to admit patient for further evaluation management. #NSTEMI type I #CAD with stents #Hypertension #Hyperlipidemia #CKD stage III ? Patient presented with progressive midsternal chest pain and was found to have an NSTEMI troponin 0.13. ? S/p PCI on 05/21/2025, received BRENT x 4 to circumflex and LAD arteries. Patient tolerated procedure well. Feels better, no longer having chest pain. ? Dr. Lynn will recommended IV maintenance fluids overnight given contrast bolus in the [place]er. Started LR at 50 ml/h given lower extremity edema. ? Initial BNP 387, low suspicion for decompensated heart failure. Likely venous insufficiency. Will elevate legs, start IPC's. Hold home amlodipine due to swelling. ? A1c 6.9%, LDL 100, TSH normal. ? Continue home aspirin 81 mg, Plavix 75 mg, atorvastatin 40 mg, lisinopril 10 mg. ? Continuous cardiac telemetry. ? Follow-up ECHO. ? Cardiology consulted, pending further recommendations. ? Follow-up morning CMP, creatinine 1.8 and GFR 36. At baseline. #Type 2 diabetes ? A1c 6.9, LDSSI, ACHS glucose checks. #Hypothyroidism ? Continue home levothyroxine 88 mcg. TSH normal. #GERD ? Continue home PPI. Full code DVT prophylaxis: Lovenox 40 mg Home medications: Restarted.
--- NOTE | 2025-05-21 12:49 | IR_ITS ---
APPROVED REPORT Patient Location: Inpatient PROCEDURES Left heart catheterization Left ventriculogram Selective coronary angiogram Intravascular ultrasound to the LAD Drug-eluting stent deployment to the proximal LAD with additional drug-eluting stent deployment to the mid LAD in a noncontiguous manner Drug-eluting stent deployment to the distal left main artery extending into the circumflex artery Drug-eluting stent deployment to the mid dominant circumflex artery in a noncontiguous manner Intravascular ultrasound to the left main artery extending into the circumflex artery INDICATION Acute non-ST elevation myocardial infarction, Coronary artery disease, Angina pectoris, Complex intervention requiring IVUS for guidance Informed consent was obtained prior to the procedure. COMPLICATIONS NONE Estimated Blood Loss: LESS THAN 10 ML TECHNIQUE One percent lidocaine used to anesthetize the right anterior aspect of the wrist. The right radial artery was accessed via the Seldinger technique. A 6 Greek sheath was placed in the right radial artery. 2.5 mg of Verapamil, 800 mcg of nitroglycerin, 1mg Lidocaine and 5000 U Heparin were given through the arterial sheath. The JL3 catheter was also used to perform left heart catheterization, left ventriculogram and selective coronary angiogram. At the end the diagnostic angiogram therapeutic Was administered giving a therapeutic ACT and the guide catheter was placed in left main artery followed by Choice PT extra-support wire placed down the LAD. A 2.5 x 12 mm Omar frontier stent was deployed at 18 stevie reducing the mid vessel stenosis to 0%. This appeared to be edge stenosis. Following this a 3.5 x 12 mm Omar frontier stent was placed proximally and deployed at a napkin ring lesion at 20 stevie. This reduced the stenosis. Intravascular ultrasound probe was advanced which demonstrated the stent was widely patent in the proximal segment. Distally there was excellent transitioning into the [place] vessel with good expansion of the mid LAD vessel. At this point the apparatus was removed and the patient was undraped. During review of the angiography it was determined there was a focal highly cryptic lesion in the ostium of the circumflex artery which could barely be seen and only visualized by frame by frame analysis. This was a severe greater than 90% stenosis. At this point the patient was sterilely prepped again and an EBU 3.75 guide catheter was placed in the left main artery followed by Choice PT extra-support wire placed into the circumflex artery. A 3 mm compliant balloon was placed in the distal left main artery into the proximal circumflex artery that 15 stevie to predilate. A 4.5 x 26 mm Omar frontier stent was placed in the ostial segment of the left main artery and extending into the proximal dominant circumflex artery and deployed at 20 stevie. Intravascular ultrasound probe was then inserted which demonstrated excellent IVUS results in the left main artery extending into the circumflex artery with excellent expansion and apposition of the stent. At this point a 3.5 x 12 mm Omar frontier stent was placed in the mid circumflex artery and deployed at 20 stevie. The balloon was brought back to the ostial segment deployed at 24 stevie and then ended throughout the left main artery into the ostium of the left main artery and left coronary cusp at 24 stevie. Wire was pulled back and placed in the LAD where a 2.5 x 12 mm compliant balloon was used to open the struts going into the LAD. This was followed by 3.5 x 15 mm noncompliant balloon deployed at 24 stevie in the distal left main artery stenting into the LAD. Excellent angiograph results were obtained with wide patency of the left main artery LAD and circumflex artery. At the end the procedure the apparatus was removed the sheath was removed good hemostasis was achieved using TR banding patient was transferred to the postop already in stable condition ANGIOGRAPHIC RESULTS The left main artery Has a stent in the ostial segment which extends into the LAD which is widely patent and free of in-stent restenosis with excellent transitioning The left anterior descending artery Has a stent originating from the left main artery which has a proximal concentric 70% stenosis. The proximal portion is slightly underexpanded but then has a 70% stenosis at the distal transitioning site into the mid LAD. The remaining vessel is widely patent with diffuse 30% stenosis The circumflex artery Large dominant vessel with an ostial proximal focal 90% stenosis followed by an additional 70% concentric mid vessel stenosis. A large first obtuse marginal artery has a proximal 40% stenosis while the mid circumflex artery has additional 30 and 40% stenosis The right coronary artery Small nondominant with proximal 50% mid vessel 70% stenosis and distal 70% stenoses. The mid vessel is 2 mm in diameter The KATZ ventriculogram reveals Normal 65% The left ventricular end-diastolic pressure 20 mmHg IMPRESSION Severe coronary disease as described above Successful stenting of the left main artery Successful stenting of the ostial dominant circumflex artery with additional noncontiguous stenting in the mid circumflex artery Successful stenting of the proximal LAD with additional stenting in the mid LAD in a noncontiguous manner Intravascular ultrasound interrogation as described above Normal ejection fraction Elevated LVEDP PLAN 1. Dual antiplatelet therapy 2. Cardiac rehabilitation 3. Avoidance of tobacco products 4. Risk factor modification 5. LDL less than 55 to be achieved with high intensity statin 6. IV fluids and check creatinine in the morning due to copious contrast and presence of renal failure Electronically signed by : Perry Lynn MD 05/21/2025 16:07:11
[2025-05-21 13:00] LABS: Cholesterol 170 mg/dl (140-200); HDL Cholesterol 30 mg/dl (40-60); Triglycerides 234 mg/dl (30-150)
[2025-05-21 13:09] LABS: Hemoglobin A1C 6.9 % (4.0-6.0)
--- NOTE | 2025-05-21 13:10 | EXP.CARD.CON ---
History of Present Illness History of Present Illness Consult date: 05/21/25 Requesting physician: Werner Cox Consult reason: chest pain Chief complaint: Chest pain History of present illness: Layo Bergeron is an 84 year old white male with past medical hx fo CAD s/p stenting to Left main and LAD in August, htn and hld who presented to ER with complaint of midsternal chest pain, progressive and worsening x 3 days. Associated with shortness of breath and lower extremity edema. Reports has continued to have intermittent chest pain since stenting. EKG upon presentation to ER negative for STEMI. Frequent PVCs and ST depressions noted. Chest x-ray clear for cardiopulmonary process. Initial troponin 0.13. Creatinine 1.8. Echo pending. Patient awaiting left heart catheterization today. [facility] Disclaimer: The information contained in this section may have been updated after the patient was seen, as this information can be updated by other users. Medical History (Updated 05/21/25 @ 12:53 by CODY Guillen) Fatigue SOB (shortness of breath) Chest pain Atypical angina Abnormal findings on diagnostic imaging of heart and coronary circulation Dizziness Renal insufficiency Medical non-compliance Hypothyroidism Diabetes mellitus Hyperlipidemia Hypertension Ventricular bigeminy Surgical History History of cardiac cath Family History Other No significant family history Social History Smoking Status: Never smoker alcohol intake: never substance use type: denies use current occupational status: retired Travel in the last 8 weeks?: None household members: spouse housing: house current occupational exposures/hazards: No caffeine: Yes Have you lived/traveled outside US in past 30 days?: No Contact w/someone who lives/traveled outside US past 30 days?: No Exposure to someone with infectious disease in past 14 days?: No Do you have a fever (greater than 100.4 F or 38 C)?: No Have you tested positive for COVID-19?: No Exposed to someone with COVID-19 in past 14 days?: No Do you have a sore throat?: No Do you have a cough?: No Do you have any weakness?: No Do you have any diarrhea?: No Are you experiencing any unusual bleeding?: No Do you have any muscle aches/pain?: No Do you have any abdominal pain?: No Are you experiencing loss of taste or smell?: No Review of Systems Review of Systems Review of systems:: pertinent systems reviewed and negative unless documented below Constitutional Constitutional: Reports system reviewed and no additional complaints, except as documented *Cardiovascular Cardiovascular: Reports chest pain at rest and Reports dyspnea *Respiratory Respiratory: Reports system reviewed and no additional complaints, except as documented and Reports dyspnea *Gastrointestinal Gastrointestinal: Reports system reviewed and no additional complaints, except as documented *Neurologic Neurologic: Reports system reviewed and no additional complaints, except as documented and Denies confusion Psychiatric Psychiatric: Reports system reviewed and no additional complaints, except as documented and Denies confusion Exam Data for Last 24 hours Vital signs and Labs for Last 24 Hours: Temp Pulse Resp BP Pulse Ox O2 Del Method 98.4 F 58 L 17 147/77 H 98 Room Air 05/21/25 10:25 05/21/25 12:01 05/21/25 12:01 05/21/25 12:01 05/21/25 12:01 05/21/25 10:25 Laboratory Results - last 24 hr 05/21/25 10:21: WBC 7.9, RBC 4.56 L, Hgb 14.3, Hct 42.7, MCV 93.6, MCH 31.4 H, MCHC 33.5, RDW 12.6, Plt Count 152, MPV 11.5 H, Neut % (Auto) 49.1, Lymph % (Auto) 33.4, [place] % (Auto) 11.5 H, Eos % (Auto) 4.7, Baso % (Auto) 1.0, Neut # (Auto) 3.9, Lymph # (Auto) 2.6, [place] # (Auto) 0.9, Eos # (Auto) 0.4, Baso # (Auto) 0.1, Sodium 140, Potassium 4.2, Chloride 104, Carbon Dioxide 28, Anion Gap 12.2, BUN 39 H, Creatinine 1.80 H, Estimated Creat Clear 34, Estimated GFR 36 L, Est GFR ( Amer) 44 L, Glucose 173 H, Hemoglobin A1c 6.9 H, Calcium 9.4, Phosphorus 3.5, Magnesium 1.8, Total Bilirubin 0.7, AST 27, ALT 16, Alkaline Phosphatase 76, Troponin I 0.13 H, NT-Pro-B Natriuret Pep 387, Total Protein 7.0, Albumin 4.6, Globulin 2.4, Albumin/Globulin Ratio 1.9 H, Triglycerides 234 H, Cholesterol 170, VLDL Cholesterol 47 H, HDL Cholesterol 30 L, Cholesterol/HDL Ratio 5.7 H I & O for Last 24 hours: Intake & Output 05/18/25 05/19/25 05/20/25 05/21/25 23:59 23:59 23:59 23:59 Intake Total 458.333 / 458.333 Balance 458.333 / 458.333 Weight 180 lb Constitutional Constitutional: no acute distress *Routine Respiratory Exam Respiratory: Present CTA bilaterally and symmetric chest movement *Routine Cardiovascular Exam Cardiovascular: Present RRR, Normal S1 and Normal S2 *Routine Abdominal Exam Abdominal: Present soft and normoactive bowel sounds; Absent tenderness *Routine Extremities Exam Extremities: Present full ROM and normal capillary refill; Absent edema *Routine Skin Exam Skin: Present intact, dry and warm Detailed Neck Exam: Thyroids Thyroid: Absent bruit Meds Home Medications and Allergies Home Medications ?Medication ?Instructions ?Recorded ?Confirmed ?Type cholecalciferol (vitamin D3) 50 50 mcg PO DAILY #90 caps 02/21/24 11/28/24 Rx mcg (2,000 unit) capsule (Vitamin D3) glyburide 2.5 mg tablet 2.5 mg PO DAILY #30 tabs 02/21/24 11/28/24 Rx lisinopril 10 mg tablet 10 mg PO DAILY #90 tabs 02/21/24 11/28/24 Rx omeprazole 40 mg capsule,delayed 40 mg PO DAILY #90 caps 02/21/24 11/28/24 Rx release aspirin 81 mg chewable tablet 81 mg PO DAILY #90 tabs 09/26/24 11/28/24 Rx atorvastatin 40 mg tablet 40 mg PO HS 30 days #30 tabs 09/26/24 11/28/24 Rx levothyroxine 88 mcg tablet 88 mcg PO DAILY 11/28/24 11/28/24 History amlodipine 5 mg tablet See Rx Instructions .Route 01/02/25 Rx .COMPLEX #30 tabs bisoprolol fumarate 5 mg tablet See Rx Instructions .Route 03/04/25 Rx .COMPLEX #90 tabs clopidogrel 75 mg tablet See Rx Instructions .Route 04/28/25 Rx .COMPLEX #90 tabs New Prescriptions to Start Prescriptions: Allergies Allergy/AdvReac Type Severity Reaction Status Date / Time morphine Allergy Intermediate I-ITCHING Verified 11/28/24 13:19 Assessment and Plan *Assessment and plan (1) Acute non-ST elevation myocardial infarction (NSTEMI): Status: Acute Category: Medical Code(s): I21.4 - Non-ST elevation (NSTEMI) myocardial infarction (2) Coronary artery disease: Status: Acute Qualifiers: Coronary Disease-Associated Artery/Lesion type: [place] artery [place] vs. transplanted heart: [place] heart Associated angina: with stable angina Qualified Code(s): I25.118 - Atherosclerotic heart disease of [place] coronary artery with other forms of angina pectoris Category: Medical Code(s): I25.10 - Atherosclerotic heart disease of [place] coronary artery without angina pectoris Plan Coronary artery disease NSTEMI Trop 0.13 EKG negative for STEMI. Sinus rhythm with frequent PVCs noted a rate of 74. ST depressions are noted Will proceed with left heart catheterization for further evaluation of coronary artery disease. Discussed risk versus benefits with patient. He is agreeable Continue aspirin and statin Echo pending 05/21/2025: Awaiting [facility] today. Echo pending.
[2025-05-21 13:33] LABS: Thyroid Stimulating Hormone 4.04 uIU/mL (0.465-4.68)
[2025-05-21 14:14] LABS: Troponin I 0.13 ng/ml (0.00-0.034)
[2025-05-21] MEDS: NITROGLYCERIN 800MCG/8ML SYR (CATH LAB) 800 MCG IA (14:42)
[2025-05-21] MEDS: HEPARIN 1,000 UNITS/ML 10ML VIAL (CATH LAB) 5000 UNIT IV ×2 (14:43→15:19)
[2025-05-21] MEDS: LIDOCAINE 1% 10ML MDV 10 ML IJ (14:43)
[2025-05-21] MEDS: 0.9 % SODIUM CHLORIDE 500 ML 999 ML IV (14:43)
[2025-05-21] MEDS: VERAPAMIL 2.5MG/ML 2ML VIAL 2.5 MG IV (14:46)
[2025-05-21] MEDS: HEPARIN 1,000 UNITS/500ML NS (CATH LAB) 3000 UNIT IV (14:46)
[2025-05-21 14:56] LABS: Hepatitis C Ab Qual. W/ RFX NEGATIVE (Negative)
[2025-05-21] MEDS: MIDAZOLAM HCL 1MG/ML 5ML VIAL 1 MG IV ×2 (15:27→16:01)
[2025-05-21] MEDS: FENTANYL 100MCG/2ML VIAL 50 MCG IV ×2 (15:27→16:01)
[2025-05-21] MEDS: ASPIRIN EC 81MG TABLET 81 MG PO (15:38)
[2025-05-21] MEDS: CLOPIDOGREL 75MG TAB 75 MG PO (15:38)
[2025-05-21] MEDS: IOPAMIDOL-370 (76%);100ML BOTTLE 130 ML IV (16:19)
[2025-05-21 16:23] LABS: CATHL Activated Clotting Time 363 SEC (74-125)
[2025-05-21 16:24] LABS: CATHL Activated Clotting Time 293 SEC (74-125)
[2025-05-21 16:46] LABS: POC Glucose,Bedside 122 gm/dL (70-110)
[2025-05-21] MEDS: LACTATED RINGERS 1000ML 1,000 ML 50 ML IV (18:09)
--- NOTE | 2025-05-21 18:32 | PC.NURSE ---
pt resting in bed with family at bedside, call light in reach, 4 stents placed today in right raidal c/d/i
--- NOTE | 2025-05-21 19:00 | PC.NURSE ---
late entry: Pt's RN, Iram Escudero removed 2mls of air from pt's radialband at approx 1830. Site started oozing scant amount of blood, 4mls of air placed back in radialband. Site no longer oozing. Vital signs from [id number] documented by myself per Iram Escudero RNspikemaking supervisor.
[2025-05-21] MEDS: ATORVASTATIN 40MG TABLET 40 MG PO (20:28)
[2025-05-21] MEDS: PANTOPRAZOLE 40MG TABLET 40 MG PO (20:28)
[2025-05-21 20:46] LABS: POC Glucose,Bedside 145 gm/dL (70-110)
[2025-05-22] VITALS: BP 142/76; PULSE 74; RESP 21; TEMP 36.5; O2SAT 99
[2025-05-22 04:00] VITALS: BP 122/57; PULSE 75; RESP 14; O2SAT 96; BMI 23.8
[2025-05-22 06:00] LABS: POC Glucose,Bedside 121 gm/dL (70-110)
[2025-05-22 06:19] LABS: Hematocrit 36.3 % (42.0-52.0); Immature Granulocytes % 0.3 %; Mean Corpuscular HGB Conc 34.7 g/dL (31.8-35.4); Mean Corpuscular Hemoglobin 31.8 pg (27.0-31.2); Mean Corpuscular Volume 91.7 fl (80-94); Nucleated Red Blood Cells % 0 %; Platelet Count 132 K/mm3 (142-424); Red Blood Count 3.96 M/mm3 (4.60-6.20); Red Cell Distribution Width-SD 41.1 fL; White Blood Count 7.0 K/mm3 (4.8-10.8)
[2025-05-22 06:29] LABS: Alanine Aminotransferase 13 U/L (12-78); Albumin Level 3.7 g/dl (3.5-5.0); Albumin/Globulin Ratio 1.9 (1.1-1.8); Alkaline Phosphatase 69 U/L (38-126); Anion Gap 8.8 mEq/L (5-15); Aspartate Amino Transferase 26 U/L (17-59); Bilirubin,Total 0.5 mg/dl (0.2-1.3); Blood Urea Nitrogen 26 mg/dl (9-20); Calcium 8.7 mg/dl (8.4-10.2); Carbon Dioxide 25 mmol/L (22.0-30.0); Chloride 106 mmol/L (98-107); Creatinine Clearance Estimated 44 mL/min (50-200); Creatinine,Serum 1.40 mg/dl (0.66-1.25); Estimated Glomerular Filt Rate 48 ml/min (>60); GFR (African American) 58 ML/MIN (>60); Globulin 2.0 g/dL (1.3-3.2); Glucose 123 mg/dl (74-100); Magnesium 1.7 mg/dl (1.6-2.3); Potassium 3.8 mmoL/L (3.5-5.1); Sodium 136 mmol/L (136-145); Total Protein,Serum 5.7 g/dl (6.3-8.2)
--- NOTE | 2025-05-22 06:34 | PC.NURSE ---
Pt. presented to ED yesterday with chest pain. Pt. had NSTEMI and went to the [employer]. Pt had 4 stents placed and at change of shift. Pt. still had right radial band in place. and was on post cath VS. Right radial band was removed around 2300 lst night, gauze and tegaderm dressing was placed over site. dressing has remained clean, dry intact. Pt. is alert and orientated x 4. Pt. is on room air. denies chest pain or shortness of breath. Once radial bad removed he slept well. Personal items and call cervantes in reach. Bed in low and locked position. Safety measures in place.
[2025-05-22 07:41] LABS: Hemoglobin 12.6 g/dL (14.1-18.0)
[2025-05-22 08:00] VITALS: BP 150/76; PULSE 81; RESP 18; TEMP 36.4; O2SAT 99
--- NOTE | 2025-05-22 08:26 | HMH.PHAINT1 ---
Pharmacy Intervention Comments: HOME MEDICATION LIST VERIFIED USING LIST FROM SPOUSE, PCP OFFICE AND CARDIOLOGY OFFICE
[2025-05-22] MEDS: BISOPROLOL 5MG TABLET 5 MG PO (08:29)
[2025-05-22] MEDS: LEVOTHYROXINE 88MCG (0.088MG) TAB 88 MCG PO (08:29)
[2025-05-22] MEDS: CLOPIDOGREL 75MG TAB 75 MG PO (08:29)
[2025-05-22] MEDS: LISINOPRIL 10MG TABLET 10 MG PO (08:30)
[2025-05-22] MEDS: ASPIRIN EC 81MG TABLET 81 MG PO (08:30)
--- NOTE | 2025-05-22 09:14 | EXP.CARD.PN ---
Subjective Subjective Date: 05/22/25 Time: 08:00 Principal diagnosis: NSTEMI Interval history: s/p LHC yesterday with stenting, see cath report. Reports feeling better today. Denies chest pain or soa. Exam Data for Last 24 hours Vital signs and Labs for Last 24 Hours: Temp Pulse Resp BP Pulse Ox O2 Del Method 97.6 F 81 18 150/76 H 99 Room Air 05/22/25 08:00 05/22/25 08:00 05/22/25 08:00 05/22/25 08:00 05/22/25 08:00 05/22/25 08:00 Laboratory Results - last 24 hr 05/21/25 10:20: HCV Ab JULES w/Rflx PCR Qn Negative, HIV Ag/Ab Combo Qual Negative 05/21/25 10:21: WBC 7.9, RBC 4.56 L, Hgb 14.3, Hct 42.7, MCV 93.6, MCH 31.4 H, MCHC 33.5, RDW 12.6, Plt Count 152, MPV 11.5 H, Neut % (Auto) 49.1, Lymph % (Auto) 33.4, [place] % (Auto) 11.5 H, Eos % (Auto) 4.7, Baso % (Auto) 1.0, Neut # (Auto) 3.9, Lymph # (Auto) 2.6, [place] # (Auto) 0.9, Eos # (Auto) 0.4, Baso # (Auto) 0.1, Sodium 140, Potassium 4.2, Chloride 104, Carbon Dioxide 28, Anion Gap 12.2, BUN 39 H, Creatinine 1.80 H, Estimated Creat Clear 34, Estimated GFR 36 L, Est GFR ( Amer) 44 L, Glucose 173 H, Hemoglobin A1c 6.9 H, Calcium 9.4, Phosphorus 3.5, Magnesium 1.8, Total Bilirubin 0.7, AST 27, ALT 16, Alkaline Phosphatase 76, Troponin I 0.13 H, NT-Pro-B Natriuret Pep 387, Total Protein 7.0, Albumin 4.6, Globulin 2.4, Albumin/Globulin Ratio 1.9 H, Triglycerides 234 H, Cholesterol 170, LDL Cholesterol Direct 100.54, VLDL Cholesterol 47 H, HDL Cholesterol 30 L, Cholesterol/HDL Ratio 5.7 H, TSH 4.04 05/21/25 13:30: Troponin I 0.13 H 05/21/25 16:13: Activated Clotting Time 293 H* 05/21/25 16:39: POC Glucose 122 H 05/21/25 16:50: Activated Clotting Time 363 H* D 05/21/25 20:21: POC Glucose 145 H 05/22/25 05:53: POC Glucose 121 H 05/22/25 05:54: WBC 7.0, RBC 3.96 L, Hgb 12.6 L D, Hct 36.3 L, MCV 91.7, MCH 31.8 H, MCHC 34.7, RDW 12.3, Plt Count 132 L, MPV 11.4 H, Neut % (Auto) 58.7, Lymph % (Auto) 23.2, [place] % (Auto) 12.1 H, Eos % (Auto) 5.0, Baso % (Auto) 0.7, Neut # (Auto) 4.1, Lymph # (Auto) 1.6, [place] # (Auto) 0.9, Eos # (Auto) 0.4, Baso # (Auto) 0.1, Sodium 136, Potassium 3.8, Chloride 106, Carbon Dioxide 25, Anion Gap 8.8, BUN 26 H D, Creatinine 1.40 H D, Estimated Creat Clear 44, Estimated GFR 48 L, Est GFR ( Amer) 58 L D, Glucose 123 H D, Calcium 8.7, Magnesium 1.7, Total Bilirubin 0.5, AST 26, ALT 13, Alkaline Phosphatase 69, Total Protein 5.7 L, Albumin 3.7 D, Globulin 2.0, Albumin/Globulin Ratio 1.9 H I & O for Last 24 hours: Intake & Output 05/19/25 05/20/25 05/21/25 05/22/25 23:59 23:59 23:59 23:59 Intake Total 1318.333 / 1558.333 760 / 760 Output Total 350 / 550 450 / 450 Balance 968.333 / 1008.333 310 / 310 Weight 180 lb 179 lb 15.766 oz Constitutional Constitutional: no acute distress *Routine Respiratory Exam Respiratory: Present CTA bilaterally and symmetric chest movement *Routine Cardiovascular Exam Cardiovascular: Present RRR, Normal S1 and Normal S2 *Routine Abdominal Exam Abdominal: Present soft and normoactive bowel sounds; Absent tenderness *Routine Extremities Exam Extremities: Present full ROM and normal capillary refill; Absent edema *Routine Skin Exam Skin: Present intact, dry and warm Detailed Neck Exam: Thyroids Thyroid: Absent bruit Progress Note: A&P Assessment and plan (1) Acute non-ST elevation myocardial infarction (NSTEMI): Status: Acute Assessment and Plan Assessment and Plan for All Diagnoses:: Coronary artery disease NSTEMI Trop 0.13 EKG negative for STEMI. Sinus rhythm with frequent PVCs noted a rate of 74. ST depressions are noted [facility] 05/21: Stenting to the left main artery, ostial dominant circumflex artery, mid circumflex artery, proximal LAD and mid LAD. Normal LVEDP Continue DAPT with aspirin and Plavix Continue statin Echo shows a normal ef Creatinine improving down to 1.4 today Hypertension Continue bisoprolol and lisinopril 05/22/2025: Patient is CV stable for discharge home. Please have patient follow-up in cardiology clinic in 1 to 2 weeks for reevaluation.
--- NOTE | 2025-05-22 10:35 | EXP.DC.SUM ---
General Admission date:: 05/21/25 HPI HPI HPI: Layo Bergeron is a 84-year-old male with medical history significant for CAD with 2 stents, type 2 diabetes, CKD, hypertension, hypothyroidism, GERD who presents with several day history of midsternal chest pain and worsening leg swelling. Patient states this chest pain was aching in nature and got progressively worse to the point where he decided come to the ED. He also notes he has had bilateral leg swelling, pain for about 1 to 2 weeks for which his PCP prescribed Lasix 40 mg which he has been adherent to. He denies fever/chills, shortness of breath, cough, abdominal pain. He also notes he did have some alleviation of chronic chest pain with 2 stents in August but has had on and off chest pain since then still. Workup in the ED significant for creatinine 1.8, hemoglobin A1c 6.9%, troponin 0.13, EKG without acute ischemic changes, CXR without acute findings. He received aspirin 324 mg on EMS and given additional IV nitroglycerin in the ER with NS 100 mL liter bolus. Given his presentation ER consulted Dr. Lynn who recommended further evaluation with a left heart cath and admission. I was consulted by the ED provider and I decided to admit patient for further evaluation management. Hospital Course Hospital Course Hospital Course: Layo Bergeron is a 84-year-old male with medical history significant for CAD with 2 stents, type 2 diabetes, CKD, hypertension, hypothyroidism, GERD who presents with several day history of midsternal chest pain and worsening leg swelling. Patient states this chest pain was aching in nature and got progressively worse to the point where he decided come to the ED. He also notes he has had bilateral leg swelling, pain for about 1 to 2 weeks for which his PCP prescribed Lasix 40 mg which he has been adherent to. He denies fever/chills, shortness of breath, cough, abdominal pain. He also notes he did have some alleviation of chronic chest pain with 2 stents in August but has had on and off chest pain since then still. Workup in the ED significant for creatinine 1.8, hemoglobin A1c 6.9%, troponin 0.13, EKG without acute ischemic changes, CXR without acute findings. He received aspirin 324 mg on EMS and given additional IV nitroglycerin in the ER with NS 100 mL liter bolus. Given his presentation ER consulted Dr. Lynn who recommended further evaluation with a left heart cath and admission. I was consulted by the ED provider and I decided to admit patient for further evaluation management. #NSTEMI type I #CAD with stents #Hypertension #Hyperlipidemia #CKD stage III ? Patient presented with progressive midsternal chest pain and was found to have an NSTEMI with troponin 0.13. ? Cardiology consulted, s/p PCI on 05/21/2025, received BRENT x 4 to circumflex and LAD arteries. Patient tolerated procedure well. Feels better, no longer having chest pain. ? Initial BNP 387, low suspicion for congestive heart failure. Likely venous insufficiency. Advised to elevate legs, and start using compression stockings to which he and are amenable. They have some at home. ? Discontinued amlodipine due initial pressure from swelling, increase lisinopril to 20 mg daily. ? A1c 6.9%, LDL 100, TSH normal. ECHO revealed normal biventricular systolic function without wall motion abnormalities. ? Continue home aspirin 81 mg, Plavix 75 mg, atorvastatin 40 mg, bisoprolol 5 mg. ? Follow-up with cardiology within 2 weeks. #Type 2 diabetes ? A1c 6.9 percent, continue home glyburide. #Hypothyroidism ? Continue home levothyroxine 88 mcg. TSH normal. #GERD ? Continue home PPI. Exam Data for Last 24 hours Vital signs and Labs for Last 24 Hours: Temp Pulse Resp BP Pulse Ox O2 Del Method 97.6 F 81 18 150/76 H 99 Room Air 05/22/25 08:00 05/22/25 08:00 05/22/25 08:00 05/22/25 08:00 05/22/25 08:00 05/22/25 08:00 Laboratory Results - last 24 hr 05/21/25 10:20: HCV Ab JULES w/Rflx PCR Qn Negative, HIV Ag/Ab Combo Qual Negative 05/21/25 10:21: WBC 7.9, RBC 4.56 L, Hgb 14.3, Hct 42.7, MCV 93.6, MCH 31.4 H, MCHC 33.5, RDW 12.6, Plt Count 152, MPV 11.5 H, Neut % (Auto) 49.1, Lymph % (Auto) 33.4, [place] % (Auto) 11.5 H, Eos % (Auto) 4.7, Baso % (Auto) 1.0, Neut # (Auto) 3.9, Lymph # (Auto) 2.6, [place] # (Auto) 0.9, Eos # (Auto) 0.4, Baso # (Auto) 0.1, Sodium 140, Potassium 4.2, Chloride 104, Carbon Dioxide 28, Anion Gap 12.2, BUN 39 H, Creatinine 1.80 H, Estimated Creat Clear 34, Estimated GFR 36 L, Est GFR ( Amer) 44 L, Glucose 173 H, Hemoglobin A1c 6.9 H, Calcium 9.4, Phosphorus 3.5, Magnesium 1.8, Total Bilirubin 0.7, AST 27, ALT 16, Alkaline Phosphatase 76, Troponin I 0.13 H, NT-Pro-B Natriuret Pep 387, Total Protein 7.0, Albumin 4.6, Globulin 2.4, Albumin/Globulin Ratio 1.9 H, Triglycerides 234 H, Cholesterol 170, LDL Cholesterol Direct 100.54, VLDL Cholesterol 47 H, HDL Cholesterol 30 L, Cholesterol/HDL Ratio 5.7 H, TSH 4.04 05/21/25 13:30: Troponin I 0.13 H 05/21/25 16:13: Activated Clotting Time 293 H* 05/21/25 16:39: POC Glucose 122 H 05/21/25 16:50: Activated Clotting Time 363 H* D 05/21/25 20:21: POC Glucose 145 H 05/22/25 05:53: POC Glucose 121 H 05/22/25 05:54: WBC 7.0, RBC 3.96 L, Hgb 12.6 L D, Hct 36.3 L, MCV 91.7, MCH 31.8 H, MCHC 34.7, RDW 12.3, Plt Count 132 L, MPV 11.4 H, Neut % (Auto) 58.7, Lymph % (Auto) 23.2, [place] % (Auto) 12.1 H, Eos % (Auto) 5.0, Baso % (Auto) 0.7, Neut # (Auto) 4.1, Lymph # (Auto) 1.6, [place] # (Auto) 0.9, Eos # (Auto) 0.4, Baso # (Auto) 0.1, Sodium 136, Potassium 3.8, Chloride 106, Carbon Dioxide 25, Anion Gap 8.8, BUN 26 H D, Creatinine 1.40 H D, Estimated Creat Clear 44, Estimated GFR 48 L, Est GFR ( Amer) 58 L D, Glucose 123 H D, Calcium 8.7, Magnesium 1.7, Total Bilirubin 0.5, AST 26, ALT 13, Alkaline Phosphatase 69, Total Protein 5.7 L, Albumin 3.7 D, Globulin 2.0, Albumin/Globulin Ratio 1.9 H I & O for Last 24 hours: Intake & Output 05/19/25 05/20/25 05/21/25 05/22/25 23:59 23:59 23:59 23:59 Intake Total 1318.333 / 1558.333 760 / 760 Output Total 350 / 550 450 / 450 Balance 968.333 / 1008.333 310 / 310 Weight 81.647 kg 81.64 kg Results Data Completed and Pending Labs on day of discharge: Labs from last 24 hours 05/22/25 05/22/25 05/21/25 05:54 05:53 20:21 WBC 7.0 RBC 3.96 L Hgb 12.6 L D Hct 36.3 L MCV 91.7 MCH 31.8 H MCHC 34.7 RDW 12.3 Plt Count 132 L MPV 11.4 H Neut % (Auto) 58.7 Lymph % (Auto) 23.2 [place] % (Auto) 12.1 H Eos % (Auto) 5.0 Baso % (Auto) 0.7 Neut # (Auto) 4.1 Lymph # (Auto) 1.6 [place] # (Auto) 0.9 Eos # (Auto) 0.4 Baso # (Auto) 0.1 Activated Clotting Time Sodium 136 Potassium 3.8 Chloride 106 Carbon Dioxide 25 Anion Gap 8.8 BUN 26 H D Creatinine 1.40 H D Estimated Creat Clear 44 Estimated GFR 48 L Est GFR ( Amer) 58 L D Glucose 123 H D POC Glucose 121 H 145 H Hemoglobin A1c Calcium 8.7 Phosphorus Magnesium 1.7 Total Bilirubin 0.5 AST 26 ALT 13 Alkaline Phosphatase 69 Troponin I NT-Pro-B Natriuret Pep Total Protein 5.7 L Albumin 3.7 D Globulin 2.0 Albumin/Globulin Ratio 1.9 H Triglycerides Cholesterol LDL Cholesterol Direct VLDL Cholesterol HDL Cholesterol Cholesterol/HDL Ratio TSH HCV Ab JULES w/Rflx PCR Qn HIV Ag/Ab Combo Qual 05/21/25 05/21/2505/21/25 16:50 16:39 16:13 WBC RBC Hgb Hct MCV MCH MCHC RDW Plt Count MPV Neut % (Auto) Lymph % (Auto) [place] % (Auto) Eos % (Auto) Baso % (Auto) Neut # (Auto) Lymph # (Auto) [place] # (Auto) Eos # (Auto) Baso # (Auto) Activated Clotting Time 363 H* D 293 H* Sodium Potassium Chloride Carbon Dioxide Anion Gap BUN Creatinine Estimated Creat Clear Estimated GFR Est GFR ( Amer) Glucose POC Glucose 122 H Hemoglobin A1c Calcium Phosphorus Magnesium Total Bilirubin AST ALT Alkaline Phosphatase Troponin I NT-Pro-B Natriuret Pep Total Protein Albumin Globulin Albumin/Globulin Ratio Triglycerides Cholesterol LDL Cholesterol Direct VLDL Cholesterol HDL Cholesterol Cholesterol/HDL Ratio TSH HCV Ab JULES w/Rflx PCR Qn HIV Ag/Ab Combo Qual 05/21/25 05/21/25 05/21/25 13:30 10:21 10:20 WBC 7.9 RBC 4.56 L Hgb 14.3 Hct 42.7 MCV 93.6 MCH 31.4 H MCHC 33.5 RDW 12.6 Plt Count 152 MPV 11.5 H Neut % (Auto) 49.1 Lymph % (Auto) 33.4 [place] % (Auto) 11.5 H Eos % (Auto) 4.7 Baso % (Auto) 1.0 Neut # (Auto) 3.9 Lymph # (Auto) 2.6 [place] # (Auto) 0.9 Eos # (Auto) 0.4 Baso # (Auto) 0.1 Activated Clotting Time Sodium 140 Potassium 4.2 Chloride 104 Carbon Dioxide 28 Anion Gap 12.2 BUN 39 H Creatinine 1.80 H Estimated Creat Clear 34 Estimated GFR 36 L Est GFR ( Amer) 44 L Glucose 173 H POC Glucose Hemoglobin A1c 6.9 H Calcium 9.4 Phosphorus 3.5 Magnesium 1.8 Total Bilirubin 0.7 AST 27 ALT 16 Alkaline Phosphatase 76 Troponin I 0.13 H 0.13 H NT-Pro-B Natriuret Pep 387 Total Protein 7.0 Albumin 4.6 Globulin 2.4 Albumin/Globulin Ratio 1.9 H Triglycerides 234 H Cholesterol 170 LDL Cholesterol Direct 100.54 VLDL Cholesterol 47 H HDL Cholesterol 30 L Cholesterol/HDL Ratio 5.7 H TSH 4.04 HCV Ab JULES w/Rflx PCR Qn Negative HIV Ag/Ab Combo Qual Negative DS: Diagnosis Discharge Diagnosis (1) Acute non-ST elevation myocardial infarction (NSTEMI): Status: Acute Code(s): I21.4 - Non-ST elevation (NSTEMI) myocardial infarction Meds Home Medications and Allergies Home Medications ?Medication ?Instructions ?Recorded ?Confirmed ?Type glyburide 2.5 mg tablet 2.5 mg PO DAILY #30 tabs 02/21/24 05/22/25 Rx omeprazole 40 mg capsule,delayed 40 mg PO DAILY #90 caps 02/21/24 05/21/25 Rx release aspirin 81 mg chewable tablet 81 mg PO DAILY #90 tabs 09/26/24 05/21/25 Rx atorvastatin 40 mg tablet 40 mg PO HS 30 days #30 tabs 09/26/24 05/22/25 Rx levothyroxine 88 mcg tablet 88 mcg PO DAILY 11/28/24 05/21/25 History bisoprolol fumarate 5 mg tablet 5 mg PO DAILY 05/21/25 05/21/25 History clopidogrel 75 mg tablet 75 mg PO DAILY 05/21/25 05/22/25 History lisinopril 10 mg tablet 20 mg (2 x 10 mg) PO DAILY #90 tabs 05/22/25 05/22/25 Rx New Prescriptions to Start Prescriptions: Allergies Allergy/AdvReac Type Severity Reaction Status Date / Time morphine Allergy Intermediate I-ITCHING Verified 11/28/24 13:19 Discharge Plan Disposition Patient Disposition: Home, Self-Care Condition: Fair Discharge Order Discharge Orders: Discharge Order (Routine); Ordered 05/22/25 Ordered By: Werner Cox Follow up Plan Follow up with: Yancy Contreras APRN [Nurse Practitioner, Cardiology] - 05/28/25 9:15 am Prescriptions/Medication Reconciliation: Continued levothyroxine 88 mcg tablet 88 mcg PO DAILY Patient Comments: TAKE 1 TABLET BY MOUTH ONCE DAILY omeprazole 40 mg Capsule,Delayed Release(Dr/Ec) 40 mg PO DAILY Qty: 90 0RF glyburide 2.5 mg tablet 2.5 mg PO DAILY Qty: 30 0RF atorvastatin 40 mg Tablet 40 mg PO HS 30 Days Qty: 30 0RF aspirin 81 mg Tablet,Chewable 81 mg PO DAILY Qty: 90 0RF clopidogrel 75 mg tablet 75 mg PO DAILY Rx Instructions: TAKE 1 TABLET BY MOUTH ONCE DAILY bisoprolol fumarate 5 mg tablet 5 mg PO DAILY Rx Instructions: Take 1 tablet by mouth once daily Changed lisinopril 10 mg Tablet 20 mg PO DAILY Qty: 90 0RF Discontinued furosemide [Lasix] 40 mg Tablet 40 mg PO DAILY amlodipine 5 mg tablet 5 mg PO DAILY Rx Instructions: TAKE 1 TABLET BY MOUTH ONCE DAILY Other Ambulatory Orders: Complete Blood Count Man Dif (Routine) Timeframe: 20250528 Facility: [facility] - Location: Laboratory Ordered By: Neymar Ballesteros Comprehensive Metabolic Panel (Routine) Timeframe: 20250528 Facility: [facility] - Location: Laboratory Ordered By: Neymar Ballesteros Problem Reconciliation Problems Reviewed?: Yes Patient Discharge Instructions Patient Instructions: DI for Heart Attack, DI for Cardiac Catheterization, DI for Surgical Site Infection Print Language: Guyanese Providers Primary Care Provider: Magalie White Admit Provider: Werner Cox Attending Provider: Werner Cox
[2025-05-22 11:46] LABS: POC Glucose,Bedside 205 gm/dL (70-110)
[2025-05-22 11:48] VITALS: BP 133/74; PULSE 75; RESP 17; TEMP 36.4; O2SAT 98
--- NOTE | 2025-05-26 09:11 | SW/DCPLANNER ---
Spoke with patient on the phone. Patient stated that he is doing well. Patient stated that he is aware of his upcoming appointments. Patient stated that he was able to get his new medicine picked up. Patient stated that he has no concerns or questions at this time. Divina Bruno
== END 2025-05-22 13:48 | disposition home or self-care (01) | DRG 321 ==
LOC: ER 13:41 → 2ND 14:00
PROVIDERS: Internal Medicine; Physician Assistant; Admitting Provider Student in an Organized Health Care Education/Training Program; Emergency Provider Student in an Organized Health Care Education/Training Program; PCP Nurse Practitioner Family; Visit Provider Student in an Organized Health Care Education/Training Program
PROC: 4A023N7 Measurement of Cardiac Sampling and Pressure, Left Heart, Percutaneous Approach (ICD-10-PCS; CPT 93452; principal; 2025-05-21 13:45)
DX: I21.4 Non-ST elevation (NSTEMI) myocardial infarction (principal); N17.9 Acute kidney failure, unspecified; I25.10 Atherosclerotic heart disease of native coronary artery without angina pectoris; E11.22 Type 2 diabetes mellitus with diabetic chronic kidney disease; I12.9 Hypertensive chronic kidney disease with stage 1 through stage 4 chronic kidney disease, or unspecified chronic kidney disease; E03.9 Hypothyroidism, unspecified; N18.30 Chronic kidney disease, stage 3 unspecified; E78.5 Hyperlipidemia, unspecified; I87.2 Venous insufficiency (chronic) (peripheral); K21.9 Gastro-esophageal reflux disease without esophagitis; T50.1X5A Adverse effect of loop [high-ceiling] diuretics, initial encounter; Z95.5 Presence of coronary angioplasty implant and graft; Z88.5 Allergy status to narcotic agent; Z79.890 Hormone replacement therapy; Z79.82 Long term (current) use of aspirin; Z79.02 Long term (current) use of antithrombotics/antiplatelets; Z79.84 Long term (current) use of oral hypoglycemic drugs; Z79.899 Other long term (current) drug therapy
CPT/HCPCS: 36415; 71045; 80053; 80061; 82962; 83036; 83735; 83880; 84100; 84443; 84484; 85025; 85347; 86803; 87389; 93005; 93306; 99152; 99153; 99285; C1725; C1769; C1874; C1887; J1200; J1644; J1650; J2250; J3010; J7040; J7120; Q9967

== ENCOUNTER → 2025-05-26 14:57 | Outpatient (RCR) | payer MEDICARE, SELFPAY | LOC: CR 14:57 | PROVIDERS: PCP Nurse Practitioner Family; Visit Provider Internal Medicine | DX: I25.118 Atherosclerotic heart disease of native coronary artery with other forms of angina pectoris (principal); I49.3 Ventricular premature depolarization; I10 Essential (primary) hypertension ==

== ENCOUNTER 2025-05-28 08:13 | Outpatient (CLI) | payer MEDICARE, SELFPAY ==
[2025-05-28 08:31] LABS: Hematocrit 39.3 % (42.0-52.0); Hemoglobin 13.1 g/dL (14.1-18.0); Mean Corpuscular HGB Conc 33.3 g/dL (31.8-35.4); Mean Corpuscular Hemoglobin 31.1 pg (27.0-31.2); Mean Corpuscular Volume 93.3 fl (80-94); Platelet Count 149 K/mm3 (142-424); Red Blood Count 4.21 M/mm3 (4.60-6.20); White Blood Count 7.4 K/mm3 (4.8-10.8)
[2025-05-28 09:16] LABS: Alanine Aminotransferase 22 U/L (12-78); Albumin Level 4.0 g/dl (3.5-5.0); Albumin/Globulin Ratio 2.0 (1.1-1.8); Alkaline Phosphatase 103 U/L (38-126); Anion Gap 8.6 mEq/L (5-15); Aspartate Amino Transferase 26 U/L (17-59); Bilirubin,Total 0.4 mg/dl (0.2-1.3); Blood Urea Nitrogen 17 mg/dl (9-20); Calcium 8.8 mg/dl (8.4-10.2); Carbon Dioxide 27 mmol/L (22.0-30.0); Chloride 104 mmol/L (98-107); Creatinine,Serum 1.40 mg/dl (0.66-1.25); Estimated Glomerular Filt Rate 48 ml/min (>60); GFR (African American) 58 ML/MIN (>60); Globulin 2.0 g/dL (1.3-3.2); Glucose 181 mg/dl (74-100); Potassium 3.6 mmoL/L (3.5-5.1); Sodium 136 mmol/L (136-145); Total Protein,Serum 6.0 g/dl (6.3-8.2)
[2025-05-28 10:57] LABS: Total Cells Counted 100
[2025-05-28 11:01] LABS: RBC Morphology Normal
== END 2025-05-28 23:59 | disposition home or self-care (01) ==
LOC: LAB 08:15
PROVIDERS: PCP Nurse Practitioner Family; Visit Provider Internal Medicine
DX: I21.4 Non-ST elevation (NSTEMI) myocardial infarction (principal)
CPT/HCPCS: 36415; 80053; 85007; 85014; 85018; 85048; 85049